=== PATIENT | female | born 1940 | race Asian ===

== ENCOUNTER → 2016-07-05 | Outpatient (CLI) | payer BC ==
[~2016-07-05] MED LIST: MULT-506 PO; PANT40TA PO
== END | disposition home or self-care (01) ==
LOC: C.PAPS 10:36
PROVIDERS: ATTEND Obstetrics & Gynecology
DX: Z12.4 Encounter for screening for malignant neoplasm of cervix (principal)

== ENCOUNTER → 2016-08-21 | Outpatient (CLI) | payer BC ==
[2016-08-21 16:58] LABS: BASO % 1.1 %; BASO ABS # 0.06 K/uL (0-0.2); COMPLETE YES; EOS % 0.8 %; HEMATOCRIT 39.7 % (37-47); IG% 0.2 %; LYMPH % 45.4 %; LYMPH ABS # 2.42 K/uL (1.2-3.4); MEAN CELL VOLUME 93.2 fL (80-100); MEAN CORPUSCULAR HEMOGLOBIN 31.7 pg (25-34); MEAN PLATELET VOLUME 11.5 fL (7.4-10.4); MONO % 6.9 %; NEUT % 45.6 %; PLATELET COUNT 227 K/uL (130-400); RED BLOOD COUNT 4.26 M/uL (4.2-5.4); WHITE BLOOD COUNT 5.33 K/uL (4.8-10.8)
[2016-08-21 17:09] LABS: BLOOD UREA NITROGEN 23 mg/dl (7-18); CALCIUM 9.2 mg/dl (8.5-10.1); CARBON DIOXIDE 29 mmol/L (21-32); CHLORIDE 102 mmol/L (98-107); CREATININE 0.71 mg/dl (0.60-1.20); GLUCOSE 81 mg/dl (70-99); POTASSIUM 3.7 mmol/L (3.5-5.1); SODIUM 139 mmol/L (136-145)
[2016-08-21 17:20] LABS: THYROID STIMULATING HORMONE 0.752 uIu/ml (0.300-4.500)
== END | disposition home or self-care (01) ==
LOC: C.LABBC 13:22
PROVIDERS: ATTEND Internal Medicine Geriatric Medicine
DX: L65.9 Nonscarring hair loss, unspecified (principal); M81.0 Age-related osteoporosis without current pathological fracture; E55.9 Vitamin D deficiency, unspecified

== ENCOUNTER → 2016-11-02 | Outpatient (CLI) | payer BC | END | disposition home or self-care (01) | LOC: C.MAMM 10:11 | PROVIDERS: ATTEND Internal Medicine | DX: M81.0 Age-related osteoporosis without current pathological fracture (principal) ==

== ENCOUNTER → 2017-02-23 | Outpatient (CLI) | payer BC ==
[2017-02-23 16:58] LABS: BLOOD UREA NITROGEN 20 mg/dl (7-18); CREATININE 0.72 mg/dl (0.60-1.20)
== END | disposition home or self-care (01) ==
LOC: C.LABBC 14:12
PROVIDERS: ATTEND Podiatrist Foot & Ankle Surgery
DX: G57.61 Lesion of plantar nerve, right lower limb (principal)

== ENCOUNTER → 2017-02-26 | Outpatient (CLI) | payer BC ==
--- NOTE | 2017-02-26 15:50 | MAMMOGRAPHY REPORT ---
BILATERAL DIGITAL SCREENING MAMMOGRAM WITH CAD: 02/26/2017 CLINICAL HISTORY: Routine screening. Patient has no complaints. TECHNIQUE: Bilateral CC and MLO views were obtained. Current study was also evaluated with a Compute r Aided Detection (CAD) system. COMPARISON: Comparison is made to exams dated: 02/21/2016 mammogram, 02/18/2015 mammogram, 02/17/2014 m ammogram, 01/17/2013 mammogram, 12/28/2010 mammogram, and 04/12/2010 stereotactic biopsy - [facility]. BREAST COMPOSITION: The tissue of both breasts is heterogeneously dense, which may obscure small mas ses. FINDINGS: There is a stable kymberly-shaped metallic biopsy marker in the central right breast. A few carine ign coarse calcifications bilaterally and stable grouping of punctate microcalcifications in the late ral left breast. Mild vascular calcification in both breasts. No new suspicious mass, architectural distortion or cluster of microcalcifications is seen. IMPRESSION: ACR BI-RADS CATEGORY 1: NEGATIVE There is no mammographic evidence of malignancy. A 1 year screening mammogram is recommended. The pa tient will receive written notification of the results. Approximately 10% of breast cancers are not detected with mammography. A negative mammographic report should not delay biopsy if a clinically suggestive mass is present. Marilee Shea M.D. ay/:02/26/2017 15:12:40 Stave Bolt Equalizer: Vidhi QUISPE(R)(M), [facility] letter sent: Normal 1/2 BI-RADS Code: ACR BI-RADS Category 1: Negative
== END | disposition home or self-care (01) ==
LOC: C.MAMM 13:13
PROVIDERS: ATTEND Obstetrics & Gynecology
DX: Z12.31 Encounter for screening mammogram for malignant neoplasm of breast (principal)

== ENCOUNTER → 2017-02-28 | Outpatient (CLI) | payer BC ==
[~2017-02-28] MED LIST changes: +GADAVIST IV PRN
--- NOTE | 2017-02-28 11:26 | DIAGNOSTIC IMAGING REPORT ---
RIGHT FOREFOOT MRI WITH AND WITHOUT INTRAVENOUS CONTRAST HISTORY: Right forefoot pain. 4th toe abnormality. LESION TECHNIQUE: Multiplanar multisequence MRI of the right forefoot was performed both before and after the intravenous administration of contrast. COMPARISON STUDY: None. FINDINGS: No fracture or dislocation within the forefoot. Mild osteoarthritis at the first MTP joint with mild subchondral edema likely due to the degenerative change at the head of the first metatarsal. There is a mild hallux valgus deformity. Bony bunion. No enhancing soft tissue masses identified within the forefoot. No fluid collections. The flexor and extensor tendons appear to be intact. There is mild motion artifact. No abnormal enhancement. IMPRESSION: 1. No masses within the right forefoot. 2. Mild degenerative changes at the first MTP joint. 3. Bony bunion. Electronically signed by: Arvin Silvestre M.D. 02/28/2017 11:25 AM Dictated Date/Time: 02/28/2017 11:17 AM
== END | disposition home or self-care (01) ==
LOC: C.MRI 09:21
PROVIDERS: ATTEND Podiatrist Foot & Ankle Surgery
DX: G57.61 Lesion of plantar nerve, right lower limb (principal); M21.611 Bunion of right foot

== ENCOUNTER → 2017-05-18 | Outpatient (CLI) | payer BC ==
[~2017-05-18] MED LIST changes: -GADAVIST IV PRN
[2017-05-18 13:37] LABS: THYROID STIMULATING HORMONE 0.962 uIu/ml (0.300-4.500)
[2017-05-18 13:50] LABS: LYME DISEASE AB IGG NEG (NEG); LYME DISEASE AB IGM NEG (NEG)
== END | disposition home or self-care (01) ==
LOC: C.LABBC 09:55
PROVIDERS: ATTEND Internal Medicine
DX: E55.9 Vitamin D deficiency, unspecified (principal)

== ENCOUNTER → 2017-06-07 | Outpatient (CLI) | payer BC ==
--- NOTE | 2017-06-07 14:20 | DIAGNOSTIC IMAGING REPORT ---
LEFT KNEE 2 VIEWS CLINICAL HISTORY: Chronic left knee pain FINDINGS: AP and lateral views of the left knee are obtained. No prior studies are available for comparison at the time of dictation. The skeletal structures are osteopenic. No fracture is seen. There is mild tricompartmental degenerative joint space narrowing, greatest at the patellofemoral articulation. There are small patellar enthesophytes as well as degenerative beaking of the tibial spine. A calcified fabella is incidentally noted. There is no significant joint effusion. The overlying soft tissues are within normal limits. IMPRESSION: Osteopenia and mild arthritic change as above. No acute bony abnormality is seen in the left knee. Electronically signed by: Bautista Fulton M.D. 06/07/2017 2:19 PM Dictated Date/Time: 06/07/2017 2:18 PM
--- NOTE | 2017-06-07 14:20 | DIAGNOSTIC IMAGING REPORT ---
R KNEE 1 OR 2 VIEWS ROUTINE HISTORY: 76 years-old Female M54.5 Chronic low back painM25.50 Arthralgia of multiple sitesR7 chronic right knee pain COMPARISON: Left knee radiographs of same day TECHNIQUE: 2 views of the right knee FINDINGS: Mild tricompartment osteoarthritis with mildly demineralized appearance of the bones. Small joint effusion without acute fracture or dislocation. No intra-articular loose body. IMPRESSION: 1. Small joint effusion without acute fracture or dislocation. 2. Mild tricompartmental osteoarthritis. The above report was generated using voice recognition software. It may contain grammatical, syntax or spelling errors. Electronically signed by: Titi Patino M.D. 06/07/2017 2:19 PM Dictated Date/Time: 06/07/2017 2:18 PM
[2017-06-07 17:54] LABS: TRANSFERRIN 271 mg/dl (200-360)
[2017-06-12 04:40] LABS: ANA SCREEN TC 249X POSITIVE (NEGATIVE); ANTI-SS-A <1.0 NEG AI (<1.0 NEG); ANTI-SS-B <1.0 NEG AI (<1.0 NEG); COMPLEMENT C4** TC 44982E 29 MG/DL (16-47)
--- NOTE | 2017-06-12 09:57 | CODING QUERY MEDICAL NECESSITY ---
CQSUPPORTING DIAGNOSIS NEEDED A supporting diagnosis is required for the test/procedure performed on this patient in order for us to be reimbursed by the patient's insurance. Please provide a supporting diagnosis for the following test/procedure listed below next to the test name along with your signature. *If there is no additional diagnosis for this patient that would support the following test/procedure please document that below next to the test/procedure. Test(s)/Procedure(s) that require a supporting diagnosis: DOS 06/07/17 HISTOLOGY TESTING Provider Signature: Date: Thank you Darcie Ortiz [employer] Information Management Once completed, please kindly fax back to [phone] For questions please call [phone]
== END | disposition home or self-care (01) ==
LOC: C.RAD1850 13:55
PROVIDERS: ATTEND Internal Medicine Rheumatology
DX: M25.50 Pain in unspecified joint (principal); M54.5 Low back pain; R76.8 Other specified abnormal immunological findings in serum; M85.88 Other specified disorders of bone density and structure, other site; M25.461 Effusion, right knee; M46.90 Unspecified inflammatory spondylopathy, site unspecified

== ENCOUNTER → 2017-06-12 | Outpatient (CLI) | payer BC ==
--- NOTE | 2017-06-12 13:40 | DIAGNOSTIC IMAGING REPORT ---
BONE SCAN WHOLE BODY HISTORY: Pain. Arthritis. M54.5 Chronic low back painM25.50 Arthralgia of multiple sitesR7 RADIOTRACER: 26.3 mCi Tc-99m MDP STUDY/IMAGES: Planar anterior and posterior whole body imaging was performed 3 hours following the intravenous administration of radiotracer. COMPARISON: 11/06/2006 FINDINGS: Bilateral renal activity is present. Minimal scattered degenerative activity of the shoulders hips as well as knees. No significant abnormal activity characteristics of the spine. Sacroiliac joints show normal activity characteristics. No abnormal soft tissue activity characteristics. IMPRESSION: Minimal degenerative activity in the shoulders hips and knees. Otherwise negative bone scan. The foci of degenerative activity of the spine and ribs in the prior study are not easily appreciated on the current exam. The above report was generated using voice recognition software. It may contain grammatical, syntax or spelling errors. Electronically signed by: Rl Curry M.D. 06/12/2017 1:38 PM Dictated Date/Time: 06/12/2017 1:36 PM
== END | disposition home or self-care (01) ==
LOC: C.NUCL 09:31
PROVIDERS: ATTEND Internal Medicine Rheumatology
DX: M25.50 Pain in unspecified joint (principal); M54.5 Low back pain; R76.8 Other specified abnormal immunological findings in serum

== ENCOUNTER → 2017-08-24 | Outpatient (CLI) | payer BC | END | disposition home or self-care (01) | LOC: C.RDSM 16:34 | PROVIDERS: ATTEND Physical Medicine & Rehabilitation Sports Medicine | DX: M79.671 Pain in right foot (principal); M79.672 Pain in left foot ==

== ENCOUNTER 2024-11-27 11:24 | Inpatient (IN) ==
[2024-11-27] MEDS: SODIUM CHLORIDE 0.9% 1,000 ML IV SCH ×3 (11:46→19:43)
--- NOTE | 2024-11-27 11:49 | Emergency Department Note ---
Impression & Plan Babesiosis, Sepsis, Acute hyponatremia, Acute hypotension ED Provider Note NAME: ALEX VALLE AGE: 83 SEX: F : 1940 ARRIVES VIA: Walk-In INFORMANT: Patient ED PROVIDER(S): Kenneth Byrd DO CHIEF COMPLAINT: Weakness HPI: Patient is an 83-year-old female with a past medical history of a T11 compression fracture, glaucoma, TMJ, leukopenia, IBS who presents to the ER for weakness. Per the daughter she fell 3 weeks ago and had a back fracture. She had a brace. She started with fevers yesterday. She has been unable to really get out of bed. Fevers have been as high as 104. She denies all complaints including cough, congestion, and runny nose. No headache or change in vision. No chest pain or shortness of breath. No belly pain. No nausea, vomiting, or diarrhea. No dysuria, urgency, or frequency. She was to persistent unchanged back pain. ADDITIONAL HISTORY OBTAINED: Per HPI Chronic Medical/Social Conditions Affecting Care: Per HPI PAST MEDICAL HISTORY:See Below PAST SURGICAL HISTORY:See Below FAMILY HISTORY:See Below SOCIAL HISTORY:See Below HOME MEDICATIONS:See Below ALLERGIES:See Below VITALS:See Below PHYSICAL EXAMINATION: GENERAL: Sitting up in bed, alert, well appearing, well nourished, no distress, non-toxic EYE EXAM: normal conjunctiva. PERRL and EOM's grossly intact. OROPHARYNX: Dry mucous membranes NECK: supple, no nuchal rigidity, no adenopathy, non-tender LUNGS: Clear to auscultation. Normal chest wall mechanics HEART: no murmurs, S1 normal and S2 normal ABDOMEN: abdomen soft, non-tender, normo-active bowel sounds, no masses, no rebound or guarding. BACK: Back is symmetrical on inspection and there is no deformity, no midline tenderness, no CVA tenderness. UPPER EXTREMITIES: upper extremities are grossly normal. LOWER EXTREMITIES: No pitting edema. NEURO EXAM: Normal sensorium, cranial nerves II-XII grossly intact, normal speech, no gross weakness of arms, no gross weakness of legs. MEDICAL DECISION MAKING: Patient is an 83-year-old female who presents to the ER for a leukopenia of 4.3. No significant anemia. Thrombocytopenia at 46. Hyponatremia at 128. Bilirubin slightly elevated 2.3. LFTs were unremarkable. Troponin negative. Pro-Samson elevated at 3.6. UA was clean. Babesiosis smear was positive. Patient was given initially IV Zosyn and then IV azithromycin. Patient was given 2 L of IV fluids. Systolic pressures improved from the 70s up to low 100s. She was updated bedside. Discussed case with the hospitalist for further evaluation management treatment. Consults/Care Managements Discussions: Per [facility] Triage Nursing notes reviewed. Limited review of prior medical records performed Vital Signs: reviewed and remarkable for hypotension Differential diagnosis: Differential diagnosis includes etiologies such as sepsis, UTI, pneumonia, metabolic, electrolyte abnormalities, cardiac sources, intracerebral event, toxicologic, neurological, as well as others were entertained. ER treatment provided: See below Diagnostics interpreted by me include EKG and cardiac monitoring as listed below: -Cardiac Monitoring: An order was placed for continuous cardiac monitoring. The monitor shows a rate of 80 with sinus rhythm. -ECG: Sinus rhythm rate of 76 Normal axis No PVCs QTc 402 -Laboratory studies:Interpreted by me as stated above in MDM and shown below. Imaging studies: Xrays: As interpreted by me: Portable AP upright 1 view of the chest shows no focal infiltrate CTs show: CT abdomen pelvis showed no acute pathology Procedures:none Critical Care: I have personally spent 35 minutes of critical care time in the direct management of this patient. This includes bedside care, interpretation of diagnostic studies, and testing, discussion with consultants, patient, and family members, and other required patient management activities. This 35 minutes is in excess of all separately billable procedures. Past Med/Surg History Problem List (Updated 11/27/24 @ 16:49 by Kenneth Byrd DO) Acute hypotension (Acute) Acute hyponatremia (Acute) Sepsis (Acute) Babesiosis (Acute) Transaminitis Hyponatremia Hypotension Babesiosis Low back pain Compression fracture of T11 vertebra Glaucoma (Chronic) Vulvar irritation PMB (postmenopausal bleeding) Skin lesion TMJ arthritis Chronic myofascial pain TMJ (temporomandibular joint syndrome) LPRD (laryngopharyngeal reflux disease) Nasopharyngitis acute Chronic sore throat Dysphagia Cerebral meningioma Ophthalmic migraine Arthritis, multiple joint involvement Fecal incontinence Endometrial polyp Pulmonary nodule, left (Chronic) Bilateral ankle pain (Chronic) Bilateral foot pain (Chronic) Vitamin D deficiency (Acute) Spondyloarthropathy (Acute) Postmenopausal atrophic vaginitis (Acute) Positive ADRIANE (antinuclear antibody) (Acute) Leukopenia (Acute) Irritable bowel syndrome (Acute) Hallux valgus (acquired), left foot (Acute) Chronic GERD (Acute) Radial scar of breast Gross hematuria Osteopenia after menopause (Chronic) Hyperlipidemia (Chronic) Diet controlled Hypermobile Corrie-Danlos syndrome (Chronic) Pt has no recollection of Corrie-Danlos syndrome Just hypermobility syndrome - no recent issues - just extra flexible Per PCP note 12/16/20= "Hypermobility arthralgia- doing better- exercise discussed." Had stress ECHO 2012 with no significant structural heart issues noted Arthritis of knee (Chronic) Medical History Arthritis GERD (gastroesophageal reflux disease) Surgical History H/O wrist surgery H/O colonoscopy History of cataract surgery Hx of left breast biopsy History of bilateral tubal ligation History of open reduction and internal fixation (ORIF) procedure History of cholecystectomy History of appendectomy History of tooth extraction Family History Mother Diabetes Hypertension Sister Diabetes Thyroid cancer Lung cancer Coronary heart disease Brother Hypertension Cancer of kidney Father Myocardial infarction Unknown Atherosclerosis Denies family history of Ovarian cancer Prostate cancer Breast cancer Colorectal cancer Stroke Social History Smoking Status: Never smoker Second Hand Exposure: No; Do You Dip or Chew Tobacco: No; Hx Alcohol Use: Yes Alcohol type: wine Alcohol Intake Frequency: Monthly or Less Hx Substance Use: No Preferred Language: Monegasque Communication Ability: Effective Visual Impairment: Limited Hearing Ability: Normal Rn Rehabilitation Required: No Beliefs That Will Affect Care: None marital status: / Current Living Situation: Alone current occupational status: retired How many Children do You have: 2 Feels Safe at Home: Yes Childhood Exposure to Second-Hand Smoke: No caffeine: Yes (drinks coffee and soda ) Dental Care, Regularly: Yes Physical Activity Frequency: Daily Seatbelt Use: always Sunscreen Use: No Assistive Devices: Glasses Allergies Allergies Allergy/AdvReac Type Severity Reaction Status Date / Time No Known Allergies Allergy Unknown Verified 11/27/24 14:38 Home Meds Home Medications Medication Instructions Recorded Confirmed cholecalciferol (vitamin D3) 50 50 mcg PO DAILY 07/19/23 11/27/24 mcg (2,000 unit) capsule multivitamin 1 tab PO DAILY 07/19/23 11/27/24 multivitamin with minerals 1 tab PO DAILY 01/01/24 11/27/24 (Hair,Skin and Nails tablet) latanoprost 0.005 % eye drops 1 drp ophthalmic (eye) HS 06/13/24 11/27/24 timolol 0.5 % eye drops 1 drp ophthalmic (eye) QAM 06/13/24 11/27/24 acetaminophen 500 mg tablet 500 mg PO Q6H PRN Pain 11/27/24 11/27/24 estradiol 0.01% (0.1 mg/gram) 0.5 g vaginal HS PRN dryness 11/27/24 11/27/24 vaginal cream pantoprazole 20 mg tablet,delayed 20 mg PO QAM 11/27/24 11/27/24 release Results & Data (ED) Vital Signs Vital Signs - 24 hr 11/27/24 11:27 11/27/24 11:33 11/27/24 11:45 Temperature 36.8 C Temperature Source Oral Pulse Rate 87 74 76 Pulse Rate [Apical] Pulse Rhythm Regular Pulse Strength Normal Respiratory Rate 16 16 Respiratory Effort / Characteristics Non-Labored Spontaneous Respiratory Depth Normal Respiratory Pattern Regular Blood Pressure 73/44 L Blood Pressure [Left Arm] Blood Pressure Mean 53 Blood Pressure Mean [Left Arm] Blood Pressure Position Sitting Pulse Oximetry 97 99 Oxygen Delivery Method Room Air Room Air Sepsis Recent Fever Within 48 Hours Yes Sepsis New/Unexplained Change in Mental Status No Sepsis Action Taken by Nursing No Action Required 11/27/24 14:22 11/27/24 15:39 Temperature Temperature Source Pulse Rate 62 Pulse Rate [Apical] 61 Pulse Rhythm Pulse Strength Respiratory Rate 18 Respiratory Effort / Characteristics Respiratory Depth Respiratory Pattern Blood Pressure Blood Pressure [Left Arm] 99/64 L Blood Pressure Mean Blood Pressure Mean [Left Arm] 75 Blood Pressure Position Pulse Oximetry 95 Oxygen Delivery Method Room Air Sepsis Recent Fever Within 48 Hours Sepsis New/Unexplained Change in Mental Status Sepsis Action Taken by Nursing Laboratory Data 11/27/24 11:40 11/27/24 11:40 Lab Results 11/27/24 11/27/24 11/27/24 Range/Units 11:40 11:48 14:09 WBC 4.38 L (4.8-10.8) K/ul RBC 4.01 L (4.20-5.40) M/uL Hgb 12.3 (12.0-16.0) g/dl Hct 35.5 L (37.0-47.0) % MCV 88.5 (80.0-100.0) fL MCH 30.7 (25.0-34.0) pg MCHC 34.6 (32.0-36.0) g/dL RDW Std Deviation 42.5 (36.4-46.3) fL RDW Coeff of Lydia 13.2 (11.5-14.5) % Plt Count 46 L (130-400) K/uL MPV 12.6 H (9.4-12.4) fL Immature Gran % (Auto) 0.5 % Neut % (Auto) 59.1 % Lymph % (Auto) 21.5 % [place] % (Auto) 18.7 % Eos % (Auto) 0.0 % Baso % (Auto) 0.2 % Neut # (Auto) 2.59 (1.40-6.50) K/uL Lymph # (Auto) 0.94 L (1.20-3.40) K/uL [place] # (Auto) 0.82 H (0.11-0.59) K/uL Eos # (Auto) 0.00 (0.00-0.50) K/uL Baso # (Auto) 0.01 (0.00-0.20) K/uL Immature Gran # (Auto) 0.02 (0.01-0.20) K/uL Peripher Smr Path Cons PT 11.6 (9.0-12.0) Seconds INR 1.1 (0.9-1.1) Sodium 129 L (136-145) mmol/L Potassium 3.9 (3.5-5.1) mmol/L Chloride 97 L (98-107) mmol/L Carbon Dioxide 25 (21-32) mmol/L Anion Gap 7 (3-11) BUN 24 H (6-23) mg/dl Creatinine 0.77 (0.6-1.2) mg/dl Est Cr Clr Drug Dosing 48.6 ml/min eGFR 76.97 BUN/Creatinine Ratio 31.2 H (10-20) Glucose 130 H (70-99(Fasting)) mg/dl Lactate 1.6 (0.4-2.0) mmol/L Calcium 8.7 (8.6-10.3) mg/dl Magnesium 2.1 (1.7-2.4) mg/dl Total Bilirubin 2.3 H (0.2-1.0) mg/dl Direct Bilirubin 0.6 H (0-0.2) mg/dl AST 78 H (13-39) U/L ALT 48 (7-52) U/L Alkaline Phosphatase 157 H (34-104) U/L Troponin I High Sens 8.0 (0-14) pg/ml Total Protein 7.1 (6.0-8.3) gm/dl Albumin 3.3 L (3.4-5.0) gm/dl Procalcitonin 3.65 H (0-0.5) ng/ml Urine Color Yellow Urine Appearance Clear (Clear) Urine pH 6.0 (4.5-7.5) Ur Specific [place] 1.028 (1.000-1.030) Urine Protein Negative (Negative) Urine Glucose (UA) Negative (Negative) Urine Ketones Negative (Negative) Urine Blood Negative (Negative) Urine Nitrite Negative (Negative) Urine Bilirubin Negative (Negative) Urine Urobilinogen Negative (Negative) Ur Leukocyte Esterase Negative (Negative) Urine Comment Acetaminophen (10-30) ug/ml Anaplasma Smear See Comment Babesia Smear See Comment A Lyme Disease Screen Negative (Negative) Blood Parasites ID Present 11/27/24 Range/Units 15:25 WBC (4.8-10.8) K/ul RBC (4.20-5.40) M/uL Hgb (12.0-16.0) g/dl Hct (37.0-47.0) % MCV (80.0-100.0) fL MCH (25.0-34.0) pg MCHC (32.0-36.0) g/dL RDW Std Deviation (36.4-46.3) fL RDW Coeff of Lydia (11.5-14.5) % Plt Count (130-400) K/uL MPV (9.4-12.4) fL Immature Gran % (Auto) % Neut % (Auto) % Lymph % (Auto) % [place] % (Auto) % Eos % (Auto) % Baso % (Auto) % Neut # (Auto) (1.40-6.50) K/uL Lymph # (Auto) (1.20-3.40) K/uL [place] # (Auto) (0.11-0.59) K/uL Eos # (Auto) (0.00-0.50) K/uL Baso # (Auto) (0.00-0.20) K/uL Immature Gran # (Auto) (0.01-0.20) K/uL Peripher Smr Path Cons PT (9.0-12.0) Seconds INR (0.9-1.1) Sodium (136-145) mmol/L Potassium (3.5-5.1) mmol/L Chloride (98-107) mmol/L Carbon Dioxide (21-32) mmol/L Anion Gap (3-11) BUN (6-23) mg/dl Creatinine (0.6-1.2) mg/dl Est Cr Clr Drug Dosing ml/min eGFR BUN/Creatinine Ratio (10-20) Glucose (70-99(Fasting)) mg/dl Lactate (0.4-2.0) mmol/L Calcium (8.6-10.3) mg/dl Magnesium (1.7-2.4) mg/dl Total Bilirubin (0.2-1.0) mg/dl Direct Bilirubin (0-0.2) mg/dl AST (13-39) U/L ALT (7-52) U/L Alkaline Phosphatase (34-104) U/L Troponin I High Sens (0-14) pg/ml Total Protein (6.0-8.3) gm/dl Albumin (3.4-5.0) gm/dl Procalcitonin (0-0.5) ng/ml Urine Color Urine Appearance (Clear) Urine pH (4.5-7.5) Ur Specific [place] (1.000-1.030) Urine Protein (Negative) Urine Glucose (UA) (Negative) Urine Ketones (Negative) Urine Blood (Negative) Urine Nitrite (Negative) Urine Bilirubin (Negative) Urine Urobilinogen (Negative) Ur Leukocyte Esterase (Negative) Urine Comment Acetaminophen 13 (10-30) ug/ml Anaplasma Smear Babesia Smear Lyme Disease Screen (Negative) Blood Parasites ID Administered Medications Discontinued Medications Atovaquone (Atovaquone 750 Mg/5 Ml Udc) 750 mg PO 1511 STA Stop: 11/27/24 15:12 Last Admin: 11/27/24 15:34 Dose: 750 mg Documented By: JANUARY Sodium Chloride (Nss) 1,000 mls @ 999 mls/hr IV .Q1H1M NAVIN Stop: 11/27/24 13:45 Last Infusion: 11/27/24 13:59 Dose: Infused Documented By: Admin: 11/27/24 12:32 Dose: 999 mls/hr Documented By: Infusion: 11/27/24 12:32 Dose: Infused Documented By: Admin: 11/27/24 11:46 Dose: 999 mls/hr Documented By: JANUARY Piperacillin Sod/Tazobactam Sod (Zosyn) 4.5 gm in 100 mls @ 200 mls/hr IV NOW ONE; Protocol Stop: 11/27/24 12:08 Last Infusion: 11/27/24 13:58 Dose: Infused Documented By: Admin: 11/27/24 12:31 Dose: 200 mls/hr Documented By: JANUARY Azithromycin (Zithromax) 500 mg in 255 mls @ 127.5 mls/hr IV NOW ONE Stop: 11/27/24 15:39 Last Admin: 11/27/24 14:19 Dose: 127.5 mls/hr Documented By: MAURICE Sodium Chloride (Nss) 1,000 mls @ 999 mls/hr IV .Q1H1M NAVIN Stop: 11/27/24 16:00 Last Admin: 11/27/24 15:35 Dose: 999 mls/hr Documented By: JANUARY Ioversol (Optiray 320 100ml) 93 ml IV ONCE ONE Stop: 11/27/24 13:05 Last Admin: 11/27/24 13:05 Dose: 93 ml Documented By: BEVERLY Imaging Data Radiologist's Impression: Chest X-Ray 11/27/24 11:33 XR chest 1V portable CLINICAL HISTORY: Sepsis COMPARISON STUDY: 11/05/2024 FINDINGS: Stable mild cardiomegaly without pulmonary vascular congestion. No effusion, consolidation, or pneumothorax. IMPRESSION: No acute findings. ACT 112: Negative or not required by law. Electronically signed by: Westley Buckner M.D. 11/27/2024 12:09 PM Abdomen/Pelvis CT 11/27/24 11:[address] WITH IV CONTRAST CT DOSE: 797.14 mGy.cm HISTORY: abd pain sepsis TECHNIQUE: Multiaxial CT images of the abdomen and pelvis were performed following the IV administration of 90 cc of Optiray, A dose lowering technique was utilized adhering to the principles of ALARA. COMPARISON STUDY: 03/25/2021 FINDINGS: ABDOMEN: Gallbladder is surgically absent, stable. There are a few stable small liver cysts. Stable calcification inferiorly at the liver. There is interval increased size of the spleen measuring upper limits of normal at 12 cm. Pancreas and adrenal glands are unremarkable. Kidneys show no hydronephrosis or calculi. There are atherosclerotic calcifications. No abdominal aortic aneurysm. Pelvis: There is a possible 12 mm endometrial polyp or mass at the uterus. No adnexal mass seen. Urinary bladder is nondistended. No bowel inflammation or obstruction seen. No free fluid, free air, or abscess. Osseous structures: There is a moderate vertebral body compression fracture at T11 and a mild vertebral body compression fracture at L2, interval. There is a stable mild vertebral body compression abnormality at L3. IMPRESSION: 1. Interval vertebral body compression fractures at T11 and L2. 2. Possible small endometrial polyp/mass. 3. Interval increased size of the spleen, now upper limits of normal. 4. No other acute findings seen. ACT 112: Negative or not required by law. The above report was generated using voice recognition software. It may contain grammatical, syntax or spelling errors. Electronically signed by: Westley Buckner M.D. 11/27/2024 1:18 PM Discharge Plan Visit Data Chief Complaint: Referred by Doctor Stated Complaint: INFECTION/SEPSIS, DOC REF ED Provider: Kenneth Byrd Discharge Problem: Babesiosis, Sepsis, Acute hyponatremia, Acute hypotension Condition: Fair Forms Stand Alone Forms: My [employer] Prescriptions Prescriptions: No Action Hair,Skin and Nails Tablet 1 tab PO DAILY multivitamin Tablet 1 tab PO DAILY cholecalciferol (vitamin D3) 50 mcg (2,000 unit) capsule 50 mcg PO DAILY timolol 0.5 % drops 1 drp ophthalmic (eye) QAM latanoprost 0.005 % drops 1 drp ophthalmic (eye) HS acetaminophen [Tylenol Ex Str Rapid Release] 500 mg Tablet 500 mg PO Q6H PRN (Reason: Pain) pantoprazole 20 mg tablet,delayed release (DR/EC) 20 mg PO QAM Rx Instructions: TAKE 1 TABLET BY MOUTH DAILY estradiol 0.01 % (0.1 mg/gram) cream 0.5 g vaginal HS PRN (Reason: dryness) Rx Instructions: use externally nightly for 3 months Referrals Referrals: Saadia Pereira DO [Primary Care Provider] - Discharge Problem: Sepsis Qualifiers: Sepsis type: sepsis due to unspecified organism Sepsis acute organ dysfunction status: unspecified Qualified Code(s): A41.9 - Sepsis, unspecified organism
--- NOTE | 2024-11-27 12:10 | XRay Report ---
XR chest 1V portable CLINICAL HISTORY: Sepsis COMPARISON STUDY: 11/05/2024 FINDINGS: Stable mild cardiomegaly without pulmonary vascular congestion. No effusion, consolidation, or pneumothorax. IMPRESSION: No acute findings. ACT 112: Negative or not required by law. Electronically signed by: Westley Buckner M.D. 11/27/2024 12:09 PM
[2024-11-27] MEDS: PIPERACILLIN/TAZOBACTAM 4.5 GM/100 ML BAG IV ONE (12:31)
[2024-11-27 12:33] LABS: Alanine Aminotransferase 48.0 U/L (7-52); Alkaline Phosphatase 157.0 U/L (34-104); Anion Gap 7.0 (3-11); Bilirubin,Total 2.3 mg/dl (0.2-1.0); Blood Urea Nitrogen 24.0 mg/dl (6-23); Calcium 8.7 mg/dl (8.6-10.3); Carbon Dioxide 25.0 mmol/L (21-32); Chloride 97.0 mmol/L (98-107); Creatinine Clr Calc Pharmacy 48.6 ml/min; Glucose 130.0 mg/dl (70-99(Fasting)); Magnesium 2.1 mg/dl (1.7-2.4); Potassium 3.9 mmol/L (3.5-5.1); Sodium 129.0 mmol/L (136-145); Total Protein 7.1 gm/dl (6.0-8.3)
[2024-11-27 12:38] LABS: Procalcitonin 3.65 ng/ml (0-0.5)
[2024-11-27 12:41] LABS: INR 1.1 (0.9-1.1); Prothrombin Time 11.6 Seconds (9.0-12.0)
[2024-11-27 12:50] LABS: Hematocrit (blood only) 35.5 % (37.0-47.0); Hemoglobin 12.3 g/dl (12.0-16.0); Mean Corpuscular Hemoglobin 30.7 pg (25.0-34.0); Mean Corpuscular Volume 88.5 fL (80.0-100.0); Platelet Count 46 K/uL (130-400); RDW Standard Deviation 42.5 fL (36.4-46.3); Red Blood Count 4.01 M/uL (4.20-5.40); White Blood Count 4.38 K/ul (4.8-10.8)
[2024-11-27 13:04] LABS: Lyme Screen Rflx Confirmation Negative (Negative)
[2024-11-27] MEDS: OPTIRAY 320 100ml IV ONE (13:05)
--- NOTE | 2024-11-27 13:20 | CT Scan Report ---
ABDOMEN AND PELVIS CT WITH IV CONTRAST CT DOSE: 797.14 mGy.cm HISTORY: abd pain sepsis TECHNIQUE: Multiaxial CT images of the abdomen and pelvis were performed following the IV administrat ion of 90 cc of Optiray, A dose lowering technique was utilized adhering to the principles of ALARA. COMPARISON STUDY: 03/25/2021 FINDINGS: ABDOMEN: Gallbladder is surgically absent, stable. There are a few stable small liver cysts. Stable c alcification inferiorly at the liver. There is interval increased size of the spleen measuring upper limits of normal at 12 cm. Pancreas and adrenal glands are unremarkable. Kidneys show no hydronephros is or calculi. There are atherosclerotic calcifications. No abdominal aortic aneurysm. Pelvis: There is a possible 12 mm endometrial polyp or mass at the uterus. No adnexal mass seen. Urin perico bladder is nondistended. No bowel inflammation or obstruction seen. No free fluid, free air, or a bscess. Osseous structures: There is a moderate vertebral body compression fracture at T11 and a mild vertebr al body compression fracture at L2, interval. There is a stable mild vertebral body compression abnor mality at L3. IMPRESSION: 1. Interval vertebral body compression fractures at T11 and L2. 2. Possible small endometrial polyp/mass. 3. Interval increased size of the spleen, now upper limits of normal. 4. No other acute findings seen. ACT 112: Negative or not required by law. The above report was generated using voice recognition software. It may contain grammatical, syntax o r spelling errors. Electronically signed by: Westley Buckner M.D. 11/27/2024 1:18 PM
[2024-11-27 13:31] LABS: Immature Granulocytes # (auto) 0.02 K/uL (0.01-0.20); Immature Granulocytes % (auto) 0.5 %
[2024-11-27] MEDS: AZITHROMYCIN 500 MG/255 ML BAG IV ONE (14:19)
[2024-11-27 14:31] LABS: Appearance Urine Clear (Clear); Glucose Urine UA Negative (Negative)
--- NOTE | 2024-11-27 15:22 | History & Physical Report ---
Date of Service November 27, 2024 Assessment & Plan (1) Babesiosis: (2) Hypotension: (3) Hyponatremia: (4) Transaminitis: (5) Compression fracture of T11 vertebra: Plan Patient is an 83-year-old female with past medical history of GERD, she is otherwise healthy and walks 10,000 steps per day. Patient presented after referral by PCP for fevers, chills, body aches, dark urine since Sunday. 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 Patient also noted that she slipped and fell onto her back approximately 3 weeks ago and was found to have a T11 and L2 compression fracture which she has been following with orthospine for. #babesiosis - With transaminitis, splenomegaly (Noted on APCT), leukopenia, thrombocytopenia, fevers, body/joint aches, chills. Pro-Samson 3.65, lactate negative. patient denies any recent tick bites, did have one several years ago. Empirically given Zosyn 4.5G IV in ED given clinically appeared septic; discontinue Continue treatment with azithromycin (500 Mg IV day 1, followed by 250 Mg daily) and atovaquone 750 mg PO q12h - recommend treatment for 7 to 10 days - follow blood cultures Pain control with oxycodone 2.5 Mg/5 Mg p.o. as needed; avoid Tylenol with transaminitis and NSAIDs with thrombocytopenia Dehydrated with recent poor p.o. intake/fatigue - 2L NSS bolus followed by NSS at 80 mL/hour x 1L, promote oral hydration trend CBC and CMP PT/OT ordered - will send anaplasmosis PCR, recommended repeat lyme screen in 2-4 weeks; defer ppx doxycycline at this time #Hypotension - suspect 2/2 hypovolemia with poor p.o. intake. Patient stated baseline is typically 110/70. As low as 73/44 in ED, improved to 99/64 at time of admission after 1L NSS bolus. Additional 1L NSS bolus ordered Followed by NSS at 80 mL/hour x 1L Promote oral hydration #Hyponatremia - NA 129, BUN 24, BUN/CR ratio 31.2. Suspect 2/2 hypovolemic hyponatremia with dehydration. Other electrolytes stable. renal function stable. IV fluids as above Trending BMP If fails to improve with IV fluids consider additional testing including serum osmolality, urine osmolality, urine sodium #Transaminitis T. bili 2.3, direct bili 0.6, AST 78, alk phos 157 on admission. 2/2 babesiosis versus recent Tylenol use. asymptomatic. Tylenol level ordered Avoid further Tylenol Trend CMP #Fall/T11 compression fracture/L2 compression fracture - S/p mechanical fall approximately 3 weeks ago, unrelated to above. Patient already following with orthospine. Was treating with Tylenol scheduled, avoid at this time given transaminitis Continue back brace PT/OT as above Continue to follow with orthospine in outpatient setting #Endometrial polyp/mass noted on AP CT Follow-up with outpatient HOME ADVISOR #GERD continue PPI VTE ppx: SCDs, avoid chemical PPx with thrombocytopenia, encourage ambulation as tolerated Dispo: med/telemetry possible dc home 11/28 if BP improves Admission and Anticipated Discharge Date Admission Date: 11/27/24 History of Present Illness Chief Complaint: fevers, referral by pcp Primary Care Provider: Saadia Pereira DO Patient is an 83-year-old female with past medical history of GERD, she is otherwise healthy and walks 10,000 steps per day. Patient presented after referral by PCP for fevers, chills, body aches, dark urine since Sunday. 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 Patient also noted that she slipped and fell onto her back approximately 3 weeks ago and was found to have a T11 and L2 compression fracture which she has been following with orthospine for. Patient seen with daughter at bedside. Patient stated on Sunday she began with chills. On Sunday she felt pretty well and went on a walk into see Dr. John for her spine. Sunday she then began to develop significant fatigue and laid in bed for most of the day. Her daughter noticed a fever on Sunday and took her temperature which was 104 F, which resolved with cold compress and Tylenol. Patient also noted she has had dark yellow/orangecolored urine for the past 2 to 3 days as well as muscle aches. Patient stated she typically has episodes where she gasps for air when she is sick, which she did the first few days however now resolved, denies any shortness of breath, chest pain, acid reflux. She has not been able to eat or drink much for the past few days due to feeling sick. She typically has constipation at baseline however stated her stool is softer. She endorses nausea but no vomiting. She is feeling fatigued and with significant joint pain at bedside. She stated she was bit by a tick many years ago and was prescribed an antibiotic by urgent care, asymptomatic since. She denies any recent tick bites, no pets in her home; however she does live in the [place] and walks outside daily. She denies any recent travel outside of the country. Patient also noted she slipped and fell while walking approximately 3 weeks ago landing on her buttocks. She had outpatient imaging which revealed possible compression fracture of her spine, she saw orthospine who stated it was unclear as to whether this was acute or chronic. She is treating this with Tylenol and a back brace. She has been taking Tylenol scheduled every 8 hours for the past few weeks and intermittent Advil as needed. Patient denies any significant nicotine or alcohol use. She did take her home medications this morning. She has a living will stating DNR/DNI status which she would like to maintain. Allergies Allergy/AdvReac Type Severity Reaction Status Date / Time No Known Allergies Allergy Unknown Verified 11/27/24 14:38 Home Medications Medication Instructions Recorded Confirmed Type cholecalciferol (vitamin D3) 50 50 mcg PO DAILY 07/19/23 11/27/24 History mcg (2,000 unit) capsule multivitamin 1 tab PO DAILY 07/19/23 11/27/24 History multivitamin with minerals 1 tab PO DAILY 01/01/24 11/27/24 History (Hair,Skin and Nails tablet) latanoprost 0.005 % eye drops 1 drp ophthalmic (eye) HS 06/13/24 11/27/24 History timolol 0.5 % eye drops 1 drp ophthalmic (eye) QAM 06/13/24 11/27/24 History acetaminophen 500 mg tablet 500 mg PO Q6H PRN Pain 11/27/24 11/27/24 History estradiol 0.01% (0.1 mg/gram) 0.5 g vaginal HS PRN dryness 11/27/24 11/27/24 History vaginal cream pantoprazole 20 mg tablet,delayed 20 mg PO QAM 11/27/24 11/27/24 History release Past Med/Surg History Problem List (Updated 11/27/24 @ 16:49 by Kenneth Byrd DO) Acute hypotension (Acute) Acute hyponatremia (Acute) Sepsis (Acute) Babesiosis (Acute) Transaminitis Hyponatremia Hypotension Babesiosis Low back pain Compression fracture of T11 vertebra Glaucoma (Chronic) Vulvar irritation PMB (postmenopausal bleeding) Skin lesion TMJ arthritis Chronic myofascial pain TMJ (temporomandibular joint syndrome) LPRD (laryngopharyngeal reflux disease) Nasopharyngitis acute Chronic sore throat Dysphagia Cerebral meningioma Ophthalmic migraine Arthritis, multiple joint involvement Fecal incontinence Endometrial polyp Pulmonary nodule, left (Chronic) Bilateral ankle pain (Chronic) Bilateral foot pain (Chronic) Vitamin D deficiency (Acute) Spondyloarthropathy (Acute) Postmenopausal atrophic vaginitis (Acute) Positive ADRIANE (antinuclear antibody) (Acute) Leukopenia (Acute) Irritable bowel syndrome (Acute) Hallux valgus (acquired), left foot (Acute) Chronic GERD (Acute) Radial scar of breast Gross hematuria Osteopenia after menopause (Chronic) Hyperlipidemia (Chronic) Diet controlled Hypermobile Corrie-Danlos syndrome (Chronic) Pt has no recollection of Corrie-Danlos syndrome Just hypermobility syndrome - no recent issues - just extra flexible Per PCP note 12/16/20= "Hypermobility arthralgia- doing better- exercise discussed." Had stress ECHO 2012 with no significant structural heart issues noted Arthritis of knee (Chronic) Medical History Arthritis GERD (gastroesophageal reflux disease) Surgical History H/O wrist surgery H/O colonoscopy History of cataract surgery Hx of left breast biopsy History of bilateral tubal ligation History of open reduction and internal fixation (ORIF) procedure History of cholecystectomy History of appendectomy History of tooth extraction Family History Mother Diabetes Hypertension Sister Diabetes Thyroid cancer Lung cancer Coronary heart disease Brother Hypertension Cancer of kidney Father Myocardial infarction Unknown Atherosclerosis Denies family history of Ovarian cancer Prostate cancer Breast cancer Colorectal cancer Stroke Social History Smoking Status: Never smoker Second Hand Exposure: No; Do You Dip or Chew Tobacco: No; Hx Alcohol Use: No Hx Substance Use: No Preferred Language: [place] Communication Ability: Effective Visual Impairment: Limited Hearing Ability: Normal Fisheries Technician Required: No Beliefs That Will Affect Care: None marital status: / Current Living Situation: Alone current occupational status: retired How many Children do You have: 2 Other Information That Helps Us Care for You: No Feels Safe at Home: Yes Safety Concerns: Feels Safe At This Time Childhood Exposure to Second-Hand Smoke: No caffeine: Yes (drinks coffee and soda ) Dental Care, Regularly: Yes Physical Activity Frequency: Daily Seatbelt Use: always Sunscreen Use: No Assistive Devices: Glasses Review of Systems Review of Systems: See HPI Physical Exam Physical Exam: The patient is awake, alert and oriented 3, well developed and well nourished, normocephalic and atraumatic, in no acute distress. Non-toxic appearing. HEENT- EOMI, mucous membranes dry. Hearing grossly intact. Heart-normal S1 and S2. No murmurs, rubs or gallops. Lungs-clear bilaterally, no respiratory distress, no accessory muscle use. Abdomen-normal bowel sounds and soft. No ascites noted. Non-tender. Extremities- no clubbing, cyanosis, or edema. Rheumatologic-normal range of motion. Psychiatric-normal affect. Results & Data Results & Data Vital Signs (Past 12 Hours) Vital Signs Temp Pulse Pulse Resp BP BP Pulse Ox 11/27/24 14:22 61 18 99/64 L 95 11/27/24 11:45 76 11/27/24 11:33 74 16 99 11/27/24 11:27 36.8 C 87 16 73/44 L 97 O2 Del Method 11/27/24 14:22 Room Air 11/27/24 11:45 11/27/24 11:33 Room Air 11/27/24 11:27 Room Air Laboratory Results reviewed CBC, CMP, PT/INR, lactate, troponin, procalcitonin, UA, tick smear, peripheral smear Diagnostic Findings reviewed CXR and AP CT Medications Administered ED1L NSS bolus, Zosyn 4.5 g IV, azithromycin 500 Mg IV Code Status & VTE Plan Code Status DNR/DNI VTE Prophylaxis Plan VTE Prophylaxis will be ordered: Yes Supervising Physician Co-Signing Physician Notes I personally saw and examined the patient. I independently reviewed the labs, EKG, imaging, problem list, medication list, past medical history and family history. I verified all white points and agree with Marielena Torres PA-C with the following exceptions and/or additions: 83 year old female presents to the ER with generalized muscles aches, chills and weakness. No focal infective symptoms. O/E HS RRR, no murmurs, Chest CTAB, Abdo SNT, no areas of cellulitis A/P Babesiosis - noted on smear, parasite percentage pending, azithromycin + atovaquone, consult ID for ongoing advice PG Care Time/CCT Total # of Minutes Spent Total Time Spent with Patient: Total time spent is greater than 50% in coordination of care (as documented) at patient's floor/unit and/or counseling patient: Coding Level of Care Code 81818 INT INP/OBS CARE 3MIN Diagnoses Babesiosis B60.00 Hypotension I95.9 Hyponatremia E87.1 Transaminitis R74.01 Compression fracture of T11 vertebra S22.080A
[2024-11-27] MEDS: ATOVAQUONE 750 MG/5 ML UDC PO STA (15:34)
[2024-11-27] MEDS ORDERED: MELATONIN 3 MG TAB PO PRN (18:31)
[2024-11-27] MEDS: ATOVAQUONE 750 MG/5 ML UDC PO SCH (20:19)
[2024-11-27] MEDS: LATANOPROST 0.005% OP SOLN 2.5 ML BTL OP SCH (20:20)
[2024-11-27] MEDS: ACETAMINOPHEN 500 MG TAB PO PRN (20:21)
[2024-11-27] MEDS: SODIUM CHLORIDE 0.9% 1,000 ML IV ONE (23:40)
[2024-11-28] MEDS: ACETAMINOPHEN 500 MG TAB PO STA ×2 (00:03→20:00)
[2024-11-28] MEDS: ONDANSETRON INJ 2 MG/ML 2 ML VIAL IV PRN (05:03)
[2024-11-28] MEDS: METOPROLOL TARTRATE 1 MG/ML VIAL IV STA ×3 (05:33→06:11)
[2024-11-28 07:44] LABS: Hematocrit (blood only) 30.7 % (37.0-47.0); Hemoglobin 10.5 g/dl (12.0-16.0); Mean Corpuscular Hemoglobin 30.3 pg (25.0-34.0); Mean Corpuscular Volume 88.7 fL (80.0-100.0); Platelet Count 56 K/uL (130-400); RDW Standard Deviation 43.6 fL (36.4-46.3); Red Blood Count 3.46 M/uL (4.20-5.40); White Blood Count 4.77 K/ul (4.8-10.8)
[2024-11-28 08:02] LABS: Alanine Aminotransferase 36.0 U/L (7-52); Albumin Globulin Ratio 1.0 (0.9-2); Alkaline Phosphatase 123.0 U/L (34-104); Anion Gap 6.0 (3-11); Bilirubin,Total 1.6 mg/dl (0.2-1.0); Blood Urea Nitrogen 15.0 mg/dl (6-23); Calcium 7.8 mg/dl (8.6-10.3); Carbon Dioxide 23.0 mmol/L (21-32); Chloride 105.0 mmol/L (98-107); Creatinine Clr Calc Pharmacy 60.9 ml/min; Globulin 3.0 gm/dl (2.5-4.0); Glucose 98.0 mg/dl (70-99(Fasting)); Magnesium 1.9 mg/dl (1.7-2.4); Potassium 3.8 mmol/L (3.5-5.1); Sodium 134.0 mmol/L (136-145); Total Protein 6.0 gm/dl (6.0-8.3)
[2024-11-28] MEDS: TIMOLOL MALEATE 0.5% OP SOLN 5 ML BTL OP SCH (08:05)
[2024-11-28] MEDS ORDERED: AMIODARONE IV BOLUS & DRIP IV STA ×2 (08:10→08:48)
[2024-11-28] MEDS ORDERED: 0.2 MICRON FILTER SET 1 EACH IV STA ×2 (08:10→08:48)
[2024-11-28] MEDS ORDERED: STAT IV Infusion **Titration per Protocol STA ×3 (08:10→15:43)
[2024-11-28] MEDS ORDERED: AMIODARONE / D5W 150 MG/100 ML BAG IV STA (08:48)
[2024-11-28] MEDS ORDERED: AMIODARONE / D5W 360 MG/200 ML BAG IV ONE (08:48)
[2024-11-28] MEDS: AMIODARONE / D5W 150 MG/100 ML BAG IV STA (08:54)
[2024-11-28] MEDS: AMIODARONE / D5W 360 MG/200 ML BAG IV ONE (09:23)
[2024-11-28 10:00] LABS: Immature Granulocytes # (auto) 0.02 K/uL (0.01-0.20); Immature Granulocytes % (auto) 0.4 %
[2024-11-28] MEDS: SODIUM CHLORIDE 0.9% 1,000 ML IV SCH ×2 (10:15→15:09)
--- NOTE | 2024-11-28 12:01 | Electrocardiogram Report ---
Test Reason : Blood Pressure : */* mmHG Vent. Rate : 76 BPM Atrial Rate : 76 BPM P-R Int : 136 ms QRS Dur : 84 ms QT Int : 358 ms P-R-T Axes : 31 68 65 degrees QTcB Int : 402 ms Normal sinus rhythm Low voltage QRS Possible Lateral infarct , age undetermined Abnormal ECG When compared with ECG of 11-Aug-2021 12:23, Vent. rate has increased by 25 bpm Borderline criteria for Lateral infarct are now Present T wave amplitude has decreased in Lateral leads Confirmed by Efren Novak ([id number]) on 11/28/2024 12:00:35 PM Referred By: REFERRED SELF Confirmed By: Efren Novak
[2024-11-28] MEDS ORDERED: AMIODARONE / D5W 360 MG/200 ML BAG IV SCH (13:15)
[2024-11-28] MEDS: AZITHROMYCIN 250 MG in DEXTROSE 5% 250 ML IV SCH (13:34)
[2024-11-28] MEDS: AMIODARONE / D5W 360 MG/200 ML BAG IV SCH (14:25)
--- NOTE | 2024-11-28 15:48 | Critical Care Consultation ---
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 She has thrombocytopenia and anemia. Recommendations: 1. Neurologic: Patient is neurologically intact. No acute issues. Continue to follow clinically. She has received oxycodone for pain due to her vertebral fractures. 2. Cardiovascular: Hypotension: Bedside echo performed. Squeeze appears normal although windows were not great. IVC appears adequately dilated without s ignificant respiratory variation suggesting adequate intravascular pressure. Unclear etiology for her atrial fibrillation. Currently in sinus and rate controlled. No indication for anticoagulation currently but if recurrent events become problematic, may need to consider risk-benefit of heparin infusion. Formal echocardiogram will be obtained. Will use phenylephrine as needed to maintain systolic pressure above 90. Check lactate. 3. Pulmonary: No current issues. Continue to follow clinically. 4. GI: Splenomegaly with mild transaminitis. Continue to trend. 5. ID: Babesiosis. ID consultation pending. On atovaquone and azithromycin. Continue for now. 6. Heme-onc: Risk for hemolytic anemia. Check haptoglobin and LDH. Will to continue to trend numbers. 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 Will use SCDs for prophylaxis at this point in time. 7. Renal: At risk for renal insufficiency due to hemolysis. ICU electrolyte replacement protocol. Nash catheter in place. Replace calcium. 8. Endocrine: Check random cortisol. Glycemic control per protocol. Will continue observe in the ICU pending improvement in clinical status. The patient is critically ill with significant possibility of clinical decline. Total of 45 minutes in critical care time exclusive of procedures was spent in evaluation management stabilization of this patient. History of Present Illness Attending Physician: Nidhi Marcus DO History of Present Illness Asked by hospitalist to assist in evaluation management of this patient with hypotension and babesiosis. History is obtained from discussion with the patient as well as review the electronic medical record. The patient is an 83-year-old female without significant past medical history who presented to the emergency room yesterday. She was seen by her primary care provider earlier in the day with complaints of fevers chills aches and dark urine. Peripheral smear had parasitic inclusions in the red cells. In the emergency room she was studied with a CT of the abdomen and pelvis. Splenomegaly was noted. She was mildly leukopenic and thrombocytopenic with an elevated bilirubin. She received Zosyn and azithromycin as well as 2 L of fluids as her presentation blood pressure was 70s. She was admitted to the hospitalist. An infectious disease consult was obtained but is not yet been completed. She was initiated on atovaquone and 8 IV azithromycin. She had low blood pressures throughout the day and the hospitalist were concerned about decompensation show was transferred to the ICU. I assessed the patient immediately on arrival to the ICU. She has a systolic blood pressure about 85 with a heart rate of 67. Of note she was in atrial fibrillation yesterday and placed on amiodarone. Amiodarone has been discontinued. No echocardiogram was obtained. The patient is currently awake alert and conversant. She is without systemic complaints and denies any chest pain or palpitations. No nausea or vomiting. She does not have much of an appetite. She has not noted any skin rashes. No neurological findings. Allergies Allergy/AdvReac Type Severity Reaction Status Date / Time No Known Allergies Allergy Unknown Verified 11/27/24 14:38 Home Medications Medication Instructions Recorded Confirmed Type cholecalciferol (vitamin D3) 50 50 mcg PO DAILY 07/19/23 11/27/24 History mcg (2,000 unit) capsule multivitamin 1 tab PO DAILY 07/19/23 11/27/24 History multivitamin with minerals 1 tab PO DAILY 01/01/24 11/27/24 History (Hair,Skin and Nails tablet) latanoprost 0.005 % eye drops 1 drp ophthalmic (eye) HS 06/13/24 11/27/24 History timolol 0.5 % eye drops 1 drp ophthalmic (eye) QAM 06/13/24 11/27/24 History acetaminophen 500 mg tablet 500 mg PO Q6H PRN Pain 11/27/24 11/27/24 History estradiol 0.01% (0.1 mg/gram) 0.5 g vaginal HS PRN dryness 11/27/24 11/27/24 History vaginal cream pantoprazole 20 mg tablet,delayed 20 mg PO QAM 11/27/24 11/27/24 History release Patient History Medical History Arthritis GERD (gastroesophageal reflux disease) Surgical History H/O wrist surgery H/O colonoscopy History of cataract surgery Hx of left breast biopsy History of bilateral tubal ligation History of open reduction and internal fixation (ORIF) procedure History of cholecystectomy History of appendectomy History of tooth extraction Family History Mother Diabetes Hypertension Sister Diabetes Thyroid cancer Lung cancer Coronary heart disease Brother Hypertension Cancer of kidney Father Myocardial infarction Unknown Atherosclerosis Denies family history of Ovarian cancer Prostate cancer Breast cancer Colorectal cancer Stroke Social History Smoking Status: Never smoker Second Hand Exposure: No; Do You Dip or Chew Tobacco: No; Hx Alcohol Use: No Hx Substance Use: No Preferred Language: Nigerien Communication Ability: Effective Visual Impairment: Limited Hearing Ability: Normal Vending Manager Required: No Beliefs That Will Affect Care: None marital status: / Current Living Situation: Alone current occupational status: retired How many Children do You have: 2 Feels Safe at Home: Yes Childhood Exposure to Second-Hand Smoke: No caffeine: Yes (drinks coffee and soda ) Dental Care, Regularly: Yes Physical Activity Frequency: Daily Seatbelt Use: always Sunscreen Use: No Assistive Devices: Glasses Review of Systems Review of Systems: Please refer to hospitalist notes. No additions or deletions Physical Exam Constitutional: WD/WN, vitals as above Neck: trachea midline, no thyromegaly Respiratory: normal respiratory effort, lungs clear to auscultation Cardiovascular: RRR, no murmur, no edema Gastrointestinal (Abdomen): normal bowel sounds, soft, nontender, no hepatosplenomegaly Musculoskeletal: Extremities: extremities normal to inspection Skin: no rashes, warm and dry Neurologic: Nonfocal exam Lymphatic: no cervical lymphadenopathy Results & Data Results & Data Vital Signs (Past 12 Hours) Vital Signs Temp Pulse Pulse Resp BP BP BP 11/28/24 15:37 37.0 C 11/28/24 15:30 84/53 L 11/28/24 15:27 66 19 11/28/24 15:22 87/49 L 11/28/24 14:59 37.1 C 71 20 85/51 L 11/28/24 14:52 38.7 C H 74 18 68/37 L 71/39 L 11/28/24 14:29 68 11/28/24 14:24 37.9 C H 11/28/24 13:50 37.7 C H 11/28/24 13:22 90/55 L 11/28/24 10:36 36.9 C 92 H 18 90/57 L 11/28/24 10:12 82/52 L 11/28/24 09:16 90/54 L 11/28/24 09:08 82/49 L 11/28/24 08:48 37.7 C H 101 H 16 94/59 L 11/28/24 08:45 96 H 11/28/24 08:45 11/28/24 07:12 113 H 11/28/24 06:35 39.3 C H 104 H 20 90/57 L 11/28/24 06:26 96 H 93/58 L 11/28/24 06:12 102 H 93/61 L 11/28/24 06:11 103 H 95/60 L 11/28/24 06:08 108 H 95/60 L 11/28/24 05:44 103 H 91/63 L 11/28/24 05:33 128 H 91/61 L 11/28/24 05:18 36.7 C 75 18 94/65 L Pulse Ox O2 Del Method O2 Flow Rate 11/28/24 15:37 11/28/24 15:30 11/28/24 15:27 93 Nasal Cannula 4 11/28/24 15:22 11/28/24 14:59 94 Nasal Cannula 11/28/24 14:52 93 Nasal Cannula 2 11/28/24 14:29 11/28/24 14:24 11/28/24 13:50 11/28/24 13:22 11/28/24 10:36 95 Nasal Cannula 2 11/28/24 10:12 11/28/24 09:16 11/28/24 09:08 11/28/24 08:48 93 Nasal Cannula 2 11/28/24 08:45 11/28/24 08:45 Nasal Cannula 2 11/28/24 07:12 11/28/24 06:35 93 Nasal Cannula 2 11/28/24 06:26 11/28/24 06:12 11/28/24 06:11 11/28/24 06:08 11/28/24 05:44 11/28/24 05:33 11/28/24 05:18 97 Room Air Critical Care Results & Data Vital Signs (Past 12 Hours) Vital Signs Temp Pulse Pulse Resp BP BP BP 11/28/24 15:37 37.0 C 11/28/24 15:30 84/53 L 11/28/24 15:27 66 19 11/28/24 15:22 87/49 L 11/28/24 14:59 37.1 C 71 20 85/51 L 11/28/24 14:52 38.7 C H 74 18 68/37 L 71/39 L 11/28/24 14:29 68 11/28/24 14:24 37.9 C H 11/28/24 13:50 37.7 C H 11/28/24 13:22 90/55 L 11/28/24 10:36 36.9 C 92 H 18 90/57 L 11/28/24 10:12 82/52 L 11/28/24 09:16 90/54 L 11/28/24 09:08 82/49 L 11/28/24 08:48 37.7 C H 101 H 16 94/59 L 11/28/24 08:45 96 H 11/28/24 08:45 11/28/24 07:12 113 H 11/28/24 06:35 39.3 C H 104 H 20 90/57 L 11/28/24 06:26 96 H 93/58 L 11/28/24 06:12 102 H 93/61 L 11/28/24 06:11 103 H 95/60 L 11/28/24 06:08 108 H 95/60 L 11/28/24 05:44 103 H 91/63 L 11/28/24 05:33 128 H 91/61 L 11/28/24 05:18 36.7 C 75 18 94/65 L Pulse Ox O2 Del Method O2 Flow Rate 11/28/24 15:37 11/28/24 15:30 11/28/24 15:27 93 Nasal Cannula 4 11/28/24 15:22 11/28/24 14:59 94 Nasal Cannula 11/28/24 14:52 93 Nasal Cannula 2 11/28/24 14:29 11/28/24 14:24 11/28/24 13:50 11/28/24 13:22 11/28/24 10:36 95 Nasal Cannula 2 11/28/24 10:12 11/28/24 09:16 11/28/24 09:08 11/28/24 08:48 93 Nasal Cannula 2 11/28/24 08:45 11/28/24 08:45 Nasal Cannula 2 11/28/24 07:12 11/28/24 06:35 93 Nasal Cannula 2 11/28/24 06:26 11/28/24 06:12 11/28/24 06:11 11/28/24 06:08 11/28/24 05:44 11/28/24 05:33 11/28/24 05:18 97 Room Air Lab & Micro Results (Past 24 Hours) RBC 3.46 M/uL (4.20-5.40) L 11/28/24 WBC 4.77 K/ul (4.8-10.8) L 11/28/24 Hgb 10.5 g/dl (12.0-16.0) L 11/28/24 Hct 30.7 % (37.0-47.0) L 11/28/24 MCV 88.7 fL (80.0-100.0) 11/28/24 MCH 30.3 pg (25.0-34.0) 11/28/24 MCHC 34.2 g/dL (32.0-36.0) 11/28/24 RDW Standard Deviation 43.6 fL (36.4-46.3) 11/28/24 RDW Coefficient of Variation 13.4 % (11.5-14.5) 11/28/24 Plt Count 56 K/uL (130-400) L 11/28/24 MPV 12.8 fL (9.4-12.4) H 11/28/24 Neutrophils (%) (Auto) 55.6 % 11/28/24 Lymphocytes (%) (Auto) 27.9 % 11/28/24 Monocytes # (Auto) 0.76 K/uL (0.11-0.59) H 11/28/24 Eosinophils # (Auto) 0.00 K/uL (0.00-0.50) 11/28/24 Immature Granulocyte % (Auto) 0.4 % 11/28/24 Neutrophils # (Auto) 2.65 K/uL (1.40-6.50) 11/28/24 Lymphocytes # (Auto) 1.33 K/uL (1.20-3.40) 11/28/24 Monocytes # (Auto) 0.76 K/uL (0.11-0.59) H 11/28/24 Eosinophils # (Auto) 0.00 K/uL (0.00-0.50) 11/28/24 Basophils # (Auto) 0.01 K/uL (0.00-0.20) 11/28/24 Immature Granulocyte # (Auto) 0.02 K/uL (0.01-0.20) 5 Na 134 mmol/L (136-145) L 11/28/24 K 3.8 mmol/L (3.5-5.1) 11/28/24 Cl 105 mmol/L (98-107) 11/28/24 CO2 23 mmol/L (21-32) 11/28/24 Anion Gap 6 (3-11) 11/28/24 BUN 15 mg/dl (6-23) 11/28/24 Creatinine 0.64 mg/dl (0.6-1.2) 11/28/24 BUN/Creatinine Ratio 23.4 (10-20) H 11/28/24 Glu 98 mg/dl (70-99(Fasting)) 11/28/24 Ca 7.8 mg/dl (8.6-10.3) L 11/28/24 Total Bilirubin 1.6 mg/dl (0.2-1.0) H 11/28/24 AST 63 U/L (13-39) H 11/28/24 ALT 36 U/L (7-52) 11/28/24 Alkaline Phosphatase 123 U/L (34-104) H 11/28/24 TP 6.0 gm/dl (6.0-8.3) 11/28/24 Albumin 3.0 gm/dl (3.4-5.0) L 11/28/24 Globulin 3.0 gm/dl (2.5-4.0) 11/28/24 Albumin/Globulin Ratio 1.0 (0.9-2) 06/27/25 Mg 1.9 mg/dl (1.7-2.4) 11/28/24 05:48 Calcium Level 7.8 mg/dl (8.6-10.3) L 11/28/24 05:48 Microbiology 11/27/24 12:03 Aerobic Blood Culture - Preliminary Blood No growth in Aerobic bottle after 24 hours. Anaerobic Blood Culture - Preliminary No growth in Anaerobic bottle after 24 hours. 11/27/24 11:48 Aerobic Blood Culture - Preliminary Blood No growth in Aerobic bottle after 24 hours. Anaerobic Blood Culture - Preliminary No growth in Anaerobic bottle after 24 hours. I & O Totals 24 Hours 11/27/24 11/28/24 11/29/24 06:59 06:59 06:59 Intake Total 4438.233 / 4438.233 2223.092 / 2223.092 Balance 4438.233 / 4438.233 2223.092 / 2223.092 Cumulative 11/27/24 11:24 thru 11/28/24 15:37 Intake Total 6661.325 Balance 6661.325 RT Ventilator Mngmt (Last Documented) Ventilator Ordered Settings Respiratory Rate 19 11/28/24 15:27 Ventilator - PT Measurements Respiratory Rate 19 Coding Level of Care Code 37414 CRITICAL CARE 1ST 30-74M Diagnoses Babesiosis B60.00 Hyponatremia E87.1 Hypotension I95.9 Compression fracture of T11 vertebra S22.080A Anemia D64.9 Thrombocytopenia D69.6
--- NOTE | 2024-11-28 15:59 | Infectious Disease Consult ---
Date of Consultation November 28, 2024 Assessment & Plan (1) Thrombocytopenia: (2) Babesiosis: (3) Sepsis: (4) Compression fracture of T11 vertebra: Plan ID Problem List: # Babesiosis # Fevers # Thrombocytopenia # Recent fall 3 weeks prior, T11/L2 compression fractures Impression: Tere Lutz is an 83-year-old woman with history of T11 and L2 compression fracture, glaucoma, TMJ, IBS, who presents to [facility] ED on 11/27/24 for weakness and fevers up to 104F, found to have a positive Babesia smear. ID is consulted for babesiosis. The patient slipped and fell on her back 3 weeks ago, resulting in T11 and L2 compression fractures and she has been wearing a brace. Prior her fall, she has been healthy, independent in ADLs, and walks 10k steps a day. She has been feeling unwell since 11/23, and experiencing dark urine, chills, and generalized body aches. Starting on Sunday 11/26, her daughter measured her temperature and noted that she was having high fevers up to 104F, that would then mayito by the evening. She has continued to have fevers and chills since that time, as well as weakness making it hard for her to get out of bed. She denied cough/congestion/rhinorrhea, headaches, vision changes, chest pain, shortness of breath, n/v/d, dysuria. In the ED, Tmax on 11/27 of 39C, hypotensive with SBPs to 70s that improved with IV fluids, WBC 4.3 Hgb plt 46 AST 78 ALT 48 tbili 2.3 procal 3.6. UA neg for LE/nitrites (no microscopy done). 11/27 CXR without acute findings. 11/27 CT A/P showing T11 and L2 compression fractures, increased spleen size, small endometrial polyp/mass, no other acute findings. 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 She was given pip-tazo in the ED which was discontinued. She was then treated with azithromycin and atovaquone. On 11/28, Tmax 37.9, WBC 4.77 plt 56, AST 63 ALT 36 alk phos 123 tbili 1.6 LDH 443. At the time of evaluation, her daughter is at bedside. She is still ex periencing intermittent fevers and chills in cycles. She has generalized weakness and body aches, with pain especially in her thighs and hip muscles. She does not recall any tick bites, but [place] and frequently walks outdoors and does gardening/yardwork. She notes there are often deer in her yard. Discussion The patient presents with high fevers and chills, found to have thrombocytopenia, elevated transaminases, CT A/P with increased spleen, and found to have a positive blood smear for Babesia. Lyme screen negative. Blood smear without e/o Anaplasma but Anaplasma PCR pending. I discussed with Dr. Kincaid of the primary team on 11/28 the lab is not able to discern parasitemia % from 11/27 (yesterdays) smear given that it has to be done within 1h of the blood draw. She is due for repeat smear today and tomorrow (and subsequently if needed) with parasitemia % requested. She is not known to be immunocompromised but given her older age she is at higher risk for severe disease. Based on % parasitemia and clinical symptoms, can risk-stratify to mild-moderate vs. severe disease, which has different treatment dosing and monitoring parameters, as per below; severe disease also has a much higher risk of relapse. Reassuringly, she has mildly elevated LFTs which are already starting to downtrend, normal renal function, and normal mental status. She is starting to have worsening hypoxemia (2L increased to 4L on 11/28) and would monitor closely given possible progression to ARDS. Can continue azithromycin and atovaquone, with the azithromycin currently dosed for mild-moderate disease.. QTc 431 on 11/28. If % parasitemia and clinical improvement are consistent with mild-moderate disease, then anticipate completing a 10-day course of treatment. If % parasitemia >=4% or clinical worsening, would increase azithromycin to 500 mg IV daily and low threshold to add doxycycline while awaiting Anaplasma PCR, and will need more intensive monitoring of blood smears. Recommendations: - Continue treatment with azithromycin (500 mg on day 1, followed by 250 mg PO daily) and atovaquone 750 mg PO q12h. - If % parasitemia and clinical improvement are consistent with mild-moderate disease, then anticipate changing azithromycin to PO and completing a 10-day course of treatment - If clinical worsening or lack of clinical improvement, low threshold to add PO doxycycline in case of concurrent anaplasmosis - Obtain blood smear for % parasitemia on 11/28 and 11/29 * If % parasitemia <4%, then anticipate trending daily blood smears and % parasitemia until the patient has full improvement in clinical symptoms * If % parasitemia >=4%, clinical worsening, or e/o end-organ damage, would increase azithromycin to 500 mg IV daily, then anticipate trending daily blood smears and % parasitemia until % falls <4% and full improvement in clinical symptoms, followed by blood smears and % parasitemia every 2-3 days until undetectable. - Continue to trend CBC w/ diff and CMP - F/u 11/27 Babesia PCR, Anaplasma DNA PCR - F/u 11/27 BCx until finalized to ensure remains negative - Per primary team, can repeat Lyme screen in 2-4 weeks - Ensure close follow-up with PCP ID will continue to follow. Please contact us with any questions. Over the weekend, the on-call ID provider can be reached at [phone] for urgent/time-sensitive questions. Dr. Luly Mahmood will resume care of the ID service on Sunday. Priya Lincoln MD, MHS Infectious Diseases [facility] ID Connect direct line: [phone] Consultation Information Consultation was provided via telemedicine using two-way real-time interactive telecommunication between the patient and the telemedicine provider. For the duration of the visit, the provider was performing the assessment from a different facility than the patient. This includesuse of bluetooth stethoscope forauscultationperformed by the telepresenter that the telemedicine provider can hear if described in the physical exam. Mouthpiece Maker contact information: Please call [facility] Connect Call Center [phone]. (Phone Number For Physician Use Only) After establishing a telemedicine visit, patient was: Patient was verified with two unique identifiers, Patient/authorized rep acknowledged consent and understanding and Gave permission to continue telehealth session Time Spent with Patient: Initial => 75 min History of Present Illness Reason for Consultation: Babesiosis Attending Physician: Nidhi Marcus, DO History of Present Illness Tere Lutz is an 83-year-old woman with history of T11 and L2 compression fracture, glaucoma, TMJ, IBS, who presents to [facility] ED on 11/27/24 for weakness and fevers up to 104F, found to have a positive Babesia smear. ID is consulted for babesiosis. The patient slipped and fell on her back 3 weeks ago, resulting in T11 and L2 compression fractures and she has been wearing a brace. Prior her fall, she has been healthy, independent in ADLs, and walks 10k steps a day. She has been feeling unwell since 11/23, and experiencing dark urine, chills, and generalized body aches. Starting on Sunday 11/26, her daughter measured her temperature and noted that she was having high fevers up to 104F, that would then mayito by the evening. She has continued to have fevers and chills since that time, as well as weakness making it hard for her to get out of bed. She denied cough/congestion/rhinorrhea, headaches, vision changes, chest pain, shortness of breath, n/v/d, dysuria. In the ED, Tmax on 11/27 of 39C, hypotensive with SBPs to 70s that improved with IV fluids, WBC 4.3 Hgb plt 46 AST 78 ALT 48 tbili 2.3 procal 3.6. UA neg for LE/nitrites (no microscopy done). 11/27 CXR without acute findings. 11/27 CT A/P showing T11 and L2 compression fractures, increased spleen size, small endometrial polyp/mass, no other acute findings. 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 She was given pip-tazo in the ED which was discontinued. She was then treated with azithromycin and atovaquone. On 11/28, Tmax 37.9, WBC 4.77 plt 56, AST 63 ALT 36 alk phos 123 tbili 1.6 LDH 443. At the time of evaluation, her daughter is at bedside. She is still experiencing intermittent fevers and chills in cycles. She has generalized we akness and body aches, with pain especially in her thighs and hip muscles. She does not recall any tick bites, but [place] area and frequently walks outdoors and does gardening/yardwork. She notes there are often deer in her yard. Allergies Allergy/AdvReac Type Severity Reaction Status Date / Time No Known Allergies Allergy Unknown Verified 11/27/24 14:38 Home Medications Medication Instructions Recorded Confirmed Type cholecalciferol (vitamin D3) 50 50 mcg PO DAILY 07/19/23 11/27/24 History mcg (2,000 unit) capsule multivitamin 1 tab PO DAILY 07/19/23 11/27/24 History multivitamin with minerals 1 tab PO DAILY 01/01/24 11/27/24 History (Hair,Skin and Nails tablet) latanoprost 0.005 % eye drops 1 drp ophthalmic (eye) HS 06/13/24 11/27/24 History timolol 0.5 % eye drops 1 drp ophthalmic (eye) QAM 06/13/24 11/27/24 History acetaminophen 500 mg tablet 500 mg PO Q6H PRN Pain 11/27/24 11/27/24 History estradiol 0.01% (0.1 mg/gram) 0.5 g vaginal HS PRN dryness 11/27/24 11/27/24 History vaginal cream pantoprazole 20 mg tablet,delayed 20 mg PO QAM 11/27/24 11/27/24 History release Patient History Medical History Arthritis GERD (gastroesophageal reflux disease) Surgical History H/O wrist surgery H/O colonoscopy History of cataract surgery Hx of left breast biopsy History of bilateral tubal ligation History of open reduction and internal fixation (ORIF) procedure History of cholecystectomy History of appendectomy History of tooth extraction Family History Mother Diabetes Hypertension Sister Diabetes Thyroid cancer Lung cancer Coronary heart disease Brother Hypertension Cancer of kidney Father Myocardial infarction Unknown Atherosclerosis Denies family history of Ovarian cancer Prostate cancer Breast cancer Colorectal cancer Stroke Social History Smoking Status: Never smoker Second Hand Exposure: No; Do You Dip or Chew Tobacco: No; Hx Alcohol Use: No Hx Substance Use: No Preferred Language: Trinidadian Communication Ability: Effective Visual Impairment: Limited Hearing Ability: Normal Winch Truck Operator Required: No Beliefs That Will Affect Care: None marital status: / Current Living Situation: Alone current occupational status: retired How many Children do You have: 2 Feels Safe at Home: Yes Childhood Exposure to Second-Hand Smoke: No caffeine: Yes (drinks coffee and soda ) Dental Care, Regularly: Yes Physical Activity Frequency: Daily Seatbelt Use: always Sunscreen Use: No Assistive Devices: None Physical Exam Physical Exam: Exam obtained with assistance of an in-person telepresenter General: Uncomfortable-appearing, wrapped in a blanket, no acute distress HEENT: Conjunctivae non-injected, sclerae anicteric, MMM, OP clear. Resp: Respirations nonlabored. Abd: Soft, nontender, nondistended. Ext: No joint warmth or effusions noted. Skin: No rashes or lesions. Neuro: Alert & interactive. Grossly non-focal. Psych: Pleasant, appropriate. Results & Data Vital Signs (Past 12 Hours) Vital Signs Temp Pulse Pulse Resp BP BP BP 11/28/24 15:37 37.0 C 11/28/24 15:30 84/53 L 11/28/24 15:27 66 19 11/28/24 15:22 87/49 L 11/28/24 14:59 37.1 C 71 20 85/51 L 11/28/24 14:52 38.7 C H 74 18 68/37 L 71/39 L 11/28/24 14:29 68 11/28/24 14:24 37.9 C H 11/28/24 13:50 37.7 C H 11/28/24 13:22 90/55 L 11/28/24 10:36 36.9 C 92 H 18 90/57 L 11/28/24 10:12 82/52 L 11/28/24 09:16 90/54 L 11/28/24 09:08 82/49 L 11/28/24 08:48 37.7 C H 101 H 16 94/59 L 11/28/24 08:45 96 H 11/28/24 08:45 11/28/24 07:12 113 H 11/28/24 06:35 39.3 C H 104 H 20 90/57 L 11/28/24 06:26 96 H 93/58 L 11/28/24 06:12 102 H 93/61 L 11/28/24 06:11 103 H 95/60 L 11/28/24 06:08 108 H 95/60 L 11/28/24 05:44 103 H 91/63 L 11/28/24 05:33 128 H 91/61 L 11/28/24 05:18 36.7 C 75 18 94/65 L Pulse Ox O2 Del Method O2 Flow Rate 11/28/24 15:37 11/28/24 15:30 11/28/24 15:27 93 Nasal Cannula 4 11/28/24 15:22 11/28/24 14:59 94 Nasal Cannula 11/28/24 14:52 93 Nasal Cannula 2 11/28/24 14:29 11/28/24 14:24 11/28/24 13:50 11/28/24 13:22 11/28/24 10:36 95 Nasal Cannula 2 11/28/24 10:12 11/28/24 09:16 11/28/24 09:08 11/28/24 08:48 93 Nasal Cannula 2 11/28/24 08:45 11/28/24 08:45 Nasal Cannula 2 11/28/24 07:12 11/28/24 06:35 93 Nasal Cannula 2 11/28/24 06:26 11/28/24 06:12 11/28/24 06:11 11/28/24 06:08 11/28/24 05:44 11/28/24 05:33 11/28/24 05:18 97 Room Air Diagnostic Findings Micro Data: 11/27 BCx x2: PEND 11/27 Anaplasma DNA: PEND 11/27 Lyme screen: neg; IgG neg and IgM neg 11/27 Babesia PCR: PEND 11/27 Babesia smear: positive for inclusions (negative for intracytoplasmic neutrophilic inclusions to suggest Anaplasmosis) Antibiotic Summary: azithromycin (11/27 present) atovaquone (11/27 present) prior pip-tazo (11/27) (3) Sepsis Sepsis acute organ dysfunction status: unspecified Sepsis type: sepsis due to unspecified organism Qualified Code(s): A41.9 - Sepsis, unspecified organism
[2024-11-28] MEDS: PHENYLEPHRINE/NSS 25 MG/250 ML BAG IV SCH (16:04)
[2024-11-28] MEDS: CALCIUM GLUCONATE 1,000 MG/60 ML BAG IV SCH (16:16)
[2024-11-28] MEDS: ALBUMIN 25% 25 GM/100 ML VIAL IV ONE (16:16)
[2024-11-28 16:23] LABS: Base Excess VBG -3.8 mEq/L; HCO3 VBG 21 mmol/L; Oxygen Saturation VBG 62.6 %; PCO2 VBG 35 mmHg (38-50); PO2 VBG 34 mmHg; pH VBG 7.38 (7.36-7.41)
[2024-11-28] MEDS: ICU ELECTROLYTE REPLACEMENT PROTOCOL SCH (17:29)
--- NOTE | 2024-11-28 17:38 | Hospitalist Progress Note ---
Date of Service November 28, 2024 Assessment & Plan (1) Thrombocytopenia: (2) Acute hypotension: (3) Acute hyponatremia: (4) Babesiosis: (5) Transaminitis: (6) Hyponatremia: (7) Hypotension: Plan Patient is an 83-year-old female with past medical history of GERD, she is otherwise healthy and walks 10,000 steps per day. Patient presented after referral by PCP for fevers, chills, body aches, dark urine since Sunday. 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 Patient also noted that she slipped and fell onto her back approximately 3 weeks ago and was found to have a T11 and L2 compression fracture which she has been following with orthospine for. #Atrial Fibrillation -Went to Afib at 5 AM. - Coverted back to NSR S/P metroprolol and Amiodarone -Ordered TTE #Babesiosis #Tick borne illness -Test positive for Babesia - On Atovaquone and Azithromycin -Anaplasma and Lyme negative. However it doesnot rule out the presence of disease -ID on board. -Parasitemia percent: 2-4.9% -Will monitor parasite percent daily #Hypotension -BP drop to 78/50 - Transferred to ICU. -BP improved to 123/71 S/P Phenylephrine #Hyponatremia -Sodium: 129>134 -Monitor BMP #Transaminitis -Likely 2/2 to Babesiosis -liver enzymes improving -Monitor CMP daily #Fall/T11 compression fracture/L2 compression fracture - - S/p mechanical fall approximately 3 weeks ago, unrelated to above -Patient already following with orthospine. Was treating with Tylenol scheduled, tylenol maximum dose per day-2000mg Continue back brace PT/OT evaluation Continue to follow with orthospine in outpatient setting #Endometrial polyp/mass noted on AP CT Follow-up with outpatient [employer] #GERD continue PPI VTE ppx: SCDs, avoid chemical PPx with thrombocytopenia, encourage ambulation as tolerated Dispo: ICU Admission and Anticipated Discharge Date Admission Date: November 27, 2024 Supervising Physician Co-Signing Physician Notes I personally examined the patient and verified white points of history and exam, discussed case, and agree with decision making and plan documented by Dr. Kincaid. Patient with hypotension in setting of babesiosis and transferred to critical care. Patient converted back to NSR. Vasopressor required for short time. ID consulted. On azithromycin and atovaquone. Labs significant for leukopenia, anemia, thrombocytopenia, hyponatremia, and transaminitis. Subjective Went to Afib at 5 AM this morning. Converted back to sinus rhythm at 1 PM s/p Metoprolol and Amiodarone. BP down to 78/50. Not resolved with fluids. Transferred to ICU for pressors. Patient feeling weak, has chills . No N/V, abdominal pain Review of Systems Review of Systems: As per HPI Physical Exam Physical Exam: Constitutional: Well appearing, No acute distress, PILCCOD: Negative HEENT: Atraumatic, Normocephalic, No conjunctival injection CVS: S1 S2 no murmur, Regular Rhythm, no LE edema Respiratory: BL equal air entry with NVBS. No rhonchi, wheezes, or crackles. No increased work of breathing GI: Soft, Nondistended, Nontender, Normal Bowel sounds + MSK: No gross deformities noted Skin: Warm, Dry, No rashes Neuro: Alert, Oriented to TPP, No Focal deficit Psych: Mood and Affect congruent, Cooperative on exam Results & Data Results & Data Vital Signs (Past 12 Hours) Vital Signs Temp Pulse Pulse Resp BP BP Pulse Ox 11/28/24 07:12 113 H 11/28/24 06:35 39.3 C H 104 H 20 90/57 L 93 11/28/24 06:26 96 H 93/58 L 11/28/24 06:12 102 H 93/61 L 11/28/24 06:11 103 H 95/60 L 11/28/24 06:08 108 H 95/60 L 11/28/24 05:44 103 H 91/63 L 11/28/24 05:33 128 H 91/61 L 11/28/24 05:18 36.7 C 75 18 94/65 L 97 11/27/24 23:43 39 C H 84 14 94/63 L 91 11/27/24 21:45 94 H 11/27/24 21:06 11/27/24 20:00 37.8 C H 89 14 97/68 L 91 O2 Del Method O2 Flow Rate 11/28/24 07:12 11/28/24 06:35 Nasal Cannula 2 11/28/24 06:26 11/28/24 06:12 11/28/24 06:11 11/28/24 06:08 11/28/24 05:44 11/28/24 05:33 11/28/24 05:18 Room Air 11/27/24 23:43 Room Air 11/27/24 21:45 11/27/24 21:06 Room Air 11/27/24 20:00 Room Air
--- NOTE | 2024-11-28 19:55 | Communication Note ---
Date of Service: November 28, 2024 Patient seen on evening rounds. Events of today noted. Not currently requiring vasopressors. Fever is up to 40.3C. She is tachypneic and uncomfortable, comp laining of severe chills and leg cramping. 1g APAP now and increase dose to 4g QD allowance Add Flexeril for leg cramps x1 dose and assess response Continue supportive care as ordered Coding Level of Care Code None
[2024-11-28] MEDS: CYCLOBENZAPRINE HCL 5 MG TAB PO STA (20:05)
[2024-11-28] MEDS: ALBUTEROL 0.083% NEBU SOLN 3 ML VIAL NEB PRN (23:29)
[2024-11-29] MEDS ORDERED: ACETAMINOPHEN 325 MG TAB PO PRN (02:00)
[2024-11-29] MEDS: ACETAMINOPHEN 500 MG TAB PO PRN (02:08)
[2024-11-29 05:02] LABS: Hematocrit (blood only) 27.5 % (37.0-47.0); Hemoglobin 9.3 g/dl (12.0-16.0); Mean Corpuscular Hemoglobin 30.2 pg (25.0-34.0); Mean Corpuscular Volume 89.3 fL (80.0-100.0); Platelet Count 57 K/uL (130-400); RDW Standard Deviation 45.4 fL (36.4-46.3); Red Blood Count 3.08 M/uL (4.20-5.40); White Blood Count 5.62 K/ul (4.8-10.8)
[2024-11-29 05:17] LABS: Alanine Aminotransferase 39.0 U/L (7-52); Albumin Globulin Ratio 1.0 (0.9-2); Alkaline Phosphatase 106.0 U/L (34-104); Anion Gap 5.0 (3-11); Bilirubin,Total 1.8 mg/dl (0.2-1.0); Blood Urea Nitrogen 13.0 mg/dl (6-23); Calcium 8.1 mg/dl (8.6-10.3); Carbon Dioxide 24.0 mmol/L (21-32); Chloride 105.0 mmol/L (98-107); Creatinine Clr Calc Pharmacy 48.1 ml/min; Globulin 3.0 gm/dl (2.5-4.0); Glucose 106.0 mg/dl (70-99(Fasting)); Magnesium 2.0 mg/dl (1.7-2.4); Potassium 3.8 mmol/L (3.5-5.1); Sodium 134.0 mmol/L (136-145); Total Protein 5.9 gm/dl (6.0-8.3)
[2024-11-29] MEDS: POTASSIUM CHLORIDE CRTAB 20 MEQ TABCR PO SCH (06:15)
[2024-11-29] MEDS: MAGNESIUM OXIDE 400 MG TAB PO SCH (06:16)
--- NOTE | 2024-11-29 07:00 | Electrocardiogram Report ---
Test Reason : Blood Pressure : */* mmHG Vent. Rate : 104 BPM Atrial Rate : 96 BPM P-R Int : * ms QRS Dur : 84 ms QT Int : 328 ms P-R-T Axes : * 39 17 degrees QTcB Int : 431 ms Atrial fibrillation with rapid ventricular response with premature ventricular or aberrantly conducte d complexes Low voltage QRS Nonspecific ST abnormality Abnormal ECG When compared with ECG of 28-Nov-2024 05:25, (unconfirmed) No significant change was found Confirmed by Frederick Holloway ([id number]) on 11/29/2024 7:00:07 AM Referred By: REFERRED SELF Confirmed By: Frederick Holloway
--- NOTE | 2024-11-29 07:01 | Electrocardiogram Report ---
Test Reason : Blood Pressure : */* mmHG Vent. Rate : 113 BPM Atrial Rate : 208 BPM P-R Int : * ms QRS Dur : 82 ms QT Int : 308 ms P-R-T Axes : * 38 -7 degrees QTcB Int : 422 ms Atrial fibrillation with rapid ventricular response with premature ventricular or aberrantly conducte d complexes Low voltage QRS Nonspecific ST and T wave abnormality Abnormal ECG When compared with ECG of 27-Nov-2024 11:34, Atrial fibrillation has replaced Sinus rhythm Vent. rate has increased by 37 bpm Borderline criteria for Lateral infarct are no longer Present Nonspecific T wave abnormality now evident in Inferior leads Confirmed by Frederick Holloway ([id number]) on 11/29/2024 7:00:48 AM Referred By: REFERRED SELF Confirmed By: Frederick Holloway
[2024-11-29 07:17] LABS: Immature Granulocytes # (auto) 0.03 K/uL (0.01-0.20); Immature Granulocytes % (auto) 0.5 %; Polychromasia 1+
--- NOTE | 2024-11-29 09:23 | Critical Care Progress Note ---
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 She has thrombocytopenia and anemia. Recommendations: 1. Neurologic: Patient is neurologically intact. No acute issues. Continue to follow clinically. She has received oxycodone for pain due to her vertebral fractures. 2. Cardiovascular: Hypotension: Appears resolved. Lactate was normal. Will try and maintain systolic blood pressure of 90 or greater. Patient has no evidence of endorgan underperfusion. Will place on a trial of midodrine to augment systolic pressure but hopefully can maintain off of vasopressor agents. Appears adequately volume resuscitated currently. 3. Pulmonary: No current issues. Continue to follow clinically. 4. GI: Transaminitis improving. Total bili continues to slightly increase, not surprising, likely secondary to some degree of hemolysis 5. ID: Babesiosis. ID consultation pending. On atovaquone and azithromycin. Continue for now. 6. Heme-onc: Risk for hemolytic anemia. Haptoglobin pending but LDH elevated and likely some degree of hemolysis. Will use SCDs for prophylaxis at this point in time. 7. Renal: At risk for renal insufficiency due to hemolysis. ICU electrolyte replacement protocol. Nash catheter in place. Replace calcium. 8. Endocrine: Random cortisol 16 but without need for vasopressors would not place on steroids for relative adrenal insufficiency. Patient appears to be responding appropriately. She again is demonstrating adequate perfusion. Anticipate she can likely transfer back out of the ICU later today if hemodynamic stability is maintained. Critical care services will sign off when she leaves the ICU. Admission and Anticipated Discharge Date Admission Date: November 27, 2024 Subjective Patient seen and examined. EMR reviewed. Discussed with bedside critical care nurse and overnight critical care VICTORINA. The patient reports that she is feeling better this morning. Pressors have been off since early this morning. She denies any chest pain or palpitations. No nausea or vomiting. She is not experiencing any dizziness or lightheadedness. She does not have much of an appetite. No other complaints this morning Review of Systems Review of Systems: All systems reviewed & are unremarkable except as noted in Subjective Physical Exam Constitutional: WD/WN, vitals as above Neck: trachea midline, no thyromegaly Respiratory: normal respiratory effort, lungs clear to auscultation Cardiovascular: RRR, no murmur, no edema Gastrointestinal (Abdomen): normal bowel sounds, soft, nontender, no hepatosplenomegaly Musculoskeletal: Extremities: extremities normal to inspection Skin: no rashes, warm and dry Lymphatic: no cervical lymphadenopathy Results & Data Results & Data Vital Signs (Past 12 Hours) Vital Signs Temp Pulse Pulse Resp BP Pulse Ox O2 Del Method 11/29/24 08:55 37.7 C H 11/29/24 08:30 39.4 C H 79 32 H 99/78 L 86 L 11/29/24 08:12 39.1 C H 63 26 H 103/73 95 11/29/24 07:30 38.6 C H 67 26 H 105/65 94 11/29/24 07:00 38.5 C H 74 33 H 111/69 84 L 11/29/24 06:03 36.5 C 60 22 95 11/29/24 06:00 137/69 11/29/24 05:30 59 L 20 120/76 96 11/29/24 05:03 59 L 21 95 11/29/24 05:00 115/72 11/29/24 04:33 37.8 C H 58 L 20 95 11/29/24 04:30 121/75 11/29/24 04:27 37.8 C H 59 L 20 95 11/29/24 04:00 58 L 19 95 11/29/24 04:00 115/67 11/29/24 03:33 38.1 C H 60 20 95 11/29/24 03:30 114/66 11/29/24 03:24 38.1 C H 62 20 94 11/29/24 03:00 38.2 C H 62 19 94 11/29/24 03:00 97/60 L 11/29/24 02:30 103/63 11/29/24 02:30 38.2 C H 59 L 22 86 L 11/29/24 02:06 38.0 C H 56 L 19 95 11/29/24 02:00 130/79 11/29/24 01:39 37.8 C H 56 L 19 95 11/29/24 01:30 112/72 11/29/24 01:06 37.6 C H 60 19 94 11/29/24 00:30 106/65 11/29/24 00:30 106/65 11/29/24 00:30 37.5 C 60 18 95 11/29/24 00:03 37.7 C H 62 18 96 11/29/24 00:00 104/67 11/28/24 23:59 63 11/28/24 23:54 37.7 C H 61 18 95 11/28/24 23:30 123/72 11/28/24 23:30 59 L 19 98 Nasal Cannula 11/28/24 23:27 37.8 C H 62 20 96 11/28/24 23:00 133/75 11/28/24 22:36 38 C H 59 L 18 96 11/28/24 22:30 124/72 11/28/24 22:27 38 C H 59 L 19 97 11/28/24 22:00 122/74 11/28/24 22:00 62 21 96 11/28/24 21:45 112/74 11/28/24 21:45 63 20 95 11/28/24 21:42 38.2 C H 65 18 95 11/28/24 21:30 107/71 O2 Flow Rate 11/29/24 08:55 11/29/24 08:30 11/29/24 08:12 11/29/24 07:30 11/29/24 07:00 11/29/24 06:03 11/29/24 06:00 11/29/24 05:30 3 11/29/24 05:03 3 11/29/24 05:00 3 11/29/24 04:33 11/29/24 04:30 11/29/24 04:27 11/29/24 04:00 11/29/24 04:00 11/29/24 03:33 11/29/24 03:30 11/29/24 03:24 11/29/24 03:00 11/29/24 03:00 11/29/24 02:30 11/29/24 02:30 11/29/24 02:06 11/29/24 02:00 11/29/24 01:39 11/29/24 01:30 11/29/24 01:06 11/29/24 00:30 11/29/24 00:30 11/29/24 00:30 11/29/24 00:03 11/29/24 00:00 11/28/24 23:59 11/28/24 23:54 11/28/24 23:30 11/28/24 23:30 2 11/28/24 23:27 11/28/24 23:00 11/28/24 22:36 11/28/24 22:30 11/28/24 22:27 11/28/24 22:00 11/28/24 22:00 11/28/24 21:45 11/28/24 21:45 11/28/24 21:42 11/28/24 21:30 Laboratory Results LDH 443 Random cortisol 18 Haptoglobin pending Lactate normal at 1.1 Critical Care Results & Data Vital Signs (Past 12 Hours) Vital Signs Temp Pulse Pulse Resp BP Pulse Ox O2 Del Method 11/29/24 08:55 37.7 C H 11/29/24 08:30 39.4 C H 79 32 H 99/78 L 86 L 11/29/24 08:12 39.1 C H 63 26 H 103/73 95 11/29/24 07:30 38.6 C H 67 26 H 105/65 94 11/29/24 07:00 38.5 C H 74 33 H 111/69 84 L 11/29/24 06:03 36.5 C 60 22 95 11/29/24 06:00 137/69 11/29/24 05:30 59 L 20 120/76 96 11/29/24 05:03 59 L 21 95 11/29/24 05:00 115/72 11/29/24 04:33 37.8 C H 58 L 20 95 11/29/24 04:30 121/75 11/29/24 04:27 37.8 C H 59 L 20 95 11/29/24 04:00 58 L 19 95 11/29/24 04:00 115/67 11/29/24 03:33 38.1 C H 60 20 95 11/29/24 03:30 114/66 11/29/24 03:24 38.1 C H 62 20 94 11/29/24 03:00 38.2 C H 62 19 94 11/29/24 03:00 97/60 L 11/29/24 02:30 103/63 11/29/24 02:30 38.2 C H 59 L 22 86 L 11/29/24 02:06 38.0 C H 56 L 19 95 11/29/24 02:00 130/79 11/29/24 01:39 37.8 C H 56 L 19 95 11/29/24 01:30 112/72 11/29/24 01:06 37.6 C H 60 19 94 11/29/24 00:30 106/65 11/29/24 00:30 106/65 11/29/24 00:30 37.5 C 60 18 95 11/29/24 00:03 37.7 C H 62 18 96 11/29/24 00:00 104/67 11/28/24 23:59 63 11/28/24 23:54 37.7 C H 61 18 95 11/28/24 23:30 123/72 11/28/24 23:30 59 L 19 98 Nasal Cannula 11/28/24 23:27 37.8 C H 62 20 96 11/28/24 23:00 133/75 11/28/24 22:36 38 C H 59 L 18 96 11/28/24 22:30 124/72 11/28/24 22:27 38 C H 59 L 19 97 11/28/24 22:00 122/74 11/28/24 22:00 62 21 96 11/28/24 21:45 112/74 11/28/24 21:45 63 20 95 11/28/24 21:42 38.2 C H 65 18 95 11/28/24 21:30 107/71 O2 Flow Rate 11/29/24 08:55 11/29/24 08:30 11/29/24 08:12 11/29/24 07:30 11/29/24 07:00 11/29/24 06:03 11/29/24 06:00 11/29/24 05:30 3 11/29/24 05:03 3 11/29/24 05:00 3 11/29/24 04:33 11/29/24 04:30 11/29/24 04:27 11/29/24 04:00 11/29/24 04:00 11/29/24 03:33 11/29/24 03:30 11/29/24 03:24 11/29/24 03:00 11/29/24 03:00 11/29/24 02:30 11/29/24 02:30 11/29/24 02:06 11/29/24 02:00 11/29/24 01:39 11/29/24 01:30 11/29/24 01:06 11/29/24 00:30 11/29/24 00:30 11/29/24 00:30 11/29/24 00:03 11/29/24 00:00 11/28/24 23:59 11/28/24 23:54 11/28/24 23:30 11/28/24 23:30 2 11/28/24 23:27 11/28/24 23:00 11/28/24 22:36 11/28/24 22:30 11/28/24 22:27 11/28/24 22:00 11/28/24 22:00 11/28/24 21:45 11/28/24 21:45 11/28/24 21:42 11/28/24 21:30 Lab & Micro Results (Past 24 Hours) RBC 3.08 M/uL (4.20-5.40) L 11/29/24 WBC 5.62 K/ul (4.8-10.8) 11/29/24 Hgb 9.3 g/dl (12.0-16.0) L 11/29/24 Hct 27.5 % (37.0-47.0) L 11/29/24 MCV 89.3 fL (80.0-100.0) 11/29/24 MCH 30.2 pg (25.0-34.0) 11/29/24 MCHC 33.8 g/dL (32.0-36.0) 11/29/24 RDW Standard Deviation 45.4 fL (36.4-46.3) 11/29/24 RDW Coefficient of Variation 13.9 % (11.5-14.5) 11/29/24 Plt Count 57 K/uL (130-400) L 11/29/24 MPV 12.3 fL (9.4-12.4) 11/29/24 Neutrophils (%) (Auto) 57.8 % 11/29/24 Lymphocytes (%) (Auto) 26.2 % 11/29/24 Monocytes # (Auto) 0.86 K/uL (0.11-0.59) H 11/29/24 Eosinophils # (Auto) 0.00 K/uL (0.00-0.50) 11/29/24 Immature Granulocyte % (Auto) 0.5 % 11/29/24 Neutrophils # (Auto) 3.25 K/uL (1.40-6.50) 11/29/24 Lymphocytes # (Auto) 1.47 K/uL (1.20-3.40) 11/29/24 Monocytes # (Auto) 0.86 K/uL (0.11-0.59) H 11/29/24 Eosinophils # (Auto) 0.00 K/uL (0.00-0.50) 11/29/24 Basophils # (Auto) 0.01 K/uL (0.00-0.20) 11/29/24 Immature Granulocyte # (Auto) 0.03 K/uL (0.01-0.20) 5 Polychromasia 1+ 11/29/24 Na 134 mmol/L (136-145) L 11/29/24 K 3.8 mmol/L (3.5-5.1) 11/29/24 Cl 105 mmol/L (98-107) 11/29/24 CO2 24 mmol/L (21-32) 11/29/24 Anion Gap 5 (3-11) 11/29/24 BUN 13 mg/dl (6-23) 11/29/24 Creatinine 0.81 mg/dl (0.6-1.2) 11/29/24 BUN/Creatinine Ratio 16.0 (10-20) 11/29/24 Glu 106 mg/dl (70-99(Fasting)) H 11/29/24 Ca 8.1 mg/dl (8.6-10.3) L 11/29/24 Phosphorus Level 2.9 mg/dl (2.5-4.9) 11/29/24 Total Bilirubin 1.8 mg/dl (0.2-1.0) H 11/29/24 AST 72 U/L (13-39) H 11/29/24 ALT 39 U/L (7-52) 11/29/24 Alkaline Phosphatase 106 U/L (34-104) H 11/29/24 TP 5.9 gm/dl (6.0-8.3) L 11/29/24 Albumin 2.9 gm/dl (3.4-5.0) L 11/29/24 Globulin 3.0 gm/dl (2.5-4.0) 11/29/24 Albumin/Globulin Ratio 1.0 (0.9-2) 11/29/24 Lactate Dehydrogenase 443 U/L (86-244) H 11/28/24 Mg 2.0 mg/dl (1.7-2.4) 11/29/24 04:37 Calcium Level 8.1 mg/dl (8.6-10.3) L 11/29/24 04:37 Venous Blood pH 7.38 (7.36-7.41) 11/28/24 16:04 Venous Blood Partial Pressure CO2 35 mmHg (38-50) L 11/28/24 16 :04 Venous Blood Partial Pressure O2 34 mmHg 11/28/24 16:04 Venous Blood HCO3 21 mmol/L 11/28/24 16:04 Venous Blood Base Excess -3.8 mEq/L 11/28/24 16:04 Venous Blood Oxygen Saturation 62.6 % 11/28/24 16:04 Microbiology 11/29/24 07:11 Blood Parasites Smear - Preliminary Blood 11/28/24 15:59 Blood Parasites Smear - Preliminary Blood 11/27/24 12:03 Aerobic Blood Culture - Preliminary Blood No growth in Aerobic bottle after 24 hours. Anaerobic Blood Culture - Preliminary No growth in Anaerobic bottle after 24 hours. 11/27/24 11:48 Aerobic Blood Culture - Preliminary Blood No growth in Aerobic bottle after 24 hours. Anaerobic Blood Culture - Preliminary No growth in Anaerobic bottle after 24 hours. I & O Totals 24 Hours 11/28/24 11/29/24 11/30/24 06:59 06:59 06:59 Intake Total 4438.233 / 4438.233 3863.652 / 3863.652 Output Total 1040 / 1040 Balance 4438.233 / 4438.233 2823.652 / 2823.652 Cumulative 11/27/24 11:24 thru 11/29/24 06:20 Intake Total 8301.885 Output Total 1040 Balance 7261.885 RT Ventilator Mngmt (Last Documented) Ventilator Ordered Settings Respiratory Rate 32 11/29/24 08:30 Ventilator - PT Measurements Respiratory Rate 32 Coding Level of Care Code 39434 SUB INP/OBS CARE MIN Diagnoses Babesiosis B60.00 Hyponatremia E87.1 Hypotension I95.9 Compression fracture of T11 vertebra S22.080A Anemia D64.9 Thrombocytopenia D69.6
[2024-11-29] MEDS ORDERED: CALCIUM GLUCONATE 1,000 MG/60 ML BAG IV SCH (10:00)
[2024-11-29] MEDS: MIDODRINE HCL 2.5 MG TAB PO SCH (10:06)
[2024-11-29] MEDS: CALCIUM GLUCONATE 1,000 MG/60 ML BAG IV SCH (10:07)
--- NOTE | 2024-11-29 10:35 | Hospitalist Progress Note ---
Date of Service November 29, 2024 Assessment & Plan (1) Thrombocytopenia: (2) Acute hypotension: (3) Acute hyponatremia: (4) Babesiosis: (5) Transaminitis: (6) Hyponatremia: (7) Hypotension: Plan Patient is an 83-year-old female with past medical history of GERD, she is otherwise healthy and walks 10,000 steps per day. Patient presented after referral by PCP for fevers, chills, body aches, dark urine since Sunday. 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 Patient also noted that she slipped and fell onto her back approximately 3 weeks ago and was found to have a T11 and L2 compression fracture which she has been following with orthospine for. 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 However it doesnot rule out the presence of disease. PCR for Lyme and Anaplasma is pending -ID on board. -Patient still febrile with MRT 39.5 with chills and rigors. Will Start Doxycycline 100md BID -Parasitemia percent(11/29): 2-4.9% which is similar to 11/28. Will increase dose of Azithromycin to 500mg Iv daily -Will monitor parasite percent tomorrow #Hypotension -BP still delicate in the range of 90/60 -Continue Midodrine and Phenylephrine #Hyponatremia -Sodium: 129>134 -Monitor BMP #Transaminitis -Likely 2/2 to Babesiosis -liver enzymes improving -Monitor CMP daily #Fall/T11 compression fracture/L2 compression fracture - - S/p mechanical fall approximately 3 weeks ago, unrelated to above -Patient already following with orthospine. Was treating with Tylenol scheduled, tylenol maximum dose per day-2000mg Continue back brace PT/OT evaluation Continue to follow with orthospine in outpatient setting #Endometrial polyp/mass noted on AP CT Follow-up with outpatient [employer] #GERD continue PPI VTE ppx: SCDs, avoid chemical PPx with thrombocytopenia, encourage ambulation as tolerated Dispo: ICU Admission and Anticipated Discharge Date Admission Date: November 27, 2024 Supervising Physician Co-Signing Physician Notes I personally examined the patient and verified white points of history and exam, discussed case, and agree with decision making and plan documented by Dr. Kincaid. Patient with sepsis due to babesiosis. Increased azithromycin and added doxycycline per ID rec. Currently in critical care. Subjective Patient reports she is feeling about the same. She is febrile with maximum recorded temperature 39.5. She reported her appetite is decreased otherwise denies nausea/vomiting, abdominal pain. Had saturation drop with Oxygen requirement. Currently on 3L of oxygen. She reports chills with rigor. Review of Systems Review of Systems: As per HPI Physical Exam Physical Exam: Constitutional: Well appearing, No acute distress, PILCCOD: Negative HEENT: Atraumatic, Normocephalic, No conjunctival injection CVS: S1 S2 no murmur, Regular Rhythm, no LE edema Respiratory: BL equal air entry with NVBS. No rhonchi, wheezes, or crackles. No increased work of breathing GI: Soft, Nondistended, Nontender, Normal Bowel sounds + MSK: No gross deformities noted Skin: Warm, Dry, No rashes Neuro: Alert, Oriented to TPP, No Focal deficit Psych: Mood and Affect congruent, Cooperative on exam Results & Data Results & Data Vital Signs (Past 12 Hours) Vital Signs Temp Pulse Pulse Resp BP Pulse Ox O2 Del Method 11/29/24 09:48 Nasal Cannula 11/29/24 08:55 37.7 C H 11/29/24 08:30 39.4 C H 79 32 H 99/78 L 86 L 11/29/24 08:12 39.1 C H 63 26 H 103/73 95 11/29/24 07:30 38.6 C H 67 26 H 105/65 94 11/29/24 07:00 38.5 C H 74 33 H 111/69 84 L 11/29/24 06:03 36.5 C 60 22 95 11/29/24 06:00 137/69 11/29/24 05:30 59 L 20 120/76 96 11/29/24 05:03 59 L 21 95 11/29/24 05:00 115/72 11/29/24 04:33 37.8 C H 58 L 20 95 11/29/24 04:30 121/75 11/29/24 04:27 37.8 C H 59 L 20 95 11/29/24 04:00 58 L 19 95 11/29/24 04:00 115/67 11/29/24 03:33 38.1 C H 60 20 95 11/29/24 03:30 114/66 11/29/24 03:24 38.1 C H 62 20 94 11/29/24 03:00 38.2 C H 62 19 94 11/29/24 03:00 97/60 L 11/29/24 02:30 103/63 11/29/24 02:30 38.2 C H 59 L 22 86 L 11/29/24 02:06 38.0 C H 56 L 19 95 11/29/24 02:00 130/79 11/29/24 01:39 37.8 C H 56 L 19 95 11/29/24 01:30 112/72 11/29/24 01:06 37.6 C H 60 19 94 11/29/24 00:30 106/65 11/29/24 00:30 106/65 11/29/24 00:30 37.5 C 60 18 95 11/29/24 00:03 37.7 C H 62 18 96 11/29/24 00:00 104/67 11/28/24 23:59 63 11/28/24 23:54 37.7 C H 61 18 95 11/28/24 23:30 123/72 11/28/24 23:30 59 L 19 98 Nasal Cannula 11/28/24 23:27 37.8 C H 62 20 96 11/28/24 23:00 133/75 11/28/24 22:36 38 C H 59 L 18 96 O2 Flow Rate 11/29/24 09:48 3 11/29/24 08:55 11/29/24 08:30 11/29/24 08:12 11/29/24 07:30 11/29/24 07:00 11/29/24 06:03 11/29/24 06:00 11/29/24 05:30 3 11/29/24 05:03 3 11/29/24 05:00 3 11/29/24 04:33 11/29/24 04:30 11/29/24 04:27 11/29/24 04:00 11/29/24 04:00 11/29/24 03:33 11/29/24 03:30 11/29/24 03:24 11/29/24 03:00 11/29/24 03:00 11/29/24 02:30 11/29/24 02:30 11/29/24 02:06 11/29/24 02:00 11/29/24 01:39 11/29/24 01:30 11/29/24 01:06 11/29/24 00:30 11/29/24 00:30 11/29/24 00:30 11/29/24 00:03 11/29/24 00:00 11/28/24 23:59 11/28/24 23:54 11/28/24 23:30 11/28/24 23:30 2 11/28/24 23:27 11/28/24 23:00 11/28/24 22:36
--- NOTE | 2024-11-29 10:48 | XCELERA ---
[id number] [id number]
[2024-11-29] MEDS: PLASMA-LYTE A 1,000 ML IV SCH (13:11)
[2024-11-29] MEDS: DOCUSATE SODIUM 100 MG CAP PO PRN (13:11)
[2024-11-29] MEDS: AZITHROMYCIN 500 MG in DEXTROSE 5% 250 ML IV SCH (17:10)
[2024-11-29] MEDS: DOXYCYCLINE HYCLATE 100 MG CAP PO SCH (21:25)
[2024-11-29] MEDS ORDERED: AMIODARONE IV BOLUS & DRIP IV STA (21:34)
[2024-11-29] MEDS ORDERED: STAT IV Infusion **Titration per Protocol STA (21:34)
[2024-11-29] MEDS ORDERED: 0.2 MICRON FILTER SET 1 EACH IV STA (21:34)
[2024-11-29] MEDS: AMIODARONE / D5W 150 MG/100 ML BAG IV STA ×2 (21:45→22:39)
[2024-11-29] MEDS: AMIODARONE / D5W 360 MG/200 ML BAG IV ONE (21:55)
[2024-11-29] MEDS: MAGNESIUM SULFATE / D5W 1 GM/100 ML BAG IV ONE (21:58)
[2024-11-29] MEDS ORDERED: 0.2 MICRON FILTER SET 1 EACH IV ONE (22:12)
[2024-11-30] MEDS: AMIODARONE / D5W 360 MG/200 ML BAG IV SCH (04:04)
[2024-11-30 04:59] LABS: Hematocrit (blood only) 29.0 % (37.0-47.0); Hemoglobin 9.8 g/dl (12.0-16.0); Mean Corpuscular Hemoglobin 29.9 pg (25.0-34.0); Mean Corpuscular Volume 88.4 fL (80.0-100.0); Platelet Count 74 K/uL (130-400); RDW Standard Deviation 44.6 fL (36.4-46.3); Red Blood Count 3.28 M/uL (4.20-5.40); White Blood Count 6.03 K/ul (4.8-10.8)
[2024-11-30 05:19] LABS: Anion Gap 4.0 (3-11); Blood Urea Nitrogen 10.0 mg/dl (6-23); Calcium 7.6 mg/dl (8.6-10.3); Carbon Dioxide 26.0 mmol/L (21-32); Chloride 98.0 mmol/L (98-107); Creatinine Clr Calc Pharmacy 61.3 ml/min; Glucose 119.0 mg/dl (70-99(Fasting)); Magnesium 2.1 mg/dl (1.7-2.4); Potassium 4.0 mmol/L (3.5-5.1); Sodium 128.0 mmol/L (136-145)
[2024-11-30] MEDS ORDERED: SODIUM PHOSPHATE 3 MMOL/1 ML INFUSION IV STA (05:47)
[2024-11-30 06:09] LABS: Immature Granulocytes # (auto) 0.03 K/uL (0.01-0.20); Immature Granulocytes % (auto) 0.5 %
[2024-11-30] MEDS: SODIUM PHOSPHATE 21 MMOL in SODIUM CHLORIDE 0.9% 500 ML IV ONE (06:15)
--- NOTE | 2024-11-30 06:50 | Hospitalist Progress Note ---
Date of Service November 30, 2024 Assessment & Plan (1) Thrombocytopenia: (2) Acute hypotension: (3) Acute hyponatremia: (4) Babesiosis: (5) Transaminitis: (6) Hyponatremia: (7) Hypotension: Plan Patient is an 83-year-old female with past medical history of GERD, she is otherwise healthy and walks 10,000 steps per day. Patient presented after referral by PCP for fevers, chills, body aches, dark urine since Sunday. 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 Patient also noted that she slipped and fell onto her back approximately 3 weeks ago and was found to have a T11 and L2 compression fracture which she has been following with orthospine for. #Atrial Fibrillation - Went to [facility] at 22:00 on 11/29. Started Amiodarone - TTE reveals EF 55-80%; Mild to Moderate MR, Mild to Moderate TR, RVSP elevated at 40-50mm Hg and mildly dilated IV - Cardiology Consultation - Started on Heparin drip. Anticoagulation initially on hold due to low platelets. Platelet count seems to be improving #Increased O2 requirement -O2 requirement increased to 5l/min -Chest Xray with increased pulmonary markings in both lungs, and bilateral lower zone haziness suggesting edema -Lasix 10mg IV daily - #Babesiosis #Tick borne illness -Test positive for Babesia - On Atovaquone and Azithromycin -Tylenol 1000mg QID scheduled -Anaplasma and Lyme negative. However it does not rule out the presence of disease. PCR for Lyme and Anaplasma is pending -ID on board. Talked with ID on phone 11/29. Recommended Doxycycline. -H-[id number]-c-u-[id number]-d- -J-b-[id number]-u-u-c-l-i-n-e- -Parasitemia percent(11/30): 2-4.9% which is similar to 11/28. Remain on increased dose of Azithromycin to 500mg Iv daily -Will monitor parasite percent daily as per ID #Hypotension -BP still delicate in the range of 100/70 -Continue Midodrine and Phenylephrine #Hyponatremia -Sodium: 134>128 -Monitor BMP #Transaminitis -Likely 2/2 to Babesiosis -liver enzymes improving -Monitor CMP daily #Fall/T11 compression fracture/L2 compression fracture - - S/p mechanical fall approximately 3 weeks ago, unrelated to above -Patient already following with orthospine. Continue back brace PT/OT evaluation Continue to follow with orthospine in outpatient setting #Endometrial polyp/mass noted on AP CT Follow-up with outpatient [employer] #GERD continue PPI VTE ppx: Heparin Dispo: ICU Admission and Anticipated Discharge Date Admission Date: November 27, 2024 Supervising Physician Co-Signing Physician Notes I personally examined the patient and verified white points of history and exam, discussed case, and agree with decision making and plan documented by Dr. Kincaid. 83 y/o female with past medical history of lumbar compression fracture on admission for babesiosis. In ICU on pressors. Back on amiodarone due to return of atrial fibrillation, remains on heparin. Cardiology on board. Currently on 5L supplemental O2. Improved urine output with furosemide. Anaplasmosis PCR pending, doxycycline added per ID recommendations. Patient remains on azithromycin and atovaquone. [id number] on Bcx. No BM for 3 days, limited PO intake, gentle colonic stimulation, consider suppository tomorrow. Monitor closely. Subjective Patient appears to be in worse condition compared to yesterday. Went to [facility] yesterday at 22:00 and received Amiodarone. Sinus rhythm currently. Couldnot sleep well overnight. Oxygen requirement increased to 5 l/min. Patient appears tachypneic. Still Febrile with maximum recorded temperature 38.1 Review of Systems Review of Systems: As per HPI Physical Exam Physical Exam: Constitutional: Well appearing, No acute distress, PILCCOD: Negative HEENT: Atraumatic, Normocephalic, No conjunctival injection CVS: S1 S2 no murmur, Regular Rhythm, no LE edema Respiratory: BL equal air entry with NVBS. No rhonchi, wheezes, or crackles. No increased work of breathing GI: Soft, Nondistended, Nontender, Normal Bowel sounds + MSK: No gross deformities noted Skin: Warm, Dry, No rashes Neuro: Alert, Oriented to TPP, No Focal deficit Psych: Mood and Affect congruent, Cooperative on exam Results & Data Results & Data Vital Signs (Past 12 Hours) Vital Signs Temp Pulse Pulse Resp BP BP Pulse Ox 11/30/24 06:09 88 19 95 11/30/24 06:06 112/68 11/30/24 05:57 93 H 26 H 96 11/30/24 05:33 99 H 27 H 96 11/30/24 05:31 86/53 L 11/30/24 05:31 86/53 L 11/30/24 05:24 86/52 L 11/30/24 05:23 90/54 L 11/30/24 05:22 81/53 L 11/30/24 05:18 69 26 H 96 11/30/24 04:51 72 24 95 11/30/24 04:42 70 26 H 96 11/30/24 04:33 68 29 H 96 11/30/24 04:30 96/58 L 11/30/24 04:24 73 27 H 97 11/30/24 04:12 71 31 H 97 11/30/24 03:30 67 28 H 97 11/30/24 03:30 95/60 L 11/30/24 03:00 66 29 H 97 11/30/24 02:45 90/60 L 11/30/24 02:39 66 25 H 97 11/30/24 02:32 94/60 L 11/30/24 02:32 94/60 L 11/30/24 02:27 64 27 H 96 11/30/24 02:00 66 28 H 93 11/30/24 02:00 97/65 L 11/30/24 01:45 94/63 L 11/30/24 01:42 66 24 93 11/30/24 01:30 93/64 L 11/30/24 01:30 67 24 93 11/30/24 01:15 96/60 L 11/30/24 01:12 68 26 H 93 11/30/24 01:00 68 28 H 93 11/30/24 01:00 93/61 L 11/30/24 00:45 101/59 L 11/30/24 00:45 76 17 94 11/30/24 00:36 73 31 H 93 11/30/24 00:15 76 40 H 92 11/30/24 00:15 94/64 L 11/30/24 00:00 38 C H 76 25 H 90/58 L 96 11/29/24 23:48 73 26 H 95 11/29/24 23:33 76 28 H 95 11/29/24 23:30 77 11/29/24 23:30 94/54 L 06/28/25 23:21 113 H 35 H 94 11/29/24 23:15 100/60 11/29/24 23:09 85 34 H 90 11/29/24 23:00 123 H 11/29/24 23:00 38.1 C H 119 H 28 H 90 11/29/24 23:00 98/62 L 11/29/24 22:51 37.9 C H 11/29/24 22:45 93/65 L 11/29/24 22:27 127 H 33 H 94 11/29/24 22:14 39.1 C H 11/29/24 22:10 109/83 11/29/24 22:06 136 H 26 H 93 11/29/24 21:50 115/83 11/29/24 21:24 120 H 43 H 95 11/29/24 21:21 157/96 H 11/29/24 21:12 79 24 96 11/29/24 21:10 130/94 11/29/24 21:06 74 35 H 98 11/29/24 21:00 71 37 H 95 11/29/24 21:00 142/91 H 11/29/24 20:42 72 29 H 11/29/24 20:40 121/63 11/29/24 20:24 68 39 H 93 11/29/24 20:20 38 C H 126/81 11/29/24 20:18 68 31 H 94 11/29/24 20:10 36.5 C 120/70 11/29/24 19:50 121/76 11/29/24 19:48 73 16 92 11/29/24 19:40 11/29/24 19:40 115/72 11/29/24 19:31 123/73 11/29/24 19:22 129/78 11/29/24 19:06 71 28 H 94 O2 Del Method O2 Flow Rate 11/30/24 06:09 11/30/24 06:06 11/30/24 05:57 11/30/24 05:33 11/30/24 05:31 11/30/24 05:31 11/30/24 05:24 11/30/24 05:23 11/30/24 05:22 11/30/24 05:18 11/30/24 04:51 11/30/24 04:42 11/30/24 04:33 11/30/24 04:30 11/30/24 04:24 11/30/24 04:12 11/30/24 03:30 11/30/24 03:30 11/30/24 03:00 11/30/24 02:45 11/30/24 02:39 11/30/24 02:32 11/30/24 02:32 11/30/24 02:27 11/30/24 02:00 11/30/24 02:00 11/30/24 01:45 11/30/24 01:42 11/30/24 01:30 11/30/24 01:30 11/30/24 01:15 11/30/24 01:12 11/30/24 01:00 11/30/24 01:00 11/30/24 00:45 11/30/24 00:45 11/30/24 00:36 11/30/24 00:15 11/30/24 00:15 11/30/24 00:00 Nasal Cannula 5 11/29/24 23:48 11/29/24 23:33 11/29/24 23:30 11/29/24 23:30 11/29/24 23:21 11/29/24 23:15 11/29/24 23:09 11/29/24 23:00 11/29/24 23:00 11/29/24 23:00 11/29/24 22:51 11/29/24 22:45 11/29/24 22:27 11/29/24 22:14 11/29/24 22:10 11/29/24 22:06 11/29/24 21:50 11/29/24 21:24 11/29/24 21:21 11/29/24 21:12 11/29/24 21:10 11/29/24 21:06 11/29/24 21:00 11/29/24 21:00 11/29/24 20:42 11/29/24 20:40 11/29/24 20:24 11/29/24 20:20 11/29/24 20:18 11/29/24 20:10 11/29/24 19:50 11/29/24 19:48 11/29/24 19:40 Nasal Cannula 4 11/29/24 19:40 11/29/24 19:31 11/29/24 19:22 11/29/24 19:06
--- NOTE | 2024-11-30 07:18 | Critical Care Progress Note ---
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 She has thrombocytopenia and anemia. 24-hour events: Patient had return of paroxysmal A-fib. She was placed back on amiodarone. She appears better rate controlled today. She is having some pauses on telemetry. Anticoagulation was initially held due to low platelets however they appear to be recovering today. Recommendations: 1. Neurologic: Patient is neurologically intact. No acute issues. Continue to follow clinically. She has received oxycodone for pain due to her vertebral fractures. 2. Cardiovascular: A-fib with hypotension. Echocardiogram showed normal LV systolic function with moderate MR and moderate TR with an elevated right ventricular systolic pressure in the 40-50 range with mild dilatation of the inferior vena cava. Continue amiodarone for now. Would consider beta-manny once the patient's blood pressure allows. Will obtain formal cardiology consultation. Start anticoagulation with heparin given recovery of platelets. 3. Pulmonary: No current issues. Continue to follow clinically. 4. GI: Transaminitis improving. Total bili continues to slightly increase, not surprising, likely secondary to some degree of hemolysis 5. ID: Babesiosis. ID consultation pending. On atovaquone and azithromycin. Suspect she will continue to have some degree of cyclical fevers. Discontinue doxycycline at this point in time pending ID consultation. 6. Heme-onc: Risk for hemolytic anemia. Haptoglobin pending but LDH elevated and likely some degree of hemolysis. Will use SCDs for prophylaxis at this point in time. 7. Renal: At risk for renal insufficiency due to hemolysis. Mild hyponatremia today. Will see how she responds to Lasix. Electrolyte replacement protocol in place. 8. Endocrine: Random cortisol 16. Utility of steroids with 3% of parasitemia is unclear so we will hold off for now. Patient appears to be responding appropriately. She again is demonstrating adequate perfusion. Keep in the ICU while on vasopressor agents Admission and Anticipated Discharge Date Admission Date: November 27, 2024 Subjective Patient seen and examined. EMR reviewed. Discussed with overnight critical care VICTORINA and with bedside nurse in a multidisciplinary rounds. Patient reports that she is feeling about the same as yesterday. She did go back into A-fib last night and was poorly tolerant of this from a hemodynamic standpoint. This required reinitiation of amiodarone as well as phenylephrine. She is not complaining of any chest pain or palpitations today. She states her appetite is improving somewhat. Her fever curve continues to improve. Review of Systems Review of Systems: All systems reviewed & are unremarkable except as noted in Subjective Physical Exam Constitutional: WD/WN, vitals as above Neck: trachea midline, no thyromegaly Respiratory: normal respiratory effort, lungs clear to auscultation Cardiovascular: RRR, no murmur, no edema Gastrointestinal (Abdomen): normal bowel sounds, soft, nontender, no hepatos plenomegaly Musculoskeletal: Extremities: extremities normal to inspection Skin: no rashes, warm and dry Lymphatic: no cervical lymphadenopathy Results & Data Results & Data Vital Signs (Past 12 Hours) Vital Signs Temp Pulse Pulse Resp BP BP Pulse Ox 11/30/24 07:00 104/71 11/30/24 06:39 89 21 96 11/30/24 06:30 91 H 22 97 11/30/24 06:30 116/79 11/30/24 06:09 88 19 95 11/30/24 06:06 112/68 11/30/24 05:57 93 H 26 H 96 11/30/24 05:33 99 H 27 H 96 11/30/24 05:31 86/53 L 11/30/24 05:31 86/53 L 11/30/24 05:24 86/52 L 11/30/24 05:23 90/54 L 11/30/24 05:22 81/53 L 11/30/24 05:18 69 26 H 96 11/30/24 04:51 72 24 95 11/30/24 04:42 70 26 H 96 11/30/24 04:33 68 29 H 96 11/30/24 04:30 96/58 L 11/30/24 04:24 73 27 H 97 11/30/24 04:12 71 31 H 97 11/30/24 03:30 67 28 H 97 11/30/24 03:30 95/60 L 11/30/24 03:00 66 29 H 97 11/30/24 02:45 90/60 L 11/30/24 02:39 66 25 H 97 11/30/24 02:32 94/60 L 11/30/24 02:32 94/60 L 11/30/24 02:27 64 27 H 96 11/30/24 02:00 66 28 H 93 11/30/24 02:00 97/65 L 11/30/24 01:45 94/63 L 11/30/24 01:42 66 24 93 11/30/24 01:30 93/64 L 11/30/24 01:30 67 24 93 11/30/24 01:15 96/60 L 11/30/24 01:12 68 26 H 93 11/30/24 01:00 68 28 H 93 11/30/24 01:00 93/61 L 11/30/24 00:45 101/59 L 11/30/24 00:45 76 17 94 11/30/24 00:36 73 31 H 93 11/30/24 00:15 76 40 H 92 11/30/24 00:15 94/64 L 11/30/24 00:00 38 C H 76 25 H 90/58 L 96 11/29/24 23:48 73 26 H 95 11/29/24 23:33 76 28 H 95 11/29/24 23:30 77 11/29/24 23:30 94/54 L 11/29/24 23:21 113 H 35 H 94 11/29/24 23:15 100/60 11/29/24 23:09 85 34 H 90 11/29/24 23:00 123 H 11/29/24 23:00 38.1 C H 119 H 28 H 90 11/29/24 23:00 98/62 L 11/29/24 22:51 37.9 C H 11/29/24 22:45 93/65 L 11/29/24 22:27 127 H 33 H 94 11/29/24 22:14 39.1 C H 11/29/24 22:10 109/83 11/29/24 22:06 136 H 26 H 93 11/29/24 21:50 115/83 11/29/24 21:24 120 H 43 H 95 11/29/24 21:21 157/96 H 11/29/24 21:12 79 24 96 11/29/24 21:10 130/94 11/29/24 21:06 74 35 H 98 11/29/24 21:00 71 37 H 95 11/29/24 21:00 142/91 H 11/29/24 20:42 72 29 H 11/29/24 20:40 121/63 11/29/24 20:24 68 39 H 93 11/29/24 20:20 38 C H 126/81 11/29/24 20:18 68 31 H 94 11/29/24 20:10 36.5 C 120/70 11/29/24 19:50 121/76 11/29/24 19:48 73 16 92 11/29/24 19:40 11/29/24 19:40 115/72 11/29/24 19:31 123/73 11/29/24 19:22 129/78 O2 Del Method O2 Flow Rate 11/30/24 07:00 11/30/24 06:39 11/30/24 06:30 11/30/24 06:30 11/30/24 06:09 11/30/24 06:06 11/30/24 05:57 11/30/24 05:33 11/30/24 05:31 11/30/24 05:31 11/30/24 05:24 11/30/24 05:23 11/30/24 05:22 11/30/24 05:18 11/30/24 04:51 11/30/24 04:42 11/30/24 04:33 11/30/24 04:30 11/30/24 04:24 11/30/24 04:12 11/30/24 03:30 11/30/24 03:30 11/30/24 03:00 11/30/24 02:45 11/30/24 02:39 11/30/24 02:32 11/30/24 02:32 11/30/24 02:27 11/30/24 02:00 11/30/24 02:00 11/30/24 01:45 11/30/24 01:42 11/30/24 01:30 11/30/24 01:30 11/30/24 01:15 11/30/24 01:12 11/30/24 01:00 11/30/24 01:00 11/30/24 00:45 11/30/24 00:45 11/30/24 00:36 11/30/24 00:15 11/30/24 00:15 11/30/24 00:00 Nasal Cannula 5 11/29/24 23:48 11/29/24 23:33 11/29/24 23:30 11/29/24 23:30 11/29/24 23:21 11/29/24 23:15 11/29/24 23:09 11/29/24 23:00 11/29/24 23:00 11/29/24 23:00 11/29/24 22:51 11/29/24 22:45 11/29/24 22:27 11/29/24 22:14 11/29/24 22:10 11/29/24 22:06 11/29/24 21:50 11/29/24 21:24 11/29/24 21:21 11/29/24 21:12 11/29/24 21:10 11/29/24 21:06 11/29/24 21:00 11/29/24 21:00 11/29/24 20:42 11/29/24 20:40 11/29/24 20:24 11/29/24 20:20 11/29/24 20:18 11/29/24 20:10 11/29/24 19:50 11/29/24 19:48 11/29/24 19:40 Nasal Cannula 4 11/29/24 19:40 11/29/24 19:31 11/29/24 19:22 Critical Care Results & Data Vital Signs (Past 12 Hours) Vital Signs Temp Pulse Pulse Resp BP BP Pulse Ox 11/30/24 07:00 104/71 11/30/24 06:39 89 21 96 11/30/24 06:30 91 H 22 97 11/30/24 06:30 116/79 11/30/24 06:09 88 19 95 11/30/24 06:06 112/68 11/30/24 05:57 93 H 26 H 96 11/30/24 05:33 99 H 27 H 96 11/30/24 05:31 86/53 L 11/30/24 05:31 86/53 L 11/30/24 05:24 86/52 L 11/30/24 05:23 90/54 L 11/30/24 05:22 81/53 L 11/30/24 05:18 69 26 H 96 11/30/24 04:51 72 24 95 11/30/24 04:42 70 26 H 96 11/30/24 04:33 68 29 H 96 11/30/24 04:30 96/58 L 11/30/24 04:24 73 27 H 97 11/30/24 04:12 71 31 H 97 11/30/24 03:30 67 28 H 97 11/30/24 03:30 95/60 L 11/30/24 03:00 66 29 H 97 11/30/24 02:45 90/60 L 11/30/24 02:39 66 25 H 97 11/30/24 02:32 94/60 L 11/30/24 02:32 94/60 L 11/30/24 02:27 64 27 H 96 11/30/24 02:00 66 28 H 93 11/30/24 02:00 97/65 L 11/30/24 01:45 94/63 L 11/30/24 01:42 66 24 93 11/30/24 01:30 93/64 L 11/30/24 01:30 67 24 93 11/30/24 01:15 96/60 L 11/30/24 01:12 68 26 H 93 11/30/24 01:00 68 28 H 93 11/30/24 01:00 93/61 L 11/30/24 00:45 101/59 L 11/30/24 00:45 76 17 94 11/30/24 00:36 73 31 H 93 11/30/24 00:15 76 40 H 92 11/30/24 00:15 94/64 L 11/30/24 00:00 38 C H 76 25 H 90/58 L 96 11/29/24 23:48 73 26 H 95 11/29/24 23:33 76 28 H 95 11/29/24 23:30 77 11/29/24 23:30 94/54 L 11/29/24 23:21 113 H 35 H 94 11/29/24 23:15 100/60 11/29/24 23:09 85 34 H 90 11/29/24 23:00 123 H 11/29/24 23:00 38.1 C H 119 H 28 H 90 11/29/24 23:00 98/62 L 11/29/24 22:51 37.9 C H 11/29/24 22:45 93/65 L 11/29/24 22:27 127 H 33 H 94 11/29/24 22:14 39.1 C H 11/29/24 22:10 109/83 11/29/24 22:06 136 H 26 H 93 11/29/24 21:50 115/83 11/29/24 21:24 120 H 43 H 95 11/29/24 21:21 157/96 H 11/29/24 21:12 79 24 96 11/29/24 21:10 130/94 11/29/24 21:06 74 35 H 98 11/29/24 21:00 71 37 H 95 11/29/24 21:00 142/91 H 11/29/24 20:42 72 29 H 11/29/24 20:40 121/63 11/29/24 20:24 68 39 H 93 11/29/24 20:20 38 C H 126/81 11/29/24 20:18 68 31 H 94 11/29/24 20:10 36.5 C 120/70 11/29/24 19:50 121/76 11/29/24 19:48 73 16 92 11/29/24 19:40 11/29/24 19:40 115/72 11/29/24 19:31 123/73 11/29/24 19:22 129/78 O2 Del Method O2 Flow Rate 11/30/24 07:00 11/30/24 06:39 11/30/24 06:30 11/30/24 06:30 11/30/24 06:09 11/30/24 06:06 11/30/24 05:57 11/30/24 05:33 11/30/24 05:31 11/30/24 05:31 11/30/24 05:24 11/30/24 05:23 11/30/24 05:22 11/30/24 05:18 11/30/24 04:51 11/30/24 04:42 11/30/24 04:33 11/30/24 04:30 11/30/24 04:24 11/30/24 04:12 11/30/24 03:30 11/30/24 03:30 11/30/24 03:00 11/30/24 02:45 11/30/24 02:39 11/30/24 02:32 11/30/24 02:32 11/30/24 02:27 11/30/24 02:00 11/30/24 02:00 11/30/24 01:45 11/30/24 01:42 11/30/24 01:30 11/30/24 01:30 11/30/24 01:15 11/30/24 01:12 11/30/24 01:00 11/30/24 01:00 11/30/24 00:45 11/30/24 00:45 11/30/24 00:36 11/30/24 00:15 11/30/24 00:15 11/30/24 00:00 Nasal Cannula 5 11/29/24 23:48 11/29/24 23:33 11/29/24 23:30 11/29/24 23:30 11/29/24 23:21 11/29/24 23:15 11/29/24 23:09 11/29/24 23:00 11/29/24 23:00 11/29/24 23:00 11/29/24 22:51 11/29/24 22:45 11/29/24 22:27 11/29/24 22:14 11/29/24 22:10 11/29/24 22:06 11/29/24 21:50 11/29/24 21:24 11/29/24 21:21 11/29/24 21:12 11/29/24 21:10 11/29/24 21:06 11/29/24 21:00 11/29/24 21:00 11/29/24 20:42 11/29/24 20:40 11/29/24 20:24 11/29/24 20:20 11/29/24 20:18 11/29/24 20:10 11/29/24 19:50 11/29/24 19:48 11/29/24 19:40 Nasal Cannula 4 11/29/24 19:40 11/29/24 19:31 11/29/24 19:22 Lab & Micro Results (Past 24 Hours) RBC 3.28 M/uL (4.20-5.40) L 11/30/24 WBC 6.03 K/ul (4.8-10.8) 11/30/24 Hgb 9.8 g/dl (12.0-16.0) L 11/30/24 Hct 29.0 % (37.0-47.0) L 11/30/24 MCV 88.4 fL (80.0-100.0) 11/30/24 MCH 29.9 pg (25.0-34.0) 11/30/24 MCHC 33.8 g/dL (32.0-36.0) 11/30/24 RDW Standard Deviation 44.6 fL (36.4-46.3) 11/30/24 RDW Coefficient of Variation 13.8 % (11.5-14.5) 11/30/24 Plt Count 74 K/uL (130-400) L 11/30/24 MPV 12.7 fL (9.4-12.4) H 11/30/24 Neutrophils (%) (Auto) 56.9 % 11/30/24 Lymphocytes (%) (Auto) 26.4 % 11/30/24 Monocytes # (Auto) 0.95 K/uL (0.11-0.59) H 11/30/24 Eosinophils # (Auto) 0.01 K/uL (0.00-0.50) 11/30/24 Immature Granulocyte % (Auto) 0.5 % 11/30/24 Neutrophils # (Auto) 3.44 K/uL (1.40-6.50) 11/30/24 Lymphocytes # (Auto) 1.59 K/uL (1.20-3.40) 11/30/24 Monocytes # (Auto) 0.95 K/uL (0.11-0.59) H 11/30/24 Eosinophils # (Auto) 0.01 K/uL (0.00-0.50) 11/30/24 Basophils # (Auto) 0.01 K/uL (0.00-0.20) 11/30/24 Immature Granulocyte # (Auto) 0.03 K/uL (0.01-0.20) 5 Na 128 mmol/L (136-145) L 11/30/24 K 4.0 mmol/L (3.5-5.1) 11/30/24 Cl 98 mmol/L (98-107) 11/30/24 CO2 26 mmol/L (21-32) 11/30/24 Anion Gap 4 (3-11) 11/30/24 BUN 10 mg/dl (6-23) 11/30/24 Creatinine 0.66 mg/dl (0.6-1.2) 11/30/24 BUN/Creatinine Ratio 15.2 (10-20) 11/30/24 Glu 119 mg/dl (70-99(Fasting)) H 11/30/24 Ca 7.6 mg/dl (8.6-10.3) L 11/30/24 Phosphorus Level 1.6 mg/dl (2.5-4.9) L 11/30/24 Mg 2.1 mg/dl (1.7-2.4) 11/30/24 04:25 Calcium Level 7.6 mg/dl (8.6-10.3) L 11/30/24 04:25 Microbiology 11/27/24 12:03 Aerobic Blood Culture - Preliminary Blood No growth in Aerobic bottle after 48 hours. Anaerobic Blood Culture - Preliminary No growth in Anaerobic bottle after 48 hours. 11/27/24 11:48 Aerobic Blood Culture - Preliminary Blood No growth in Aerobic bottle after 48 hours. Anaerobic Blood Culture - Preliminary No growth in Anaerobic bottle after 48 hours. 11/28/24 15:59 Blood Parasites Smear - Final Blood 11/29/24 07:11 Blood Parasites Smear - Preliminary Blood I & O Totals 24 Hours 11/29/24 11/30/24 12/01/24 06:59 06:59 06:59 Intake Total 3863.652 / 3863.652 2494.090 / 2494.090 19.358 / 19.358 Output Total 1040 / 1040 1560 / 1560 Balance 2823.652 / 2823.652 934.090 / 934.090 19.358 / 19.358 Cumulative 11/27/24 11:24 thru 11/30/24 07:06 Intake Total 34429.333 Output Total 2600 Balance 8215.333 RT Ventilator Mngmt (Last Documented) Ventilator Ordered Settings Respiratory Rate 21 11/30/24 06:39 Ventilator - PT Measurements Respiratory Rate 21 Coding Level of Care Code 51712 SUB INP/OBS CARE 3/50MIN Diagnoses Babesiosis B60.00 Hyponatremia E87.1 Hypotension I95.9 Compression fracture of T11 vertebra S22.080A Anemia D64.9 Thrombocytopenia D69.6
--- NOTE | 2024-11-30 08:27 | XRay Report ---
EXAM: XR chest 1V portable CLINICAL HISTORY: Increase O2 requirement. TECHNIQUE: An X-ray image of the chest is obtained in AP projection. COMPARISON: 11/27/2024. FINDINGS: Pulmonary Parenchyma: Diffuse increased pulmonary marking in both lungs, and bilateral lower zones haziness, suggesting edema. No evidence of pleural effusion or pleural thickening. Heart and Mediastinum: Heart size and shape are normal. No mediastinal widening or masses. No hilar or mediastinal lymphadenopathy. Bony Thorax: Bony thorax appears intact without fractures or deformities. Soft Tissues: Soft tissues overlying the chest wall are unremarkable. IMPRESSION: Diffuse increased pulmonary marking in both lungs, and bilateral lower zones haziness, suggesting edema. Unchanged. Electronically signed by Deshawn Sands 11-30-2024 08:26 AM
[2024-11-30] MEDS: FUROSEMIDE INJ 20 MG/2 ML VIAL IV SCH (08:43)
[2024-11-30] MEDS: MIDODRINE HCL 2.5 MG TAB PO SCH (08:44)
[2024-11-30 09:08] LABS: INR 1.1 (0.9-1.1); Partial Thromboplastin Time 44 Seconds (21-31); Prothrombin Time 11.6 Seconds (9.0-12.0)
[2024-11-30] MEDS: HEPARIN SOD (PORCINE) 1000 UNIT/ML IV ONE (10:14)
[2024-11-30] MEDS: HEPARIN 25000 UNIT/500 ML D5W 25,000 UNITS/500 ML BAG IV SCH (10:14)
[2024-11-30] MEDS: ACETAMINOPHEN 500 MG TAB PO SCH (10:37)
--- NOTE | 2024-11-30 11:37 | Cardiology Consultation ---
Date of Consultation November 30, 2024 Assessment & Plan (1) Atrial fibrillation: (2) Mitral regurgitation: Plan 1. Atrial fibrillation: No known history of atrial fibrillation. Likely related to her advanced age, mitral regurgitation and acute illness. 5-hour episode without symptoms. Patient has been hypotensive since admission and he had recurrent hypotension. Now in sinus rhythm with a requirement for phenylephrine. Unclear relationship between atrial fibrillation and or hemodynamic compromise. In order to produce the best hemodynamic results continuing her amiodarone would seem reasonable at this point in time. After 24 hours we could consider change to an oral regimen. With respect to anticoagulation, guidelines would suggest the benefit in the setting of recurrent and prolonged episodes of atrial fibrillation. Unclear benefit in the acute term given the short episode she experienced. I think be reasonable to continue for another 24 hours to see if she is going to have more frequent and sustained episodes of atrial fibrillation. Otherwise, I have a low threshold for discontinuing heparin especially in the setting of her acute illness and thrombocytopenia. 2. Right regurgitation: Mild to moderate in echocardiogram. Not contributing to any clinical problems at this time. This can be monitored as an outpatient. History of Present Illness Reason for Consultation: Atrial fibrillation Requesting Physician: Hortencia Attending Physician: Nidhi Marcus DO History of Present Illness The patient is an 83-year-old woman without a known history of cardiac disease who presented to the hospital with constitutional symptoms and fevers. She was discovered to have hypotension and eventually diagnosed with baby emesis. She had been treated for that infection with antibiotics and antiparasitic agents. Also noted to be persistently hypotensive requiring pressure support on occasion. Yesterday evening she did develop atrial fibrillation. Overall heart rates were in the normal range. Patient was not aware of any palpitations. There may have been some worsening of her hypotension around that time. Amiodarone infusion and heparin were initiated. She resolved her atrial fibrillation 5 hours after it started. This morning the patient reports feeling "worse". She states that she feels worse today than she has during the rest of her hospitalization so far. Primarily seems to involve fatigue and tiredness. She does not report overt dyspnea. No pain with the exception of a headache. She was not aware of any palpitations last evening. Prior to her hospitalization she reports being quite active without cardiovascular symptoms. No history of atrial fibrillation. Allergies Allergy/AdvReac Type Severity Reaction Status Date / Time No Known Allergies Allergy Unknown Verified 11/27/24 14:38 Home Medications Medication Instructions Recorded Confirmed Type cholecalciferol (vitamin D3) 50 50 mcg PO DAILY 07/19/23 11/27/24 History mcg (2,000 unit) capsule multivitamin 1 tab PO DAILY 07/19/23 11/27/24 History multivitamin with minerals 1 tab PO DAILY 01/01/24 11/27/24 History (Hair,Skin and Nails tablet) latanoprost 0.005 % eye drops 1 drp ophthalmic (eye) HS 06/13/24 11/27/24 History timolol 0.5 % eye drops 1 drp ophthalmic (eye) QAM 06/13/24 11/27/24 History acetaminophen 500 mg tablet 500 mg PO Q6H PRN Pain 11/27/24 11/27/24 History estradiol 0.01% (0.1 mg/gram) 0.5 g vaginal HS PRN dryness 11/27/24 11/27/24 History vaginal cream pantoprazole 20 mg tablet,delayed 20 mg PO QAM 11/27/24 11/27/24 History release Patient History Medical History Arthritis GERD (gastroesophageal reflux disease) Surgical History H/O wrist surgery H/O colonoscopy History of cataract surgery Hx of left breast biopsy History of bilateral tubal ligation History of open reduction and internal fixation (ORIF) procedure History of cholecystectomy History of appendectomy History of tooth extraction Family History Mother Diabetes Hypertension Sister Diabetes Thyroid cancer Lung cancer Coronary heart disease Brother Hypertension Cancer of kidney Father Myocardial infarction Unknown Atherosclerosis Denies family history of Ovarian cancer Prostate cancer Breast cancer Colorectal cancer Stroke Social History Smoking Status: Never smoker Second Hand Exposure: No; Do You Dip or Chew Tobacco: No; Hx Alcohol Use: No Hx Substance Use: No Preferred Language: Georgian Communication Ability: Effective Visual Impairment: Limited Hearing Ability: Normal Medical Coding Manager Required: No Beliefs That Will Affect Care: None marital status: / Current Living Situation: Alone current occupational status: retired How many Children do You have: 2 Feels Safe at Home: Yes Childhood Exposure to Second-Hand Smoke: No caffeine: Yes (drinks coffee and soda ) Dental Care, Regularly: Yes Physical Activity Frequency: Daily Seatbelt Use: always Sunscreen Use: No Assistive Devices: None Review of Systems Review of Systems: Per HPI. Some abdominal fullness Physical Exam Physical Exam: She is alert and oriented x3. Mood affect appear normal. She answered all questions appropriately. HEENT: Sclerae are anicteric. Pupils are equal and reactive to light and accommodation. Extraocular movements were intact. Neuro: Cranial nerves intact Lungs: Lungs are clear to auscultation bilaterally. There are no rales wheezes or rhonchi. She has normal respiratory effort without use of accessory muscles. There is normal pulmonary excursion. Cardiac: The rhythm was regular. S1 and S2 were normal. There are no murmurs on examination. The PMI was not markedly displaced on palpation. Extremities: Patient has bilateral radial pulses that are equal in intensity. There is no evidence cyanosis or clubbing. There was no evidence of significant peripheral edema bilaterally. Skin: There are no rashes noted on examination today. Results & Data Vital Signs (Past 12 Hours) Vital Signs Temp Pulse Pulse Resp BP BP Pulse Ox 11/30/24 07:00 104/71 11/30/24 06:39 89 21 96 11/30/24 06:30 91 H 22 97 11/30/24 06:30 116/79 11/30/24 06:09 88 19 95 11/30/24 06:06 112/68 11/30/24 05:57 93 H 26 H 96 11/30/24 05:33 99 H 27 H 96 11/30/24 05:31 86/53 L 11/30/24 05:31 86/53 L 11/30/24 05:24 86/52 L 11/30/24 05:23 90/54 L 11/30/24 05:22 81/53 L 11/30/24 05:18 69 26 H 96 11/30/24 04:51 72 24 95 11/30/24 04:42 70 26 H 96 11/30/24 04:33 68 29 H 96 11/30/24 04:30 96/58 L 11/30/24 04:24 73 27 H 97 11/30/24 04:12 71 31 H 97 11/30/24 03:30 67 28 H 97 11/30/24 03:30 95/60 L 11/30/24 03:00 66 29 H 97 11/30/24 02:45 90/60 L 11/30/24 02:39 66 25 H 97 11/30/24 02:32 94/60 L 11/30/24 02:32 94/60 L 11/30/24 02:27 64 27 H 96 11/30/24 02:00 66 28 H 93 11/30/24 02:00 97/65 L 11/30/24 01:45 94/63 L 11/30/24 01:42 66 24 93 11/30/24 01:30 93/64 L 11/30/24 01:30 67 24 93 11/30/24 01:15 96/60 L 11/30/24 01:12 68 26 H 93 11/30/24 01:00 68 28 H 93 11/30/24 01:00 93/61 L 11/30/24 00:45 101/59 L 11/30/24 00:45 76 17 94 11/30/24 00:36 73 31 H 93 11/30/24 00:15 76 40 H 92 11/30/24 00:15 94/64 L 11/30/24 00:00 38 C H 76 25 H 90/58 L 96 11/29/24 23:48 73 26 H 95 11/29/24 23:33 76 28 H 95 O2 Del Method O2 Flow Rate 11/30/24 07:00 11/30/24 06:39 11/30/24 06:30 11/30/24 06:30 11/30/24 06:09 11/30/24 06:06 11/30/24 05:57 11/30/24 05:33 11/30/24 05:31 11/30/24 05:31 11/30/24 05:24 11/30/24 05:23 11/30/24 05:22 11/30/24 05:18 11/30/24 04:51 11/30/24 04:42 11/30/24 04:33 11/30/24 04:30 11/30/24 04:24 11/30/24 04:12 11/30/24 03:30 11/30/24 03:30 11/30/24 03:00 11/30/24 02:45 11/30/24 02:39 11/30/24 02:32 11/30/24 02:32 11/30/24 02:27 11/30/24 02:00 11/30/24 02:00 11/30/24 01:45 11/30/24 01:42 11/30/24 01:30 11/30/24 01:30 11/30/24 01:15 11/30/24 01:12 11/30/24 01:00 11/30/24 01:00 11/30/24 00:45 11/30/24 00:45 11/30/24 00:36 11/30/24 00:15 11/30/24 00:15 11/30/24 00:00 Nasal Cannula 5 11/29/24 23:48 11/29/24 23:33 Laboratory Results Abnormal Lab Results 11/30/24 11/30/24 04:25 08:11 WBC 6.03 RBC 3.28 L Hgb 9.8 L Hct 29.0 L MCV 88.4 MCH 29.9 MCHC 33.8 RDW Std Deviation 44.6 RDW Coeff of Lydia 13.8 Plt Count 74 L MPV 12.7 H Immature Gran % (Auto) 0.5 Neut % (Auto) 56.9 Lymph % (Auto) 26.4 [place] % (Auto) 15.8 Eos % (Auto) 0.2 Baso % (Auto) 0.2 Neut # (Auto) 3.44 Lymph # (Auto) 1.59 [place] # (Auto) 0.95 H Eos # (Auto) 0.01 Baso # (Auto) 0.01 Immature Gran # (Auto) 0.03 PT 11.6 INR 1.1 APTT 44 H PTT Ratio 1.6 Sodium 128 L Potassium 4.0 Chloride 98 Carbon Dioxide 26 Anion Gap 4 BUN 10 Creatinine 0.66 Est Cr Clr Drug Dosing 61.3 eGFR 87.53 BUN/Creatinine Ratio 15.2 Glucose 119 H Calcium 7.6 L Phosphorus 1.6 L D Magnesium 2.1 Blood Parasites ID Present Diagnostic Findings Echocardiogram 11/21/2024: Normal LV systolic function ejection fraction 55 to 60%. Mild to moderate mitral regurgitation. Mild to moderate tricuspid regurgitation. Mildly elevated RV systolic pressure at 40 to 50 mmHg. Mild dilation of the inferior vena cava. PG Care Time/CCT Total # of Minutes Spent Total Time Spent with Patient: Total time spent is greater than 50% in coordination of care (as documented) at patient's floor/unit and/or counseling patient: Coding Level of Care Code 15572 INT INP/OBS CARE 3/75MIN Diagnoses Atrial fibrillation I48.91 Mitral regurgitation I34.0
[2024-11-30] MEDS: Heparin IV Adult Wt-Based Standard w/ INITIAL Bolus Protocol IV STA (13:07)
[2024-11-30] MEDS ORDERED: Nursing to Pharmacy Communication SCH (13:15)
[2024-11-30] MEDS: DOXYCYCLINE HYCLATE 100 MG in DEXTROSE 5% MINI-B 100 ML IV SCH (14:03)
[2024-11-30 16:39] LABS: ANTI-Xa, UFH(UnfractionatedHep 0.46 IU/ml (0.3-0.7)
[2024-12-01 05:25] LABS: Hematocrit (blood only) 27.0 % (37.0-47.0); Hemoglobin 9.7 g/dl (12.0-16.0); Mean Corpuscular Hemoglobin 30.2 pg (25.0-34.0); Mean Corpuscular Volume 84.1 fL (80.0-100.0); Platelet Count 103 K/uL (130-400); RDW Standard Deviation 41.3 fL (36.4-46.3); Red Blood Count 3.21 M/uL (4.20-5.40); White Blood Count 6.01 K/ul (4.8-10.8)
[2024-12-01 05:50] LABS: ANTI-Xa, UFH(UnfractionatedHep 0.38 IU/ml (0.3-0.7)
[2024-12-01 06:20] LABS: Alanine Aminotransferase 35.0 U/L (7-52); Albumin Globulin Ratio 0.7 (0.9-2); Alkaline Phosphatase 113.0 U/L (34-104); Anion Gap 4.0 (3-11); Bilirubin,Total 2.0 mg/dl (0.2-1.0); Blood Urea Nitrogen 8.0 mg/dl (6-23); Calcium 7.7 mg/dl (8.6-10.3); Carbon Dioxide 27.0 mmol/L (21-32); Chloride 100.0 mmol/L (98-107); Creatinine Clr Calc Pharmacy 76.7 ml/min; Globulin 3.4 gm/dl (2.5-4.0); Glucose 121.0 mg/dl (70-99(Fasting)); Magnesium 2.1 mg/dl (1.7-2.4); Potassium 3.4 mmol/L (3.5-5.1); Sodium 131.0 mmol/L (136-145); Total Protein 5.8 gm/dl (6.0-8.3)
[2024-12-01 06:36] LABS: Immature Granulocytes # (auto) 0.03 K/uL (0.01-0.20); Immature Granulocytes % (auto) 0.5 %; Polychromasia 1+
--- NOTE | 2024-12-01 08:02 | Critical Care Progress Note ---
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 She has thrombocytopenia and anemia. 24-hour events: Off vasoactive's as of approximately 7 AM this morning Recommendations: 1. Neurologic: Patient is neurologically intact. No acute issues. Continue to follow clinically. She has received oxycodone for pain due to her vertebral fractures. 2. Cardiovascular: A-fib with hypotension. Echocardiogram showed normal LV systolic function with moderate MR and moderate TR with an elevated right ventricular systolic pressure in the 40-50 range with mild dilatation of the inferior vena cava. Continue amiodarone for now per cardiology. Would consider beta-manny once the patient's blood pressure allows. 3. Pulmonary: No current issues. Continue to follow clinically. 4. GI: Transaminitis improving. Total bili continues to slightly increase, not surprising, likely secondary to some degree of hemolysis 5. ID: Babesiosis. ID consultation pending. On atovaquone and azithromycin. Suspect she will continue to have some degree of cyclical fevers. Consider transition to oral medications once afebrile 6. Heme-onc: Risk for hemolytic anemia. Haptoglobin pending but LDH elevated and likely some degree of hemolysis, however H&H remains stable 7. Renal: At risk for renal insufficiency due to hemolysis. Mild hyponatremia improving electrolyte replacement protocol in place. 8. Endocrine: Random cortisol 16. Utility of steroids with 3% of parasitemia is unclear so we will hold off for now. Patient appears to be responding appropriately, hopeful for downgrade out of ICU tomorrow Admission and Anticipated Discharge Date Admission Date: November 27, 2024 Supervising Physician Co-Signing Physician Notes I have personally spent 35 minutes of critical care time in the direct management of this patient. This is a life/limb threatening event. This includes time spent evaluating patient, direct bedside care, chart review, placing orders, interpretation of diagnostic studies, discussion with consultants, patient, and/or family members regarding treatment decisions, as well as other required patient management activities. This time is exclusive of all separately billable procedures, and teaching time and separate from and in addition to any other critical care service time. Subjective Patient is pleasant and hopeful to get better. Off vasoactive's as of this morning feels mildly improved compared to yesterday Physical Exam Physical Exam: General: Alert. nontoxic. Skin: Warm, dry, Head: Atraumatic Ears, nose, mouth and throat: airway patent Cardiovascular: Normal peripheral perfusion Respiratory: no respiratory distress Gastrointestinal: Non distended Musculoskeletal: No deformity Results & Data Results & Data Vital Signs (Past 12 Hours) Vital Signs Temp Pulse Resp BP Pulse Ox 12/01/24 05:00 111/72 12/01/24 04:57 37.8 C H 64 21 98 12/01/24 04:06 38.2 C H 66 28 H 97 12/01/24 03:18 38.8 C H 107 H 25 H 95 12/01/24 02:06 39.0 C H 74 34 H 93 12/01/24 02:01 102/69 12/01/24 02:01 102/12/01/24 01:57 38.9 C H 65 30 H 98 12/01/24 01:00 38.5 C H 62 27 H 99 12/01/24 00:31 111/76 12/01/24 00:31 111/76 12/01/24 00:31 111/76 12/01/24 00:18 38.1 C H 59 L 26 H 99 12/01/24 00:06 38.0 C H 60 27 H 100 12/01/24 00:01 121/71 12/01/24 00:01 121/12/01/24 00:01 121/71 11/30/24 23:51 37.9 C H 59 L 29 H 100 11/30/24 23:00 110/61 11/30/24 23:00 110/61 11/30/24 23:00 110/61 11/30/24 23:00 37.7 C H 59 L 22 88 L 11/30/24 22:31 124/58 L 11/30/24 22:31 124/58 L 11/30/24 22:18 37.6 C H 63 25 H 91 11/30/24 22:15 37.6 C H 65 22 93 11/30/24 22:01 104/71 11/30/24 21:45 37.6 C H 59 L 30 H 93 11/30/24 21:30 121/69 11/30/24 21:21 37.7 C H 61 25 H 94 11/30/24 21:03 37.7 C H 60 21 96 11/30/24 21:01 109/65 11/30/24 20:51 37.7 C H 61 23 94 11/30/24 20:06 37.8 C H 58 L 27 H 95 Coding Level of Care Code 97077 CRITICAL CARE 1ST 30-74M Diagnoses Babesiosis B60.00 Hyponatremia E87.1 Hypotension I95.9 Compression fracture of T11 vertebra S22.080A Anemia D64.9 Thrombocytopenia D69.6
[2024-12-01] MEDS: POTASSIUM CHLORIDE CRTAB 20 MEQ TABCR PO SCH ×2 (09:01→09:28)
--- NOTE | 2024-12-01 10:23 | Cardiology Progress Note ---
Date of Service December 01, 2024 Assessment & Plan (1) Atrial fibrillation: (2) Mitral regurgitation: (3) Babesiosis: (4) Hypotension: Plan 1. Atrial fibrillation: No known history of atrial fibrillation. Likely related to her advanced age, mitral regurgitation and acute illness. 5-hour episode without symptoms. Patient has been hypotensive since admission and she had recurrent hypotension. Now in sinus rhythm with a requirement for phenylephrine. Unclear relationship between atrial fibrillation and or hemodynamic compromise. In order to produce the best hemodynamic results continuing her Amiodarone would seem reasonable at this point in time. After 24 hours we could consider change to an oral regimen. With respect to anticoagulation, guidelines would suggest the benefit in the setting of recurrent and prolonged episodes of atrial fibrillation. Unclear benefit in the acute term given the short episode she experienced. If she develops more frequent and sustained episodes of atrial fibrillation would be a candidate for anticoagulation. We would have a low threshold for discontinuing heparin especially in the setting of her acute illness and thrombocytopenia. Convert to oral Amiodarone 200 mg daily beginning on 12/02/24. 2. Mitral regurgitation: Mild to moderate in echocardiogram. Not contributing to any clinical problems at this time. This can be monitored as an outpatient. Admission and Anticipated Discharge Date Admission Date: November 27, 2024 Subjective Mrs. Lutz is an 83 year old female with a history of GERD, Mitral Regurgitation, and Tricuspid Regurgitation who presented with Acute Babesiosis and developed New Onset Atrial Fibrillation that lasted approximately 5 hours in total. She will finish up her IV Amiodarone loading this afternoon and she will be converted to oral Amiodarone beginning 12/02/24. Patient is feeling better overall. She denies any recurrent atrial fibrillation to her knowledge. She denies any palpitations or syncope. She denies any chest pain, heaviness, tightness, pressure, or discomfort. She denies any shortness of breath, dyspnea on exertion, orthopnea, or PND. Review of Systems Review of Systems: -- As per HPI. Physical Exam Physical Exam: Blood pressure is 111/72, pulse is 54 and regular. GENERAL: Patient in no acute distress. HEENT: Head is atraumatic, normocephalic. EOM's intact. Facies symmetric. No perioral cyanosis. NECK: No JVD. JVP is not elevated. Carotid upstrokes are + 2 bilaterally. No bruits. CHEST/LUNGS: Clear to auscultation throughout all lung emery. No wheezes, rales, or crackles. CVS: S1 and S2 are regular without murmurs, gallops, or rubs. PMI is nonpalpable. No lifts, heaves, or thrills. No abdominal aortic or renal br uits. ABDOMINAL EXAM: Bowel sounds are present. EXTREMITIES: No clubbing or cyanosis. No edema. Extremities are well perfused. NEUROLOGIC EXAM: Patient is awake, alert, and oriented. Pleasant and cooperative. Answers questions appropriately. Speech is clear. Results & Data Vital Signs (Past 12 Hours) Vital Signs Temp Pulse Resp BP Pulse Ox 12/01/24 09:30 37.4 C 56 L 31 H 98 12/01/24 09:09 37.5 C 65 19 97 12/01/24 09:00 117/69 12/01/24 08:03 37.4 C 64 20 96 12/01/24 08:01 118/64 12/01/24 07:30 37.4 C 56 L 22 99 12/01/24 07:01 110/66 12/01/24 07:00 37.4 C 56 L 22 96 12/01/24 05:00 111/72 12/01/24 04:57 37.8 C H 64 21 98 12/01/24 04:06 38.2 C H 66 28 H 97 12/01/24 03:18 38.8 C H 107 H 25 H 95 12/01/24 02:06 39.0 C H 74 34 H 93 12/01/24 02:01 102/12/01/24 02:01 102/12/01/24 01:57 38.9 C H 65 30 H 98 12/01/24 01:00 38.5 C H 62 27 H 99 12/01/24 00:31 111/76 12/01/24 00:31 111/12/01/24 00:31 11112/01/24 00:18 38.1 C H 59 L 26 H 99 12/01/24 00:06 38.0 C H 60 27 H 100 12/01/24 00:01 121/71 12/01/24 00:01 121/12/01/24 00:01 121/11/30/24 23:51 37.9 C H 59 L 29 H 100 11/30/24 23:00 110/61 11/30/24 23:00 110/61 11/30/24 23:00 110/61 11/30/24 23:00 37.7 C H 59 L 22 88 L 11/30/24 22:31 124/58 L 11/30/24 22:31 124/58 L Laboratory Results Laboratory Results - last 24 hr 11/29/24 11/30/24 12/01/24 07:11 16:04 04:49 WBC 6.01 RBC 3.21 L Hgb 9.7 L Hct 27.0 L MCV 84.1 MCH 30.2 MCHC 35.9 RDW Std Deviation 41.3 RDW Coeff of Lydia 13.4 Plt Count 103 L MPV 12.5 H Immature Gran % (Auto) 0.5 Neut % (Auto) 57.2 Lymph % (Auto) 25.8 [place] % (Auto) 16.1 Eos % (Auto) 0.2 Baso % (Auto) 0.2 Neut # (Auto) 3.44 Lymph # (Auto) 1.55 [place] # (Auto) 0.97 H Eos # (Auto) 0.01 Baso # (Auto) 0.01 Immature Gran # (Auto) 0.03 Absolute Nucleated RBC 0.02 Nucleated RBC % (auto) 0.3 Polychromasia 1+ Heparin Anti-Xa, Unfract 0.46 0.38 Sodium 131 L Potassium 3.4 L Chloride 100 Carbon Dioxide 27 Anion Gap 4 BUN 8 Creatinine 0.53 L Est Cr Clr Drug Dosing 76.7 eGFR 92.28 BUN/Creatinine Ratio 15.1 Glucose 121 H Calcium 7.7 L Phosphorus 2.6 D Magnesium 2.1 Total Bilirubin 2.0 H AST 72 H ALT 35 Alkaline Phosphatase 113 H Total Protein 5.8 L Albumin 2.4 L Globulin 3.4 Albumin/Globulin Ratio 0.7 L Procalcitonin Miscellaneous Test Pending 12/01/24 07:42 WBC RBC Hgb Hct MCV MCH MCHC RDW Std Deviation RDW Coeff of Lydia Plt Count MPV Immature Gran % (Auto) Neut % (Auto) Lymph % (Auto) [place] % (Auto) Eos % (Auto) Baso % (Auto) Neut # (Auto) Lymph # (Auto) [place] # (Auto) Eos # (Auto) Baso # (Auto) Immature Gran # (Auto) Absolute Nucleated RBC Nucleated RBC % (auto) Polychromasia Heparin Anti-Xa, Unfract Sodium Potassium Chloride Carbon Dioxide Anion Gap BUN Creatinine Est Cr Clr Drug Dosing eGFR BUN/Creatinine Ratio Glucose Calcium Phosphorus Magnesium Total Bilirubin AST ALT Alkaline Phosphatase Total Protein Albumin Globulin Albumin/Globulin Ratio Procalcitonin Pending Miscellaneous Test Medications Administered Medication List Albuterol (Albuterol 0.083% Nebu Soln 3 Ml Vial) 2.5 mg NEB Q6H PRN; Protocol PRN Reason: Shortness Of Breath Or Wheezing Stop: 12/28/24 21:53 Last Admin: 11/28/24 23:29 Dose: 2.5 mg Documented By: EKATERINA Atovaquone (Atovaquone 750 Mg/5 Ml Udc) 750 mg PO BID [facility] Stop: 12/27/24 20:59 Last Admin: 12/01/24 09:02 Dose: 750 mg Documented By: Admin: 11/30/24 21:01 Dose: 750 mg Documented By: Admin: 11/30/24 08:45 Dose: 750 mg Documented By: Admin: 11/29/24 21:25 Dose: 750 mg Documented By: Admin: 11/29/24 09:07 Dose: 750 mg Documented By: Admin: 11/28/24 21:33 Dose: 750 mg Documented By: Admin: 11/28/24 08:05 Dose: 750 mg Documented By: Admin: 11/27/24 20:19 Dose: 750 mg Documented By: STACI Docusate Sodium (Docusate Sodium 100 Mg Cap) 100 mg PO BID PRN PRN Reason: Constipation Stop: 12/27/24 18:30 Last Admin: 11/29/24 13:11 Dose: 100 mg Documented By: ALONSO Phenylephrine HCl (Phenylephrine/Nss) 25 mg in 250 mls @ 0 mls/hr IV .Q0M [facility]; Protocol Stop: 12/28/24 15:44 Last Titration: 12/01/24 10:05 Dose: 0 mcg/kg/min, 0 mls/hr Documented By: CECILIA(2) Co-signed By: CORA Titration: 12/01/24 07:08 Dose: 0.3 mcg/kg/min, 11.5 mls/hr Documented By: TP Co-signed By: CECILIA(2) Admin: 12/01/24 04:53 Dose: 0.3 mcg/kg/min, 11.5 mls/hr Documented By: TP Co-signed By: [id number] Titration: 12/01/24 04:53 Dose: Infused Documented By: TP Co-signed By: [id number] Admin: 11/30/24 21:22 Dose: 0.3 mcg/kg/min, 11.5 mls/hr Documented By: TP Co-signed By: [id number] Titration: 11/30/24 21:22 Dose: Infused Documented By: TP Co-signed By: [id number] Titration: 11/30/24 19:06 Dose: 0.3 mcg/kg/min, 11.5 mls/hr Documented By: AMB Co-signed By: TP Titration: 11/30/24 07:06 Dose: 0.3 mcg/kg/min, 11.5 mls/hr Documented By: AMB Co-signed By: ESG Titration: 11/30/24 05:25 Dose: 0.3 mcg/kg/min, 11.5 mls/hr Documented By: ESG Co-signed By: AMS Titration: 11/29/24 21:22 Dose: 0 mcg/kg/min, 0 mls/hr Documented By: ESG Co-signed By: [id number] Admin: 11/29/24 20:36 Dose: 0.3 mcg/kg/min, 11.5 mls/hr Documented By: ESG Co-signed By: [id number] Titration: 11/29/24 20:25 Dose: Infused Documented By: ESG Co-signed By: [id number] Titration: 11/29/24 17:51 Dose: 0.3 mcg/kg/min, 11.5 mls/hr Documented By: AMB Co-signed By: ESG(2) Titration: 11/29/24 06:20 Dose: 0 mcg/kg/min, 0 mls/hr Documented By: ESG Co-signed By: [email or web address] Titration: 11/29/24 03:35 Dose: 0.3 mcg/kg/min, 11.5 mls/hr Documented By: ESG Co-signed By: [id number] Titration: 11/28/24 23:30 Dose: 0.3 mcg/kg/min, 11.5 mls/hr Documented By: ESG Co-signed By: [id number] Titration: 11/28/24 19:10 Dose: 0.5 mcg/kg/min, 19.1 mls/hr Documented By: CECILIA Co-signed By: FRANSISCA(2) Admin: 11/28/24 16:04 Dose: 0.5 mcg/kg/min, 19.1 mls/hr Documented By: FRANSISCA(2) Co-signed By: KJLucinda Azithromycin 500 mg/ Dextrose 255 mls @ 125 mls/hr IV Q24H [facility] Stop: 12/06/24 15:59 Last Infusion: 11/30/24 18:36 Dose: Infused Documented By: Admin: 11/30/24 16:33 Dose: 125 mls/hr Documented By: Infusion: 11/29/24 20:34 Dose: Infused Documented By: Admin: 11/29/24 17:10 Dose: 125 mls/hr Documented By: AMB Amiodarone HCl/Dextrose (Nexterone / D5w) 360 mg in 200 mls @ 16.667 mls/hr IV .Q12H [facility] Stop: 12/30/24 03:44 Last Infusion: 12/01/24 07:08 Dose: 0.5 mg/min, 16.7 mls/hr Documented By: TP Co-signed By: CECILIA(2) Admin: 12/01/24 02:03 Dose: 0.5 mg/min, 16.7 mls/hr Documented By: TP Co-signed By: [id number] Infusion: 12/01/24 02:03 Dose: Infused Documented By: TP Co-signed By: [id number] Admin: 11/30/24 14:52 Dose: 0.5 mg/min, 16.7 mls/hr Documented By: AMB Co-signed By: GPF Infusion: 11/30/24 14:52 Dose: Infused Documented By: AMB Co-signed By: GPF Admin: 11/30/24 04:04 Dose: 0.5 mg/min, 16.7 mls/hr Documented By: CECILIA Co-signed By: FRANSISCA Heparin Sodium/Dextrose (Heparin 82852 Unit/500 Ml D5w) 25,000 units in 500 mls @ 21 mls/hr IV .[id number] [facility]; Protocol Stop: 12/30/24 07:44 Last Titration: 12/01/24 07:08 Dose: 1,050 units/hr, 21 mls/hr Documented By: MILADIS Co-signed By: CECILIA(2) Admin: 11/30/24 10:14 Dose: 1,050 units/hr, 21 mls/hr Documented By: ALONSO Co-signed By: GUDELIA Latanoprost (Latanoprost 0.005% Op Soln 2.5 Ml Btl) 1 drops OP HS [facility] Stop: 12/27/24 20:59 Last Admin: 11/30/24 21:04 Dose: 1 drops Documented By: Admin: 11/29/24 21:25 Dose: 1 drops Documented By: Admin: 11/28/24 21:33 Dose: 1 drops Documented By: Admin: 11/27/24 20:20 Dose: 1 drops Documented By: STACI Midodrine (Midodrine Hcl 2.5 Mg Tab) 7.5 mg PO TID@0800,1200,1700 [facility] Stop: 12/30/24 07:59 Last Admin: 12/01/24 09:01 Dose: 7.5 mg Documented By: Admin: 11/30/24 16:33 Dose: 7.5 mg Documented By: Admin: 11/30/24 14:11 Dose: 7.5 mg Documented By: Admin: 11/30/24 08:44 Dose: 7.5 mg Documented By: ALONSO Miscellaneous (Icu Electrolyte Replacement Protocol) 1 each N/A BID@06,18 [facility]; Protocol Stop: 12/05/24 17:59 Last Admin: 12/01/24 06:25 Dose: 1 each Documented By: Admin: 11/30/24 19:06 Dose: Not Given Documented By: Admin: 11/30/24 06:15 Dose: 1 each Documented By: Admin: 11/29/24 17:52 Dose: Not Given Documented By: Admin: 11/29/24 06:16 Dose: 1 each Documented By: Admin: 11/28/24 17:29 Dose: Not Given Documented By: FRANSISCA(2) Ondansetron HCl (Ondansetron Inj 2 Mg/Ml 2 Ml Vial) 4 mg IV Q6H PRN PRN Reason: Nausea And Vomiting Stop: 12/27/24 18:30 Last Admin: 11/28/24 05:03 Dose: 4 mg Documented By: STACI Oxycodone HCl (Oxycodone Hcl Ir 5 Mg Tab (Immediate Release)) 5 mg PO Q6 PRN PRN Reason: Severe Pain (Scale 7, 8, 9,10) Stop: 12/11/24 18:30 Last Admin: 11/28/24 19:41 Dose: 5 mg Documented By: CECILIA Pantoprazole Sodium (Pantoprazole 40 Mg Tab) 40 mg PO QAM [facility] Stop: 12/28/24 08:59 Last Admin: 12/01/24 09:02 Dose: 40 mg Documented By: Admin: 11/30/24 08:46 Dose: 40 mg Documented By: Admin: 11/29/24 09:07 Dose: 40 mg Documented By: Admin: 11/28/24 08:05 Dose: 40 mg Documented By: LEXI Potassium Chloride (Potassium Chloride Crtab 20 Meq Tabcr) 40 meq PO Q4 [facility] Stop: 12/01/24 12:01 Last Admin: 12/01/24 09:01 Dose: 40 meq Documented By: CORA Timolol Maleate (Timolol Maleate 0.5% Op Soln 5 Ml Btl) 1 drops [facility] [place] Stop: 12/28/24 08:59 Last Admin: 12/01/24 09:02 Dose: 1 drops Documented By: Admin: 11/30/24 08:46 Dose: 1 drops Documented By: Admin: 11/29/24 09:08 Dose: 1 drops Documented By: Admin: 11/28/24 08:05 Dose: 1 drops Documented By: LEXI PG Care Time/CCT Total # of Minutes Spent Total Time Spent with Patient: Total time spent is greater than 50% in coordination of care (as documented) at patient's floor/unit and/or counseling patient:35 Coding [place] [address] SUB INP/OBS CARE 3/50MIN Patient Type Established History Detailed Exam Detailed Medical Decision Making Moderate Complexity Diagnoses Paroxysmal atrial fibrillation I48.0 Atrial fibrillation type: paroxysmal Nonrheumatic mitral valve regurgitation I34.0 Cardiac valve disease etiology: nonrheumatic 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
--- NOTE | 2024-12-01 12:48 | Hospitalist Progress Note ---
Date of Service December 01, 2024 Assessment & Plan (1) Thrombocytopenia: (2) Acute hypotension: (3) Acute hyponatremia: (4) Babesiosis: (5) Transaminitis: (6) Hyponatremia: (7) Hypotension: Plan Patient is an 83-year-old female with past medical history of GERD, she is otherwise healthy and walks 10,000 steps per day. Patient presented after referral by PCP for fevers, chills, body aches, dark urine since Sunday. 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 Patient also noted that she slipped and fell onto her back approximately 3 weeks ago and was found to have a T11 and L2 compression fracture which she has been following with orthospine for. #Atrial Fibrillation - Went to Afib at 22:00 on 11/29. Continue IV Amiodarone. Switch to Oral tomorrow. - TTE reveals EF 55-80%; Mild to Moderate MR, Mild to Moderate TR, RVSP elevated at 40-50mm Hg and mildly dilated IV - Cardiology on board. Appreciate Cardiology Recommendations - Continue Heparin drip. Anticoagulation initially on hold due to low platelets. Platelet count seems to be improving #Increased O2 requirement -Likely 2/2 to Babesiosis -O2 requirement 2l/min -Chest Xray with increased pulmonary markings in both lungs, and bilateral lower zone haziness suggesting edema -Lasix 10mg IV daily -Continue the same course today #Babesiosis #Tick borne illness -Test positive for Babesia - On Atovaquone and Azithromycin -Tylenol 1000mg QID scheduled -Anaplasma and Lyme negative. However it does not rule out the presence of disease. PCR for Lyme and Anaplasma is pending -ID on board. Talked with ID on phone 11/29. Recommended Doxycycline. Continue IV Doxycycline -Parasitemia percent(11/30): 2-4.9% which is similar to 11/28. Remain on increased dose of Azithromycin to 500mg Iv daily -Will monitor parasite percent daily as per ID #Hypotension -BP improved to 109/62 -Continue Midodrine and Phenylephrine #Hyponatremia -Sodium:131 -Replete according to ICU electrolyte protocol -Monitor BMP #Transaminitis -Likely 2/2 to Babesiosis -liver enzymes improving -Monitor CMP daily #Fall/T11 compression fracture/L2 compression fracture - - S/p mechanical fall approximately 3 weeks ago, unrelated to above -Patient already following with orthospine. Continue back brace PT/OT evaluation Continue to follow with orthospine in outpatient setting #Endometrial polyp/mass noted on AP CT Follow-up with outpatient [facility] #GERD continue PPI VTE ppx: Heparin Dispo: ICU Admission and Anticipated Discharge Date Admission Date: November 27, 2024 Supervising Physician Co-Signing Physician Notes I personally examined the patient and verified all white points of history and exam, discussed case, and agree with decision making with Dr Kincaid Feeling a bit of headaches this afternoon. Abdomen somewhat bloated, no bowel movements. Otherwise no new complaints. Poor p.o. intake/poor appetite. Vitals noted, in general she is awake and alert pleasant no distress. HEENT normocephalic atraumatic mucous membranes moist. Left greater than right suboc cipitals high tone, tender, decreased range of motioninhibitory pressureimproved some. Patient tolerated well. Neuro without focal deficits. Babesiosis, concern on concomitant anaplasmosiscontinue Zithromax/atovaquone, continue doxycycline. Encouraged better p.o. intake. Discussed anticipated fairly long course of recovery and concern on malnutrition during that time period. Headacheappears to be suboccipital tension headachegentle OMT as above atrial fibrillationrate controlled. Appreciate cardiology assistance. Constipation gentle bowel regimen. Otherwise as above Subjective Patient looks and feels a lot better than yesterday. No any events overnight. Still febrile with MRT 39.0. Has persistence of on and off chills, rigors, malaise. Feels bloated, not had bowel movement since 4 days. Review of Systems Review of Systems: As per HPI Physical Exam Physical Exam: Constitutional: Well appearing, No acute distress, PILCCOD: Negative HEENT: Atraumatic, Normocephalic, No conjunctival injection CVS: S1 S2 no murmur, Regular Rhythm, no LE edema Respiratory: BL equal air entry with NVBS. No rhonchi, wheezes, or crackles. No increased work of breathing GI: Soft, Nondistended, Nontender, Normal Bowel sounds + MSK: No gross deformities noted Skin: Warm, Dry, No rashes Neuro: Alert, Oriented to TPP, No Focal deficit Psych: Mood and Affect congruent, Cooperative on exam Results & Data Results & Data Vital Signs (Past 12 Hours) Vital Signs Temp Pulse Resp BP Pulse Ox O2 Del Method O2 Flow Rate 12/01/24 12:24 109/62 12/01/24 12:06 37.5 C 59 L 26 H 94 12/01/24 12:01 73/45 L 12/01/24 11:54 37.5 C 58 L 24 94 12/01/24 11:00 37.6 C H 62 26 H 94 12/01/24 11:00 113/62 12/01/24 10:27 37.7 C H 57 L 18 96 12/01/24 10:27 99/74 L 12/01/24 10:03 37.7 C H 54 L 23 96 12/01/24 09:30 37.4 C 56 L 31 H 98 12/01/24 09:09 37.5 C 65 19 97 12/01/24 09:00 Nasal Cannula 2 12/01/24 09:00 117/69 12/01/24 08:03 37.4 C 64 20 96 12/01/24 08:01 118/64 12/01/24 08:00 58 L 12/01/24 07:30 37.4 C 56 L 22 99 12/01/24 07:01 110/66 12/01/24 07:00 37.4 C 56 L 22 96 12/01/24 05:00 111/72 12/01/24 04:57 37.8 C H 64 21 98 12/01/24 04:06 38.2 C H 66 28 H 97 12/01/24 03:18 38.8 C H 107 H 25 H 95 12/01/24 02:06 39.0 C H 74 34 H 93 12/01/24 02:01 102/69 12/01/24 02:01 102/69 12/01/24 01:57 38.9 C H 65 30 H 98 12/01/24 01:00 38.5 C H 62 27 H 99 (7) Hypotension Hypotension type: unspecified hypotension type Qualified Code(s): I95.9 - Hypotension, unspecified
--- NOTE | 2024-12-01 15:23 | Infectious Disease Progress Nt ---
Date of Service December 01, 2024 Assessment & Plan (1) Thrombocytopenia: (2) Babesiosis: (3) Sepsis: (4) Compression fracture of T11 vertebra: Plan ID Problem List: # Babesiosis # Fevers # Thrombocytopenia # Recent fall 3 weeks prior, T11/L2 compression fractures Impression: Tere Lutz is an 83-year-old woman with history of T11 and L2 compression fracture, glaucoma, TMJ, IBS, who presents to [facility] ED on 11/27/24 for weakness and fevers up to 104F, found to have a positive Babesia smear. ID is consulted for babesiosis. The patient slipped and fell on her back 3 weeks ago, resulting in T11 and L2 compression fractures and she has been wearing a brace. Prior her fall, she has been healthy, independent in ADLs, and walks 10k steps a day. She has been feeling unwell since 11/23, and experiencing dark urine, chills, and generalized body aches. Starting on Sunday 11/26, her daughter measured her temperature and noted that she was having high fevers up to 104F, that would then mayito by the evening. She has continued to have fevers and chills since that time, as well as weakness making it hard for her to get out of bed. She denied cough/congestion/rhinorrhea, headaches, vision changes, chest pain, shortness of breath, n/v/d, dysuria. In the ED, Tmax on 11/27 of 39C, hypotensive with SBPs to 70s that improved with IV fluids, WBC 4.3 Hgb plt 46 AST 78 ALT 48 tbili 2.3 procal 3.6. UA neg for LE/nitrites (no microscopy done). 11/27 CXR without acute findings. 11/27 CT A/P showing T11 and L2 compression fractures, increased spleen size, small endometrial polyp/mass, no other acute findings. 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 She was given pip-tazo in the ED which was discontinued. She was then treated with azithromycin and atovaquone. On 11/28, Tmax 37.9, WBC 4.77 plt 56, AST 63 ALT 36 alk phos 123 tbili 1.6 LDH 443. At the time of evaluation, her daughter is at bedside. She is still e xperiencing intermittent fevers and chills in cycles. She has generalized weakness and body aches, with pain especially in her thighs and hip muscles. She does not recall any tick bites, but [place] and frequently walks outdoors and does gardening/yardwork. She notes there are often deer in her yard. Discussion The patient presents with high fevers and chills, found to have thrombocytopenia, elevated transaminases, CT A/P with increased spleen, and found to have a positive blood smear for Babesia. Lyme screen negative. Blood smear without e/o Anaplasma but Anaplasma PCR pending. I discussed with Dr. Kincaid of the primary team on 11/28 the lab is not able to discern parasitemia % from 11/27 smear given that it has to be done within 1h of the blood draw. She is due for repeat smear today and tomorrow (and subsequently if needed) with parasitemia % requested. She is not known to be immunocompromised but given her older age she is at higher risk for severe disease. Based on % parasitemia and clinical symptoms, can risk-stratify to mild-moderate vs. severe disease, which has different treatment dosing and monitoring parameters, as per below; severe disease also has a much higher risk of relapse. Reassuringly, she has mildly elevated LFTs which are already starting to downtrend, normal renal function, and normal mental status. She is starting to have worsening hypoxemia (2L increased to 4L on 11/28) and would monitor closely given possible progression to ARDS. Can continue azithromycin and atovaquone, with the azithromycin currently dosed for mild-moderate disease.. QTc 431 on 11/28. If % parasitemia and clinical improvement are consistent with mild-moderate disease, then anticipate completing a 10-day course of treatment. If % parasitemia >=4% or clinical worsening, would increase azithromycin to 500 mg IV daily and low threshold to add doxycycline while awaiting Anaplasma PCR, and will need more intensive monitoring of blood smears. 11/28, 11/29, 11/30 smears with 2-4.9% parasitemia. Azithromycin dose increased from 250 to 500 mg IV daily on 11/29. O2 requirement increased to 5 L overnight on 11/30, now down to 2 L NC. Thrombocytopenia improving. Recommendations: - Continue treatment with azithromycin 500 mg IV daily and atovaquone 750 mg PO q12h. - Continue doxycycline 100 mg PO BID pending Anaplasma PCR - Obtain daily blood smear for % parasitemia - Continue to trend CBC w/ diff and CMP - F/u 11/27 Babesia PCR, Anaplasma DNA PCR - F/u 11/27 BCx until finalized to ensure remains negative - Per primary team, can repeat Lyme screen in 2-4 weeks - Ensure close follow-up with PCP ID will continue to follow. Please contact us with any questions. Admission and Anticipated Discharge Date Admission Date: November 27, 2024 Subjective This patient recommendation is based on a telemedicine consult request which was completed asynchronously through chart review and information provided by the primary physician. The patient was not seen or examined today. The evaluation is consultative in nature and all patient care and treatment decisions can either be accepted or rejected by the patient's primary hospital-based treating physician using their own independent medical judgment for their patient. Time Spent Reviewing Chart: 31+ minutes Febrile overnight On 2 L NC Review of System pt not seen Physical Exam Physical Exam: pt not seen Results & Data Vital Signs (Past 12 Hours) Vital Signs Temp Pulse Resp BP Pulse Ox O2 Del Method O2 Flow Rate 12/01/24 12:24 109/62 12/01/24 12:06 37.5 C 59 L 26 H 94 12/01/24 12:01 73/45 L 12/01/24 11:54 37.5 C 58 L 24 94 12/01/24 11:00 37.6 C H 62 26 H 94 12/01/24 11:00 113/62 12/01/24 10:27 37.7 C H 57 L 18 96 12/01/24 10:27 99/74 L 12/01/24 10:03 37.7 C H 54 L 23 96 12/01/24 09:30 37.4 C 56 L 31 H 98 12/01/24 09:09 37.5 C 65 19 97 12/01/24 09:00 Nasal Cannula 2 12/01/24 09:00 117/69 12/01/24 08:03 37.4 C 64 20 96 12/01/24 08:01 118/64 12/01/24 08:00 58 L 12/01/24 07:30 37.4 C 56 L 22 99 12/01/24 07:01 110/66 12/01/24 07:00 37.4 C 56 L 22 96 12/01/24 05:00 111/72 12/01/24 04:57 37.8 C H 64 21 98 12/01/24 04:06 38.2 C H 66 28 H 97 12/01/24 03:18 38.8 C H 107 H 25 H 95 Laboratory Results Short CBC 12/01/24 Range/Units 04:49 WBC 6.01 (4.8-10.8) K/ul Hgb 9.7 L (12.0-16.0) g/dl Hct 27.0 L (37.0-47.0) % Plt Count 103 L (130-400) K/uL BMP 12/01/24 04:49 Sodium 131 L Potassium 3.4 L Chloride 100 Carbon Dioxide 27 BUN 8 Creatinine 0.53 L Glucose 121 H Calcium 7.7 L Liver Function 12/01/24 Range/Units 04:49 Total Bilirubin 2.0 H (0.2-1.0) mg/dl AST 72 H (13-39) U/L ALT 35 (7-52) U/L Alkaline Phosphatase 113 H (34-104) U/L Albumin 2.4 L (3.4-5.0) gm/dl Medications Administered Current Inpatient Medications Acetaminophen (Acetaminophen 500 Mg Tab) 1,000 mg PO Q8H PRN PRN Reason: pain Stop: 12/31/24 15:59 Albuterol (Albuterol 0.083% Nebu Soln 3 Ml Vial) 2.5 mg NEB Q6H PRN; Protocol PRN Reason: Shortness Of Breath Or Wheezing Stop: 12/28/24 21:53 Last Admin: 11/28/24 23:29 Dose: 2.5 mg Atovaquone (Atovaquone 750 Mg/5 Ml Udc) 750 mg PO BID NAVIN Stop: 12/27/24 20:59 Last Admin: 12/01/24 09:02 Dose: 750 mg Docusate Sodium (Docusate Sodium 100 Mg Cap) 100 mg PO BID PRN PRN Reason: Constipation Stop: 12/27/24 18:30 Last Admin: 11/29/24 13:11 Dose: 100 mg Doxycycline Hyclate (Doxycycline Hyclate 100 Mg Cap) 100 mg PO BID NAVIN Stop: 12/07/24 20:59 Phenylephrine HCl (Phenylephrine/Nss) 25 mg in 250 mls @ 11.484 mls/hr IV .[id number] [facility]; Protocol Stop: 12/28/24 15:44 Last Admin: 12/01/24 14:08 Dose: Not Given Azithromycin 500 mg/ Dextrose 255 mls @ 125 mls/hr IV Q24H [facility] Stop: 12/06/24 15:59 Last Infusion: 11/30/24 18:36 Dose: Infused Amiodarone HCl/Dextrose (Nexterone / D5w) 360 mg in 200 mls @ 16.667 mls/hr IV .Q12H [facility] Stop: 12/30/24 03:44 Last Admin: 12/01/24 13:09 Dose: 0.5 mg/min, 16.7 mls/hr Heparin Sodium/Dextrose (Heparin 12705 Unit/500 Ml D5w) 25,000 units in 500 mls @ 21 mls/hr IV .[id number] [facility]; Protocol Stop: 12/30/24 07:44 Last Admin: 12/01/24 10:28 Dose: 1,050 units/hr, 21 mls/hr Latanoprost (Latanoprost 0.005% Op Soln 2.5 Ml Btl) 1 drops OP HS [facility] Stop: 12/27/24 20:59 Last Admin: 11/30/24 21:04 Dose: 1 drops Midodrine (Midodrine Hcl 2.5 Mg Tab) 7.5 mg PO TID@0800,1200,1700 [facility] Stop: 12/30/24 07:59 Last Admin: 12/01/24 12:00 Dose: 7.5 mg Miscellaneous (Icu Electrolyte Replacement Protocol) 1 each N/A BID@06,18 [facility]; Protocol Stop: 12/05/24 17:59 Last Admin: 12/01/24 06:25 Dose: 1 each Ondansetron HCl (Ondansetron Inj 2 Mg/Ml 2 Ml Vial) 4 mg IV Q6H PRN PRN Reason: Nausea And Vomiting Stop: 12/27/24 18:30 Last Admin: 11/28/24 05:03 Dose: 4 mg Oxycodone HCl (Oxycodone Hcl Ir 5 Mg Tab (Immediate Release)) 5 mg PO Q6 PRN PRN Reason: Severe Pain (Scale 7, 8, 9,10) Stop: 12/11/24 18:30 Last Admin: 11/28/24 19:41 Dose: 5 mg Oxycodone HCl (Oxycodone Hcl Ir 5 Mg Tab (Immediate Release)) 2.5 mg PO Q6 PRN PRN Reason: Moderate Pain (Scale 4, 5, 6) Stop: 12/11/24 18:30 Pantoprazole Sodium (Pantoprazole 40 Mg Tab) 40 mg PO QAM [facility] Stop: 12/28/24 08:59 Last Admin: 12/01/24 09:02 Dose: 40 mg Timolol Maleate (Timolol Maleate 0.5% Op Soln 5 Ml Btl) 1 drops OP QAM NAVIN Stop: 12/28/24 08:59 Last Admin: 12/01/24 09:02 Dose: 1 drops (3) Sepsis Sepsis acute organ dysfunction status: unspecified Sepsis type: sepsis due to unspecified organism Qualified Code(s): A41.9 - Sepsis, unspecified organism
--- NOTE | 2024-12-01 16:32 | Billing Data ---
Date of Service December 01, 2024 Coding Level of Care Code 80921 SUB INP/OBS CARE
[2024-12-01] MEDS: ACETAMINOPHEN 500 MG TAB PO PRN (17:06)
[2024-12-01] MEDS: DOXYCYCLINE HYCLATE 100 MG CAP PO SCH (22:11)
[2024-12-02 04:52] LABS: ANTI-Xa, UFH(UnfractionatedHep 0.37 IU/ml (0.3-0.7)
[2024-12-02 05:08] LABS: Alanine Aminotransferase 33.0 U/L (7-52); Alkaline Phosphatase 110.0 U/L (34-104); Anion Gap 5.0 (3-11); Bilirubin,Total 2.0 mg/dl (0.2-1.0); Blood Urea Nitrogen 10.0 mg/dl (6-23); Calcium 7.7 mg/dl (8.6-10.3); Carbon Dioxide 27.0 mmol/L (21-32); Chloride 99.0 mmol/L (98-107); Creatinine Clr Calc Pharmacy 81.3 ml/min; Glucose 112.0 mg/dl (70-99(Fasting)); Magnesium 2.0 mg/dl (1.7-2.4); Potassium 4.2 mmol/L (3.5-5.1); Sodium 131.0 mmol/L (136-145); Total Protein 5.9 gm/dl (6.0-8.3)
[2024-12-02 05:16] LABS: ALC (manual) 1.93 K/uL (1.2-3.4); ANC (manual) 3.35 K/uL (1.4-6.5); Hematocrit (blood only) 27.0 % (37.0-47.0); Hemoglobin 9.4 g/dl (12.0-16.0); Large Granular Lymph # (manua 0.85 K/uL; Large Granular Lymph % (manual) 15 %; Mean Corpuscular Hemoglobin 29.9 pg (25.0-34.0); Mean Corpuscular Volume 86.0 fL (80.0-100.0); Platelet Count 137 K/uL (130-400); Polychromasia 1+; RDW Standard Deviation 43.3 fL (36.4-46.3); Red Blood Count 3.14 M/uL (4.20-5.40); White Blood Count 5.68 K/ul (4.8-10.8)
--- NOTE | 2024-12-02 06:46 | Hospitalist Progress Note ---
Date of Service December 02, 2024 Assessment & Plan (1) Thrombocytopenia: (2) Acute hypotension: (3) Acute hyponatremia: (4) Babesiosis: (5) Transaminitis: (6) Hyponatremia: (7) Hypotension: Plan Patient is an 83-year-old female with past medical history of GERD, she is otherwise healthy and walks 10,000 steps per day. Patient presented after referral by PCP for fevers, chills, body aches, dark urine since Sunday. 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 Patient also noted that she slipped and fell onto her back approximately 3 weeks ago and was found to have a T11 and L2 compression fracture which she has been following with orthospine for. #Atrial Fibrillation - Went to Afib at 22:00 on 11/29. Switch to oral Amiodarone today - TTE reveals EF 55-80%; Mild to Moderate MR, Mild to Moderate TR, RVSP elevated at 40-50mm Hg and mildly dilated IV - Cardiology on board. Appreciate Cardiology Recommendations - Continue Heparin drip. Anticoagulation initially on hold due to low platelets. Platelet count seems to be improving #Increased O2 requirement -Likely 2/2 to Babesiosis -O2 requirement 2l/min -Chest Xray with increased pulmonary markings in both lungs, and bilateral lower zone haziness suggesting edema -Lasix 10mg IV daily -Continue the same course today #Babesiosis #Tick borne illness -Test positive for Babesia - On Atovaquone and Azithromycin -Tylenol 1000mg QID scheduled -Anaplasma and Lyme negative. However it does not rule out the presence of disease. PCR for Lyme and Anaplasma is pending -ID on board. Talked with ID on phone 11/29. Recommended Doxycycline. Continue IV Doxycycline -Parasitemia percent(11/30): 2-4.9% which is similar to 11/28. Remain on increased dose of Azithromycin to 500mg Iv daily -Will monitor parasite percent daily as per ID. No parasites detected on parasite smear today. #Hypotension -BP improved -Continue Midodrine and Phenylephrine -Downgrade to Med Surg with Telemetry given BP has been stable off pressors #Hyponatremia -Sodium:131 -Repleted according to ICU electrolyte protocol -Monitor BMP tomorrow AM #Transaminitis -Likely 2/2 to Babesiosis -liver enzymes improving -Monitor CMP daily #Fall/T11 compression fracture/L2 compression fracture - - S/p mechanical fall approximately 3 weeks ago, unrelated to above -Patient already following with orthospine. Continue back brace PT/OT evaluation Continue to follow with orthospine in outpatient setting #Endometrial polyp/mass noted on AP CT Follow-up with outpatient [facility] #GERD continue PPI VTE ppx: Heparin Dispo: ICU Admission and Anticipated Discharge Date Admission Date: November 27, 2024 Supervising Physician Co-Signing Physician Notes I personally examined the patient and verified all white points of history and exam, discussed case, and agree with decision making with Dr Kincaid Feeling a little bit dizzy. Poor appetite. Did have a bowel movement today. Feels dizzy when if she is uprightbut in discussion with nursing she is actually very stable, just weak but does well with encouragement. Vitals noted, in general she is awake and alert pleasant fatigued no distress. HEENT normocephalic atraumatic mucous membranes moist. Breathing unlabored no accessory muscle use good effort. Skin without rashes pallor or icterus. Neuro without focal deficits. Sepsis present on admission, due to Babesiosis, concern on concomitant anaplasmosiscontinue Zithromax/atovaquone, continue doxycycline. continue to encourage better p.o. intake. atrial fibrillationrate controlled. Appreciate cardiology assistance. Constipation gentle bowel regimen. did have BM today Otherwise as above Subjective No any overnight events. She reports she is feeling dizzy, nauseated . Had one episode of vomiting after PO Doxycycline. Not had her Bowel Movement since being in the hospital. She still feels bloated Review of Systems Review of Systems: As per HPI Physical Exam Physical Exam: Constitutional: Well appearing, No acute distress, PILCCOD: Negative HEENT: Atraumatic, Normocephalic, No conjunctival injection CVS: S1 S2 no murmur, Regular Rhythm, no LE edema Respiratory: BL equal air entry with NVBS. No rhonchi, wheezes, or crackles. No increased work of breathing GI: Soft, Nondistended, Nontender, Normal Bowel sounds + MSK: B/L lower extremities edematous, swelling of hand(left>right) Skin: Warm, Dry, No rashes Neuro: Alert, Oriented to TPP, No Focal deficit Psych: Mood and Affect congruent, Cooperative on exam Results & Data Results & Data Vital Signs (Past 12 Hours) Vital Signs Temp Pulse Resp BP Pulse Ox O2 Del Method O2 Flow Rate 12/02/24 00:09 37.4 C 56 L 23 95 12/01/24 23:00 11412/01/24 23:00 11412/01/24 23:00 11412/01/24 23:00 11412/01/24 23:00 12/01/24 23:00 12/01/24 23:00 12/01/24 23:00 11412/01/24 23:00 11412/01/24 23:00 37.2 C 57 L 24 95 12/01/24 22:00 37.4 C 56 L 21 96 12/01/24 21:06 37.4 C 56 L 21 94 12/01/24 20:03 37.6 C H 59 L 23 94 12/01/24 20:00 93/56 L 12/01/24 20:00 93/56 L 12/01/24 20:00 93/56 L 12/01/24 20:00 Nasal Cannula 2 12/01/24 19:57 37.6 C H 59 L 32 H 94 12/01/24 19:03 37.9 C H 58 L 29 H 94 12/01/24 19:00 96/55 L 12/01/24 19:00 96/55 L 12/01/24 18:54 38.0 C H 58 L 25 H 93 Resident Activity Tracking Resident Involvement: Resident Care Provided Care Provided: Adult Hospital Medicine (7) Hypotension Hypotension type: unspecified hypotension type Qualified Code(s): I95.9 - Hypotension, unspecified
[2024-12-02] MEDS: AMIODARONE 200 MG TAB PO SCH (09:07)
[2024-12-02] MEDS: POT PHOSPHATE MONOBASIC W/ SOD TAB PO SCH (09:08)
[2024-12-02] MEDS ORDERED: POLYETHYLENE (MIRALAX) 17 GM PACK PO PRN (09:14)
[2024-12-02] MEDS: POLYETHYLENE (MIRALAX) 17 GM PACK PO SCH ×2 (09:14→20:50)
--- NOTE | 2024-12-02 10:07 | Critical Care Progress Note ---
Date of Service December 02, 2024 Assessment & Plan (1) Babesiosis: (2) Hyponatremia: (3) Hypotension: (4) Compression fracture of T11 vertebra: (5) Anemia: (6) Thrombocytopenia: Plan Impression: 83-year-old female admitted with probable babesiosis transferred to the ICU due to hypotension. She has thrombocytopenia and anemia. 24-hour events: Off vasoactive's as of approximately 7 AM this morning Recommendations: 1. Neurologic: Patient is neurologically intact. No acute issues. Continue to follow clinically. She has received oxycodone for pain due to her vertebral fractures. 2. Cardiovascular: A-fib with hypotension. Echocardiogram showed normal LV systolic function with moderate MR and moderate TR with an elevated right ventricular systolic pressure in the 40-50 range with mild dilatation of the inferior vena cava. Continue amiodarone for now per cardiology. Would consider beta-manny once the patient's blood pressure allows. Could consider discontinuation of amiodarone for QT interval considerations given necessity of anti-infective medications 3. Pulmonary: No current issues. Continue to follow clinically. 4. GI: Transaminitis improving and stable 5. ID: Babesiosis. ID consultation reviewed. On atovaquone and azithromycin. Suspect she will continue to have some degree of cyclical fevers. Consider transition to oral medications once afebrile 6. Heme-onc: Risk for hemolytic anemia. Haptoglobin pending but LDH elevated and likely some degree of hemolysis, however H&H remains stable 7. Renal: At risk for renal insufficiency due to hemolysis; however, patient has remained stable. Discontinued Lasix recently would reconsider reinitiation in 24 hours 8. Endocrine: Blood sugars in acceptable range Stable for downgrade out of ICU Admission and Anticipated Discharge Date Admission Date: November 27, 2024 Subjective Off pressors since midnight. Feels slightly dizzy today however generally better than on admission Physical Exam Physical Exam: General: Alert. nontoxic. Skin: Warm, dry, Head: Atraumatic Ears, nose, mouth and throat: airway patent Cardiovascular: Normal peripheral perfusion Respiratory: no respiratory distress Gastrointestinal: Non distended Musculoskeletal: No deformity Results & Data Results & Data Vital Signs (Past 12 Hours) Vital Signs Temp Pulse Resp BP Pulse Ox O2 Del Method O2 Flow Rate 12/02/24 09:00 103/64 12/02/24 09:00 38.2 C H 71 26 H 94 12/02/24 08:00 118/66 12/02/24 08:00 38.2 C H 65 24 95 12/02/24 08:00 Nasal Cannula 2 12/02/24 07:00 38.3 C H 68 23 95 12/02/24 07:00 118/68 12/02/24 00:09 37.4 C 56 L 23 95 12/01/24 23:00 11412/01/24 23:00 11412/01/24 23:00 11412/01/24 23:00 11412/01/24 23:00 11412/01/24 23:00 11412/01/24 23:00 11412/01/24 23:00 11412/01/24 23:00 11412/01/24 23:00 37.2 C 57 L 24 95 Critical Care Results & Data Vital Signs (Past 12 Hours) Vital Signs Temp Pulse Resp BP Pulse Ox O2 Del Method O2 Flow Rate 12/02/24 12:06 38.2 C H 63 23 98 12/02/24 12:00 123/67 12/02/24 11:57 38.2 C H 63 28 H 96 12/02/24 11:29 121/74 12/02/24 11:18 38.2 C H 73 25 H 96 12/02/24 11:12 38.1 C H 68 22 97 12/02/24 10:06 38.2 C H 69 22 95 12/02/24 10:00 113/77 12/02/24 09:54 96 12/02/24 09:00 103/64 12/02/24 09:00 38.2 C H 71 26 H 94 12/02/24 08:00 118/66 12/02/24 08:00 38.2 C H 65 24 95 12/02/24 08:00 Nasal Cannula 2 12/02/24 07:00 38.3 C H 68 23 95 12/02/24 07:00 118/68 Lab & Micro Results (Past 24 Hours) RBC 3.14 M/uL (4.20-5.40) L 12/02/24 WBC 5.68 K/ul (4.8-10.8) 12/02/24 Hgb 9.4 g/dl (12.0-16.0) L 12/02/24 Hct 27.0 % (37.0-47.0) L 12/02/24 MCV 86.0 fL (80.0-100.0) 12/02/24 MCH 29.9 pg (25.0-34.0) 12/02/24 MCHC 34.8 g/dL (32.0-36.0) 12/02/24 RDW Standard Deviation 43.3 fL (36.4-46.3) 12/02/24 RDW Coefficient of Variation 13.8 % (11.5-14.5) 12/02/24 Plt Count 137 K/uL (130-400) 12/02/24 MPV 11.8 fL (9.4-12.4) 12/02/24 Nucleated Red Blood Cells % (auto) 0.7 % 12/02 Nucleated RBC Absolute Count (auto) 0.04 K/uL (0.00-0.12) 0 12/02/24 ANC 3.35 K/uL (1.4-6.5) 12/02/24 ALC 1.93 K/uL (1.2-3.4) 12/02/24 Neutrophils % (Manual) 59 % 12/02/24 Lymphocytes % (Manual) 19 % 12/02/24 Large Granular Lymphocytes 15 % 12/02/24 Monocytes % (Manual) 7 % 12/02/24 Neutrophils # (Manual) 3.35 K/uL (1.40-6.50) 12/02/24 Lymphocytes # (Manual) 1.08 K/uL (1.2-3.4) L 12/02/24 Absolute Large Granular Lymphocytes 0.85 K/uL 06/28 Monocytes # (Manual) 0.40 K/uL (0.11-0.59) 12/02/24 Polychromasia 1+ 12/02/24 Na 131 mmol/L (136-145) L 12/02/24 K 4.2 mmol/L (3.5-5.1) 12/02/24 Cl 99 mmol/L (98-107) 12/02/24 CO2 27 mmol/L (21-32) 12/02/24 Anion Gap 5 (3-11) 12/02/24 BUN 10 mg/dl (6-23) 12/02/24 Creatinine 0.50 mg/dl (0.6-1.2) L 12/02/24 BUN/Creatinine Ratio 20.0 (10-20) 12/02/24 Glu 112 mg/dl (70-99(Fasting)) H 12/02/24 Ca 7.7 mg/dl (8.6-10.3) L 12/02/24 Phosphorus Level 2.4 mg/dl (2.5-4.9) L 12/02/24 Total Bilirubin 2.0 mg/dl (0.2-1.0) H 12/02/24 Direct Bilirubin 0.6 mg/dl (0-0.2) H 12/02/24 AST 80 U/L (13-39) H 12/02/24 ALT 33 U/L (7-52) 12/02/24 Alkaline Phosphatase 110 U/L (34-104) H 12/02/24 TP 5.9 gm/dl (6.0-8.3) L 12/02/24 Albumin 2.4 gm/dl (3.4-5.0) L 12/02/24 Mg 2.0 mg/dl (1.7-2.4) 12/02/24 04:06 Calcium Level 7.7 mg/dl (8.6-10.3) L 12/02/24 04:06 Microbiology 12/02/24 08:39 Blood Parasites Smear - Preliminary Blood I & O Totals 24 Hours 12/01/24 12/02/24 12/03/24 06:59 06:59 06:59 Intake Total 2658.989 / 2658.989 2239.117 / 2239.117 1152.22 / 1152.22 Output Total 3700 / 3700 1240 / 1240 Balance -1041.011 / -1041.011 999.117 / 826.620 6025.22 / 1152.22 Cumulative 11/27/24 11:24 thru 12/02/24 12:00 Intake Total 50769.301 Output Total 7540 Balance 9306.301 RT Ventilator Mngmt (Last Documented) Ventilator Ordered Settings Respiratory Rate 23 12/02/24 12:06 Ventilator - PT Measurements Respiratory Rate 23 Coding Level of Care Code 91314 SUB INP/OBS CARE 2/35MIN Diagnoses Babesiosis B60.00 Hyponatremia E87.1 Hypotension, unspecified hypotension type I95.9 Hypotension type: unspecified hypotension type Compression fracture of T11 vertebra S22.080A Anemia D64.9 Thrombocytopenia D69.6 (3) Hypotension Hypotension type: unspecified hypotension type Qualified Code(s): I95.9 - Hypotension, unspecified
[2024-12-02] MEDS: DOCUSATE SODIUM 100 MG CAP PO SCH (10:43)
--- NOTE | 2024-12-02 14:39 | Electrocardiogram Report ---
Test Reason : Blood Pressure : */* mmHG Vent. Rate : 55 BPM Atrial Rate : 55 BPM P-R Int : 178 ms QRS Dur : 90 ms QT Int : 502 ms P-R-T Axes : 45 44 41 degrees QTcB Int : 480 ms Sinus bradycardia Low voltage QRS QTcB >= 480 msec Abnormal ECG When compared with ECG of 28-Nov-2024 06:34, Sinus rhythm has replaced Atrial fibrillation Vent. rate has decreased by 49 bpm Confirmed by Cirilo Barahona ([id number]) on 12/02/2024 2:39:32 PM Referred By: REFERRED SELF Confirmed By: Cirilo Barahona
--- NOTE | 2024-12-02 16:54 | Billing Data ---
Date of Service December 02, 2024 Coding Level of Care Code 95706 SUB INP/OBS CARE MIN
--- NOTE | 2024-12-02 16:59 | Billing Data ---
Date of Service December 02, 2024 Coding Level of Care Code 86423 SUB INP/OBS CARE MIN
[2024-12-03 06:57] LABS: Hematocrit (blood only) 23.9 % (37.0-47.0); Hemoglobin 8.3 g/dl (12.0-16.0); Mean Corpuscular Hemoglobin 30.2 pg (25.0-34.0); Mean Corpuscular Volume 86.9 fL (80.0-100.0); Platelet Count 159 K/uL (130-400); RDW Standard Deviation 43.9 fL (36.4-46.3); Red Blood Count 2.75 M/uL (4.20-5.40); White Blood Count 5.05 K/ul (4.8-10.8)
[2024-12-03 07:20] LABS: ANTI-Xa, UFH(UnfractionatedHep 0.43 IU/ml (0.3-0.7)
[2024-12-03 07:22] LABS: Alanine Aminotransferase 43.0 U/L (7-52); Albumin Globulin Ratio 0.7 (0.9-2); Alkaline Phosphatase 104.0 U/L (34-104); Anion Gap 3.0 (3-11); Bilirubin,Total 2.0 mg/dl (0.2-1.0); Blood Urea Nitrogen 12.0 mg/dl (6-23); Calcium 7.6 mg/dl (8.6-10.3); Carbon Dioxide 31.0 mmol/L (21-32); Chloride 100.0 mmol/L (98-107); Creatinine Clr Calc Pharmacy 64.7 ml/min; Globulin 3.3 gm/dl (2.5-4.0); Glucose 103.0 mg/dl (70-99(Fasting)); Magnesium 2.2 mg/dl (1.7-2.4); Potassium 3.9 mmol/L (3.5-5.1); Sodium 134.0 mmol/L (136-145); Total Protein 5.7 gm/dl (6.0-8.3)
[2024-12-03] MEDS: SENNA 8.6 MG TAB PO SCH (07:40)
--- NOTE | 2024-12-03 07:59 | Hospitalist Progress Note ---
Date of Service December 03, 2024 Assessment & Plan (1) Thrombocytopenia: (2) Acute hypotension: (3) Acute hyponatremia: (4) Babesiosis: (5) Transaminitis: (6) Hyponatremia: (7) Hypotension: Plan Patient is an 83-year-old female with past medical history of GERD, she is otherwise healthy and walks 10,000 steps per day. Patient presented after referral by PCP for fevers, chills, body aches, dark urine since Sunday. 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 Patient also noted that she slipped and fell onto her back approximately 3 weeks ago and was found to have a T11 and L2 compression fracture which she has been following with orthospine for. #Atrial Fibrillation - Went to Afib at 22:00 on 11/29. On oral Amiodarone - TTE reveals EF 55-80%; Mild to Moderate MR, Mild to Moderate TR, RVSP elevated at 40-50mm Hg and mildly dilated IV - Cardiology on board. Appreciate Cardiology Recommendations - Continue Heparin drip. Anticoagulation initially on hold due to low platelets. Platelet count seems to be improving #Increased O2 requirement -Likely 2/2 to Babesiosis - On RA -Chest Xray with increased pulmonary markings in both lungs, and bilateral lower zone haziness suggesting edema -Lasix 10mg IV daily -Continue the same course today #Babesiosis #Tick borne illness -Test positive for Babesia - On Atovaquone and Azithromycin -Tylenol 1000mg QID scheduled -Anaplasma and Lyme negative. However it does not rule out the presence of disease. PCR for Lyme and Anaplasma is pending -ID on board. Anaplasma came back negative. Discontinue Doxycycline - Remain on increased dose of Azithromycin to 500mg Iv daily -No parasites detected on parasite smear (12/02) #Hypotension -BP improved -Continue Midodrine and Phenylephrine -Downgrade to Med Surg with Telemetry given BP has been stable off pressors #Hyponatremia -Sodium:131 -Repleted according to ICU electrolyte protocol -Monitor BMP tomorrow AM #Transaminitis -Likely 2/2 to Babesiosis -liver enzymes improving -Monitor CMP daily #Fall/T11 compression fracture/L2 compression fracture - - S/p mechanical fall approximately 3 weeks ago, unrelated to above -Patient already following with orthospine. Continue back brace PT/OT evaluation Continue to follow with orthospine in outpatient setting #Endometrial polyp/mass noted on AP CT Follow-up with outpatient [facility] #GERD continue PPI VTE ppx: Heparin Dispo: ICU Admission and Anticipated Discharge Date Admission Date: November 27, 2024 Supervising Physician Co-Signing Physician Notes I personally examined the patient and verified all white points of history and exam, discussed case, and agree with decision making with Dr Kincaid Feeling better and stronger. Doing better overall. Did better with therapy . Vitals noted, in general she is awake and alert pleasant fatigued no distress. HEENT normocephalic atraumatic mucous membranes moist. Breathing unlabored no accessory muscle use good effort. Skin without rashes pallor or icterus. Neuro without focal deficits. Sepsis present on admission, due to Babesiosis - With symptoms all explainable by babesiosis, and with Anaplasma PCR negativeagree with discontinuation of doxycycline. Obviously, if she were to have any recurrent fevers in the next few days to a week the first thought would be to resume Doxy, but I strongly suspect this was entirely babesiosis. She is improving nicely. Hopefully to rehab as soon as bed is available. atrial fibrillationrate controlled. On amiodarone for now, on Eliquis Constipation gentle bowel regimen. Otherwise as above, for rehab once bed is available. Safe/stable for medical. Subjective She reports she is feeling a lot better than yesterday. Her appetite is improved. She had her Bowel Movement. Feels less bloated than yesterday Review of Systems Review of Systems: As per HPI Physical Exam Physical Exam: Constitutional: Well appearing, No acute distress, PILCCOD: Negative HEENT: Atraumatic, Normocephalic, No conjunctival injection CVS: S1 S2 no murmur, Regular Rhythm, no LE edema Respiratory: BL equal air entry with NVBS. No rhonchi, wheezes, or crackles. No increased work of breathing GI: Soft, Nondistended, Nontender, Normal Bowel sounds + MSK: B/L lower extremities edematous, swelling of hand(left>right) Skin: Warm, Dry, No rashes Neuro: Alert, Oriented to TPP, No Focal deficit Psych: Mood and Affect congruent, Cooperative on exam Results & Data Results & Data Vital Signs (Past 12 Hours) Vital Signs Temp Pulse Pulse Resp BP BP Pulse Ox 12/03/24 07:47 12/03/24 06:57 36.7 C 67 18 108/66 95 12/03/24 03:24 36.5 C 61 16 114/71 97 12/02/24 23:29 36.9 C 62 18 137/80 96 12/02/24 21:42 55 L 12/02/24 20:05 36.7 C 58 L 18 128/73 96 12/02/24 20:00 O2 Del Method O2 Flow Rate 12/03/24 07:47 Nasal Cannula 3 12/03/24 06:57 Nasal Cannula 2 12/03/24 03:24 Nasal Cannula 1 12/02/24 23:29 Nasal Cannula 1 12/02/24 21:42 12/02/24 20:05 Room Air 12/02/24 20:00 Nasal Cannula 2 (7) Hypotension Hypotension type: unspecified hypotension type Qualified Code(s): I95.9 - Hypotension, unspecified
[2024-12-03 08:00] LABS: Immature Granulocytes # (auto) 0.03 K/uL (0.01-0.20); Immature Granulocytes % (auto) 0.6 %; Polychromasia 1+
--- NOTE | 2024-12-03 10:46 | Infectious Disease Progress Nt ---
Date of Service December 03, 2024 Assessment & Plan (1) Thrombocytopenia: (2) Babesiosis: (3) Sepsis: (4) Compression fracture of T11 vertebra: Plan ID Problem List: # Babesiosis # Fevers # Thrombocytopenia # Recent fall 3 weeks prior, T11/L2 compression fractures Impression: Tere Lutz is an 83-year-old woman with history of T11 and L2 compression fracture, glaucoma, TMJ, IBS, who presents to [facility] ED on 11/27/24 for weakness and fevers up to 104F, found to have a positive Babesia smear. ID is consulted for babesiosis. The patient slipped and fell on her back 3 weeks ago, resulting in T11 and L2 compression fractures and she has been wearing a brace. Prior her fall, she has been healthy, independent in ADLs, and walks 10k steps a day. She has been feeling unwell since 11/23, and experiencing dark urine, chills, and generalized body aches. Starting on Sunday 11/26, her daughter measured her temperature and noted that she was having high fevers up to 104F, that would then mayito by the evening. She has continued to have fevers and chills since that time, as well as weakness making it hard for her to get out of bed. She denied cough/congestion/rhinorrhea, headaches, vision changes, chest pain, shortness of breath, n/v/d, dysuria. In the ED, Tmax on 11/27 of 39C, hypotensive with SBPs to 70s that improved with IV fluids, WBC 4.3 Hgb plt 46 AST 78 ALT 48 tbili 2.3 procal 3.6. UA neg for LE/nitrites (no microscopy done). 11/27 CXR without acute findings. 11/27 CT A/P showing T11 and L2 compression fractures, increased spleen size, small endometrial polyp/mass, no other acute findings. 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 She was given pip-tazo in the ED which was discontinued. She was then treated with azithromycin and atovaquone. On 11/28, Tmax 37.9, WBC 4.77 plt 56, AST 63 ALT 36 alk phos 123 tbili 1.6 LDH 443. At the time of evaluation, her daughter is at bedside. She is still ex periencing intermittent fevers and chills in cycles. She has generalized weakness and body aches, with pain especially in her thighs and hip muscles. She does not recall any tick bites, but [place] and frequently walks outdoors and does gardening/yardwork. She notes there are often deer in her yard. Discussion The patient presents with high fevers and chills, found to have thrombocytopenia, elevated transaminases, CT A/P with increased spleen, and found to have a positive blood smear for Babesia, and Babesia PCR positive. Lyme screen negative. Was started on doxycycline on 11/30 in case of Anaplasma coinfection, but Anaplasma PCR returned negative. 11/28, 11/29, 11/30 smears with 2-4.9% parasitemia. Azithromycin dose increased from 250 to 500 mg IV daily on 11/29 for treatment of severe disease. QTc 480 on 12/01. O2 requirement increased to 5 L overnight on 11/30, now down to 2-3 L NC. Thrombocytopenia improving. She is not known to be immunocompromised but given her older age she is at higher risk for severe disease. Recommendations: - Continue treatment with azithromycin 500 mg IV daily and atovaquone 750 mg PO q12h. Anticipate transitioning to PO antibiotics as pt continues to improve. Ensure atovaquone is taken with a fatty meal for better absorption. - Discontinued doxycycline given negative Anaplasma PCR - Continue to trend CBC w/ diff and CMP - Can repeat Lyme screen in 2-4 weeks - Ensure close follow-up with PCP ID will continue to follow. Please contact us with any questions. Admission and Anticipated Discharge Date Admission Date: November 27, 2024 Subjective This patient recommendation is based on a telemedicine consult request which was completed asynchronously through chart review and information provided by the primary physician. The patient was not seen or examined today. The evaluation is consultative in nature and all patient care and treatment decisions can either be accepted or rejected by the patient's primary hospital-based treating physician using their own independent medical judgment for their patient. Time Spent Reviewing Chart: 11 - 20 minutes Afebrile overnight Plts improving Appetite improving Results & Data Vital Signs (Past 12 Hours) Vital Signs Temp Pulse Pulse Resp BP BP Pulse Ox 12/03/24 08:00 59 L 12/03/24 07:47 12/03/24 06:57 36.7 C 67 18 108/66 95 12/03/24 03:24 36.5 C 61 16 114/71 97 12/02/24 23:29 36.9 C 62 18 137/80 96 O2 Del Method O2 Flow Rate 12/03/24 08:00 12/03/24 07:47 Nasal Cannula 3 12/03/24 06:57 Nasal Cannula 2 12/03/24 03:24 Nasal Cannula 1 12/02/24 23:29 Nasal Cannula 1 Laboratory Results Short CBC 12/03/24 Range/Units 06:05 WBC 5.05 (4.8-10.8) K/ul Hgb 8.3 L (12.0-16.0) g/dl Hct 23.9 L (37.0-47.0) % Plt Count 159 (130-400) K/uL BMP 12/03/24 06:05 Sodium 134 L Potassium 3.9 Chloride 100 Carbon Dioxide 31 BUN 12 Creatinine 0.65 Glucose 103 H Calcium 7.6 L Liver Function 12/03/24 Range/Units 06:05 Total Bilirubin 2.0 H (0.2-1.0) mg/dl AST 137 H (13-39) U/L ALT 43 (7-52) U/L Alkaline Phosphatase 104 (34-104) U/L Albumin 2.4 L (3.4-5.0) gm/dl Medications Administered Current Inpatient Medications Acetaminophen (Acetaminophen 500 Mg Tab) 1,000 mg PO Q8H PRN PRN Reason: pain Stop: 12/31/24 15:59 Last Admin: 12/02/24 13:44 Dose: 1,000 mg Albuterol (Albuterol 0.083% Nebu Soln 3 Ml Vial) 2.5 mg NEB Q6H PRN; Protocol PRN Reason: Shortness Of Breath Or Wheezing Stop: 12/28/24 21:53 Last Admin: 11/28/24 23:29 Dose: 2.5 mg Amiodarone HCl (Amiodarone 200 Mg Tab) 200 mg PO QAM [facility] Stop: 01/01/25 08:59 Last Admin: 12/03/24 07:41 Dose: 200 mg Atovaquone (Atovaquone 750 Mg/5 Ml Udc) 750 mg PO BID [facility] Stop: 12/27/24 20:59 Last Admin: 12/03/24 07:41 Dose: 750 mg Docusate Sodium (Docusate Sodium 100 Mg Cap) 100 mg PO BID PRN PRN Reason: Constipation Stop: 12/27/24 18:30 Last Admin: 11/29/24 13:11 Dose: 100 mg Docusate Sodium (Docusate Sodium 100 Mg Cap) 100 mg PO BID [facility] Stop: 01/01/25 09:14 Last Admin: 12/03/24 07:40 Dose: Not Given Azithromycin 500 mg/ Dextrose 255 mls @ 125 mls/hr IV Q24H [facility] Stop: 12/06/24 15:59 Last Infusion: 12/02/24 17:09 Dose: Infused Heparin Sodium/Dextrose (Heparin 45345 Unit/500 Ml D5w) 25,000 units in 500 mls @ 21 mls/hr IV .[id number] [facility]; Protocol Stop: 12/30/24 07:44 Last Titration: 12/03/24 10:18 Dose: 1,050 units/hr, 21 mls/hr Latanoprost (Latanoprost 0.005% Op Soln 2.5 Ml Btl) 1 drops OP HS [facility] Stop: 12/27/24 20:59 Last Admin: 12/02/24 20:13 Dose: 1 drops Midodrine (Midodrine Hcl 2.5 Mg Tab) 7.5 mg PO TID@0800,1200,1700 [facility] Stop: 12/30/24 07:59 Last Admin: 12/03/24 07:42 Dose: 7.5 mg Ondansetron HCl (Ondansetron Inj 2 Mg/Ml 2 Ml Vial) 4 mg IV Q6H PRN PRN Reason: Nausea And Vomiting Stop: 12/27/24 18:30 Last Admin: 12/02/24 21:36 Dose: 4 mg Oxycodone HCl (Oxycodone Hcl Ir 5 Mg Tab (Immediate Release)) 5 mg PO Q6 PRN PRN Reason: Severe Pain (Scale 7, 8, 9,10) Stop: 12/11/24 18:30 Last Admin: 11/28/24 19:41 Dose: 5 mg Oxycodone HCl (Oxycodone Hcl Ir 5 Mg Tab (Immediate Release)) 2.5 mg PO Q6 PRN PRN Reason: Moderate Pain (Scale 4, 5, 6) Stop: 12/11/24 18:30 Pantoprazole Sodium (Pantoprazole 40 Mg Tab) 40 mg PO QAM [facility] Stop: 12/28/24 08:59 Last Admin: 12/03/24 07:41 Dose: 40 mg Polyethylene Glycol (Polyethylene (Miralax) 17 Gm Pack) 17 gm PO DAILY PRN PRN Reason: Constipation Stop: 01/01/25 09:13 Polyethylene Glycol (Polyethylene (Miralax) 17 Gm Pack) 17 gm PO BID [facility] Stop: 01/01/25 20:59 Last Admin: 12/03/24 07:40 Dose: Not Given Potassium Phosphate (Pot Phosphate Monobasic W/ Sod Tab) 1 tab PO QID [facility] Stop: 01/01/25 08:59 Last Admin: 12/03/24 07:43 Dose: 1 tab Sennosides (Senna 8.6 Mg Tab) 8.6 mg PO QAM [facility] Stop: 01/02/25 08:59 Last Admin: 12/03/24 07:40 Dose: Not Given Timolol Maleate (Timolol Maleate 0.5% Op Soln 5 Ml Btl) 1 drops OP QAM [facility] Stop: 12/28/24 08:59 Last Admin: 12/03/24 07:41 Dose: 1 drops (3) Sepsis Sepsis acute organ dysfunction status: unspecified Sepsis type: sepsis due to unspecified organism Qualified Code(s): A41.9 - Sepsis, unspecified organism
--- NOTE | 2024-12-03 17:48 | Billing Data ---
Date of Service December 03, 2024 Coding Level of Care Code 32433 SUB INP/OBS CARE
[2024-12-03] MEDS: APIXABAN 5 MG TABLET PO SCH (20:44)
[2024-12-04 06:01] LABS: Hematocrit (blood only) 22.3 % (37.0-47.0); Hemoglobin 7.7 g/dl (12.0-16.0); Mean Corpuscular Hemoglobin 30.6 pg (25.0-34.0); Mean Corpuscular Volume 88.5 fL (80.0-100.0); Platelet Count 190 K/uL (130-400); RDW Standard Deviation 44.6 fL (36.4-46.3); Red Blood Count 2.52 M/uL (4.20-5.40); White Blood Count 4.76 K/ul (4.8-10.8)
[2024-12-04 06:19] LABS: Alanine Aminotransferase 46.0 U/L (7-52); Albumin Globulin Ratio 0.8 (0.9-2); Alkaline Phosphatase 100.0 U/L (34-104); Anion Gap 3.0 (3-11); Bilirubin,Total 1.8 mg/dl (0.2-1.0); Blood Urea Nitrogen 10.0 mg/dl (6-23); Calcium 7.7 mg/dl (8.6-10.3); Carbon Dioxide 31.0 mmol/L (21-32); Chloride 102.0 mmol/L (98-107); Creatinine Clr Calc Pharmacy 65.7 ml/min; Globulin 3.0 gm/dl (2.5-4.0); Glucose 98.0 mg/dl (70-99(Fasting)); Potassium 3.9 mmol/L (3.5-5.1); Sodium 136.0 mmol/L (136-145); Total Protein 5.5 gm/dl (6.0-8.3)
[2024-12-04 06:57] LABS: ALC (manual) 2.05 K/uL (1.2-3.4); ANC (manual) 2.19 K/uL (1.4-6.5); Polychromasia 1+; Reactive Lymphocytes # (manual) 0.62 K/uL; Reactive Lymphocytes % (manual) 13 %
--- NOTE | 2024-12-04 07:34 | Hospitalist Progress Note ---
Date of Service December 04, 2024 Assessment & Plan (1) Thrombocytopenia: (2) Acute hypotension: (3) Acute hyponatremia: (4) Babesiosis: (5) Transaminitis: (6) Hyponatremia: (7) Hypotension: Plan Patient is an 83-year-old female with past medical history of GERD, she is otherwise healthy and walks 10,000 steps per day. Patient presented after referral by PCP for fevers, chills, body aches, dark urine since Sunday. 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 Patient also noted that she slipped and fell onto her back approximately 3 weeks ago and was found to have a T11 and L2 compression fracture which she has been following with orthospine for. #Atrial Fibrillation - Went to Afib at 22:00 on 11/29. On oral Amiodarone - TTE reveals EF 55-80%; Mild to Moderate MR, Mild to Moderate TR, RVSP elevated at 40-50mm Hg and mildly dilated IV - Started on eliquis #Increased O2 requirement -Likely 2/2 to Babesiosis - On RA -Chest Xray with increased pulmonary markings in both lungs, and bilateral lower zone haziness suggesting edema -Lasix 10mg IV daily -Continue the same course today #Babesiosis #Tick borne illness -Test positive for Babesia - On Atovaquone and Azithromycin -Tylenol 1000mg QID scheduled -Anaplasma and Lyme negative. However it does not rule out the presence of disease. PCR for Lyme and Anaplasma is pending -ID on board. Anaplasma came back negative. Discontinue Doxycycline - Switch to Azithromycin 500mg PO daily -No parasites detected on parasite smear (12/02) #Hypotension -BP improved -Downgrade to Med Surg with Telemetry given BP has been stable off pressors #Hyponatremia -Sodium:131 -Repleted according to ICU electrolyte protocol -Monitor BMP tomorrow AM #Transaminitis -Likely 2/2 to Babesiosis -liver enzymes improving -Monitor CMP daily #Fall/T11 compression fracture/L2 compression fracture - - S/p mechanical fall approximately 3 weeks ago, unrelated to above -Patient already following with orthospine. Continue back brace PT/OT evaluation Continue to follow with orthospine in outpatient setting #Endometrial polyp/mass noted on AP CT Follow-up with outpatient [facility] #GERD continue PPI VTE ppx: On Eliquis Dispo: ICU Admission and Anticipated Discharge Date Admission Date: November 27, 2024 Supervising Physician Co-Signing Physician Notes I personally examined the patient and verified all white points of history and exam, discussed case, and agree with decision making with Dr Kincaid Feeling about the same. Better than before, but still definitely not close to baseline. Still feels weak. Is trying to eat betterfor breakfast ate a piece of toast, piece of ibrahim and a yogurt. Vitals noted, in general she is awake and alert pleasant fatigued no distress. HEENT normocephalic atraumatic mucous membranes moist. Breathing unlabored no accessory muscle use good effort. Skin without rashes pallor or icterus. Neuro without focal deficits. Sepsis present on admission, due to Babesiosis - With symptoms all explainable by babesiosis, and with Anaplasma PCR negativeagree with discontinuation of doxycycline. Obviously, if she were to have any recurrent fevers in the next few days to a week the first thought would be to resume Doxy, but I strongly suspect this was entirely babesiosis. Continue azithromycin and atovaquone. atrial fibrillationrate controlled. On amiodarone for now, on Eliquis Constipation gentle bowel regimen. Having bowel movements Otherwise as above, for rehab once bed is available. Subjective Feel better. Appetite is improving. Remains Afebrile . On RA Review of Systems Review of Systems: As per HPI Physical Exam Physical Exam: Constitutional: Well appearing, No acute distress, PILCCOD: Negative HEENT: Atraumatic, Normocephalic, No conjunctival injection CVS: S1 S2 no murmur, Regular Rhythm, no LE edema Respiratory: BL equal air entry with NVBS. No rhonchi, wheezes, or crackles. No increased work of breathing GI: Soft, Nondistended, Nontender, Normal Bowel sounds + MSK: B/L lower extremities edematous, swelling of hand(left>right) Skin: Warm, Dry, No rashes Neuro: Alert, Oriented to TPP, No Focal deficit Psych: Mood and Affect congruent, Cooperative on exam Results & Data Results & Data Vital Signs (Past 12 Hours) Vital Signs Temp Pulse Resp BP Pulse Ox O2 Del Method O2 Flow Rate 12/04/24 07:23 36.5 C 58 L 16 103/62 96 Nasal Cannula 2 12/03/24 20:45 Nasal Cannula 2 12/03/24 20:16 36.5 C 57 L 20 122/65 95 Nasal Cannula 2 (7) Hypotension Hypotension type: unspecified hypotension type Qualified Code(s): I95.9 - Hypotension, unspecified
--- NOTE | 2024-12-04 09:13 | Infectious Disease Progress Nt ---
Date of Service December 04, 2024 Assessment & Plan (1) Thrombocytopenia: (2) Babesiosis: (3) Sepsis: (4) Compression fracture of T11 vertebra: Plan ID Problem List: # Babesiosis # Fevers: resolved # Thrombocytopenia: resolved # Recent fall 3 weeks prior, T11/L2 compression fractures Impression: Tere Lutz is an 83-year-old woman with history of T11 and L2 compression fracture, glaucoma, TMJ, IBS, who presents to [facility] ED on 11/27/24 for weakness and fevers up to 104F, found to have a positive Babesia smear. ID is consulted for babesiosis. The patient slipped and fell on her back 3 weeks ago, resulting in T11 and L2 compression fractures and she has been wearing a brace. Prior her fall, she has been healthy, independent in ADLs, and walks 10k steps a day. She has been feeling unwell since 11/23, and experiencing dark urine, chills, and generalized body aches. Starting on Sunday 11/26, her daughter measured her temperature and noted that she was having high fevers up to 104F, that would then mayito by the evening. She has continued to have fevers and chills since that time, as well as weakness making it hard for her to get out of bed. She denied cough/congestion/rhinorrhea, headaches, vision changes, chest pain, shortness of breath, n/v/d, dysuria. In the ED, Tmax on 11/27 of 39C, hypotensive with SBPs to 70s that improved with IV fluids, WBC 4.3 Hgb plt 46 AST 78 ALT 48 tbili 2.3 procal 3.6. UA neg for LE/nitrites (no microscopy done). 11/27 CXR without acute findings. 11/27 CT A/P showing T11 and L2 compression fractures, increased spleen size, small endometrial polyp/mass, no other acute findings. 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 She was given pip-tazo in the ED which was discontinued. She was then treated with azithromycin and atovaquone. On 11/28, Tmax 37.9, WBC 4.77 plt 56, AST 63 ALT 36 alk phos 123 tbili 1.6 LDH 443. At the time of evaluation, her daughter is at bedside. She is still experiencing intermittent fevers and chills in cycles. She has generalized weakness and body aches, with pain especially in her thighs and hip muscles. She does not recall any tick bites, but [place] and frequently walks outdoors and does gardening/yardwork. She notes there are often deer in her yard. Discussion The patient presents with high fevers and chills, found to have thrombocytopenia, elevated transaminases, CT A/P with increased spleen, and found to have a positive blood smear for Babesia, and Babesia PCR positive. Lyme screen negative. Was started on doxycycline on 11/30 in case of Anaplasma coinfection, but Anaplasma PCR returned negative. 11/28, 11/29, 11/30 smears with 2-4.9% parasitemia. Azithromycin dose increased from 250 to 500 mg IV daily on 11/29 for treatment of severe disease. QTc 480 on 12/01. O2 requirement increased to 5 L overnight on 11/30, now down to 2-3 L NC. Thrombocytopenia improving. She is not known to be immunocompromised but given her older age she is at higher risk for severe disease. A repeat blood smear on 12/02 showed no parasites. Recommendations: - Given clinical improvement, will step down to azithromycin 500 mg PO daily plus atovaquone 750 mg PO q12h. Can complete a total 10 day course through 12/06/24. Ensure atovaquone is taken with a fatty meal for better absorption. - Can repeat Lyme screen in 2-4 weeks - Ensure close follow-up with PCP Will sign off. Admission and Anticipated Discharge Date Admission Date: November 27, 2024 Subjective This patient recommendation is based on a telemedicine consult request which was completed asynchronously through chart review and information provided by the primary physician. The patient was not seen or examined today. The evaluation is consultative in nature and all patient care and treatment decisions can either be accepted or rejected by the patient's primary hospital-based treating physician using their own independent medical judgment for their patient. Time Spent Reviewing Chart: 11 - 20 minutes Afebrile Plts continue to improve On 2 L NC Results & Data Vital Signs (Past 12 Hours) Vital Signs Temp Pulse Resp BP Pulse Ox O2 Del Method O2 Flow Rate 12/04/24 07:23 36.5 C 58 L 16 103/62 96 Nasal Cannula 2 Laboratory Results Short CBC 12/04/24 Range/Units 05:45 WBC 4.76 L (4.8-10.8) K/ul Hgb 7.7 L (12.0-16.0) g/dl Hct 22.3 L (37.0-47.0) % Plt Count 190 (130-400) K/uL BMP 12/04/24 05:45 Sodium 136 Potassium 3.9 Chloride 102 Carbon Dioxide 31 BUN 10 Creatinine 0.64 Glucose 98 Calcium 7.7 L Liver Function 12/04/24 Range/Units 05:45 Total Bilirubin 1.8 H (0.2-1.0) mg/dl AST 142 H (13-39) U/L ALT 46 (7-52) U/L Alkaline Phosphatase 100 (34-104) U/L Albumin 2.5 L (3.4-5.0) gm/dl Medications Administered Current Inpatient Medications Acetaminophen (Acetaminophen 500 Mg Tab) 1,000 mg PO Q8H PRN PRN Reason: pain Stop: 12/31/24 15:59 Last Admin: 12/02/24 13:44 Dose: 1,000 mg Albuterol (Albuterol 0.083% Nebu Soln 3 Ml Vial) 2.5 mg NEB Q6H PRN; Protocol PRN Reason: Shortness Of Breath Or Wheezing Stop: 12/28/24 21:53 Last Admin: 11/28/24 23:29 Dose: 2.5 mg Amiodarone HCl (Amiodarone 200 Mg Tab) 200 mg PO QAM NAVIN Stop: 01/01/25 08:59 Last Admin: 12/04/24 08:52 Dose: Not Given Apixaban (Apixaban 5 Mg Tablet) 5 mg PO BID NAVIN Stop: 01/02/25 20:59 Last Admin: 12/04/24 08:38 Dose: 5 mg Atovaquone (Atovaquone 750 Mg/5 Ml Udc) 750 mg PO BID NAVIN Stop: 12/27/24 20:59 Last Admin: 12/04/24 08:39 Dose: 750 mg Docusate Sodium (Docusate Sodium 100 Mg Cap) 100 mg PO BID PRN PRN Reason: Constipation Stop: 12/27/24 18:30 Last Admin: 11/29/24 13:11 Dose: 100 mg Docusate Sodium (Docusate Sodium 100 Mg Cap) 100 mg PO BID [facility] Stop: 01/01/25 09:14 Last Admin: 12/04/24 08:36 Dose: Not Given Azithromycin 500 mg/ Dextrose 255 mls @ 125 mls/hr IV Q24H [facility] Stop: 12/06/24 15:59 Last Infusion: 12/03/24 18:28 Dose: Infused Latanoprost (Latanoprost 0.005% Op Soln 2.5 Ml Btl) 1 drops OP HS [facility] Stop: 12/27/24 20:59 Last Admin: 12/03/24 20:44 Dose: 1 drops Midodrine (Midodrine Hcl 2.5 Mg Tab) 7.5 mg PO TID@0800,1200,1700 [facility] Stop: 12/30/24 07:59 Last Admin: 12/04/24 08:36 Dose: 7.5 mg Ondansetron HCl (Ondansetron Inj 2 Mg/Ml 2 Ml Vial) 4 mg IV Q6H PRN PRN Reason: Nausea And Vomiting Stop: 12/27/24 18:30 Last Admin: 12/02/24 21:36 Dose: 4 mg Oxycodone HCl (Oxycodone Hcl Ir 5 Mg Tab (Immediate Release)) 5 mg PO Q6 PRN PRN Reason: Severe Pain (Scale 7, 8, 9,10) Stop: 12/11/24 18:30 Last Admin: 11/28/24 19:41 Dose: 5 mg Oxycodone HCl (Oxycodone Hcl Ir 5 Mg Tab (Immediate Release)) 2.5 mg PO Q6 PRN PRN Reason: Moderate Pain (Scale 4, 5, 6) Stop: 12/11/24 18:30 Pantoprazole Sodium (Pantoprazole 40 Mg Tab) 40 mg PO QAM [facility] Stop: 12/28/24 08:59 Last Admin: 12/04/24 08:37 Dose: 40 mg Polyethylene Glycol (Polyethylene (Miralax) 17 Gm Pack) 17 gm PO DAILY PRN PRN Reason: Constipation Stop: 01/01/25 09:13 Polyethylene Glycol (Polyethylene (Miralax) 17 Gm Pack) 17 gm PO BID [facility] Stop: 01/01/25 20:59 Last Admin: 12/04/24 08:40 Dose: Not Given Potassium Phosphate (Pot Phosphate Monobasic W/ Sod Tab) 1 tab PO QID [facility] Stop: 01/01/25 08:59 Last Admin: 12/04/24 08:39 Dose: 1 tab Sennosides (Senna 8.6 Mg Tab) 8.6 mg PO QAM [facility] Stop: 01/02/25 08:59 Last Admin: 12/04/24 08:40 Dose: Not Given Timolol Maleate (Timolol Maleate 0.5% Op Soln 5 Ml Btl) 1 drops OP QAM [facility] Stop: 12/28/24 08:59 Last Admin: 12/04/24 08:40 Dose: 1 drops (3) Sepsis Sepsis acute organ dysfunction status: unspecified Sepsis type: sepsis due to unspecified organism Qualified Code(s): A41.9 - Sepsis, unspecified organism
[2024-12-04] MEDS: AZITHROMYCIN 250 MG TAB PO SCH (15:42)
--- NOTE | 2024-12-04 17:28 | Billing Data ---
Date of Service December 04, 2024 Coding Level of Care Code 69201 SUB INP/OBS CARE
[2024-12-05 07:36] LABS: Hematocrit (blood only) 23.5 % (37.0-47.0); Hemoglobin 7.7 g/dl (12.0-16.0); Mean Corpuscular Hemoglobin 30.3 pg (25.0-34.0); Mean Corpuscular Volume 92.5 fL (80.0-100.0); Platelet Count 207 K/uL (130-400); RDW Standard Deviation 46.6 fL (36.4-46.3); Red Blood Count 2.54 M/uL (4.20-5.40); White Blood Count 4.21 K/ul (4.8-10.8)
[2024-12-05 08:02] LABS: Alanine Aminotransferase 42.0 U/L (7-52); Albumin Globulin Ratio 0.8 (0.9-2); Alkaline Phosphatase 92.0 U/L (34-104); Anion Gap 3.0 (3-11); Bilirubin,Total 1.8 mg/dl (0.2-1.0); Blood Urea Nitrogen 9.0 mg/dl (6-23); Calcium 7.6 mg/dl (8.6-10.3); Carbon Dioxide 33.0 mmol/L (21-32); Chloride 101.0 mmol/L (98-107); Creatinine Clr Calc Pharmacy 62.8 ml/min; Globulin 3.1 gm/dl (2.5-4.0); Glucose 95.0 mg/dl (70-99(Fasting)); Potassium 3.8 mmol/L (3.5-5.1); Sodium 137.0 mmol/L (136-145); Total Protein 5.6 gm/dl (6.0-8.3)
--- NOTE | 2024-12-05 08:17 | Hospitalist Progress Note ---
Date of Service December 05, 2024 Assessment & Plan (1) Thrombocytopenia: (2) Acute hypotension: (3) Acute hyponatremia: (4) Babesiosis: (5) Transaminitis: (6) Hyponatremia: (7) Hypotension: Plan Patient is an 83-year-old female with past medical history of GERD, she is otherwise healthy and walks 10,000 steps per day. Patient presented after referral by PCP for fevers, chills, body aches, dark urine since Sunday. 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 Patient also noted that she slipped and fell onto her back approximately 3 weeks ago and was found to have a T11 and L2 compression fracture which she has been following with orthospine for. #Atrial Fibrillation - Went to Afib at 22:00 on 11/29. On oral Amiodarone - TTE reveals EF 55-80%; Mild to Moderate MR, Mild to Moderate TR, RVSP elevated at 40-50mm Hg and mildly dilated IV - Started on eliquis #Increased O2 requirement -Likely 2/2 to Babesiosis - On RA -Chest Xray with increased pulmonary markings in both lungs, and bilateral lower zone haziness suggesting edema #Babesiosis #Tick borne illness -Test positive for Babesia - On Atovaquone and Azithromycin -Tylenol 1000mg QID scheduled -Anaplasma and Lyme negative. However it does not rule out the presence of disease. PCR for Lyme and Anaplasma is pending -ID on board. Anaplasma came back negative. Discontinue Doxycycline - Switch to Azithromycin 500mg PO daily -No parasites detected on parasite smear (12/02) #Hypotension -BP improved -Downgrade to Med Surg with Telemetry given BP has been stable off pressors #Hyponatremia -Sodium:131 -Monitor BMP tomorrow AM #Transaminitis -Likely 2/2 to Babesiosis -liver enzymes improving -Monitor CMP daily #Fall/T11 compression fracture/L2 compression fracture - - S/p mechanical fall approximately 3 weeks ago, unrelated to above -Patient already following with orthospine. Continue back brace PT/OT evaluation Continue to follow with orthospine in outpatient setting #Endometrial polyp/mass noted on AP CT Follow-up with outpatient [facility] #GERD continue PPI VTE ppx: On Eliquis Dispo: ICU Admission and Anticipated Discharge Date Admission Date: November 27, 2024 Supervising Physician Co-Signing Physician Notes I personally examined the patient and verified all white points of history and exam, discussed case, and agree with decision making with Dr Sanjiv Ding more bloated and bothering her more. Still trying to eat well. Trying to walk in the halls well. Discussed with case managementnot impossible that she will be able to get a rehab bed today, but not likely. Vitals noted, in general she is awake and alert pleasant fatigued no distress. HEENT normocephalic atraumatic mucous membranes moist. lungs diminished bibasilar and then clear from about the mid lung up. No rales rhonchi or wheezes good effort. Abdomen soft but mild/moderate distention nontender. Sepsis present on admission, due to Babesiosis - With symptoms all explainable by babesiosis, and with Anaplasma PCR negativeagree with disconti nuation of doxycycline. Obviously, if she were to have any recurrent fevers in the next few days to a week the first thought would be to resume Doxy, but I strongly suspect this was entirely babesiosis. Continue azithromycin and atovaquone To finish out course. hypoxiainitially was probably due to BCS, but now her exam is really fitting with atelectasis. Had her demonstrate incentive spirometry and then coached her on using it. Would expect more rapid improvement in hypoxia if she uses incentive spirometry 5 times an hour as well as increased ambulation. Constipationdiscussed abdominal bloating and overflow diarrhea with patient. Discussed that given the overflow diarrhea was bothering her and her belly otherwise was not I had held off on much as far as a bowel regimen, but now that her belly is starting to bother her more I would worry about it starting to get in the way of good p.o. intakeand with that in mind, we discussed a more aggressive bowel regimen. She and her daughter expressed understanding. 85 g of MiraLAX x 1. Leg edemalungs are clear hypoxia is stable, and hypoxia initially better explained 5 obesity and now better explained by atelectasis. I strongly suspect this is all venous stasis and will improve with increased ambulation and time atrial fibrillationrate controlled. On amiodarone for now, on Eliquis Otherwise as above, for rehab once bed is available. Subjective Feel better. Appetite is improving. Remains Afebrile . On RA Review of Systems Review of Systems: As per HPI Physical Exam Physical Exam: Constitutional: Well appearing, No acute distress, PILCCOD: Negative HEENT: Atraumatic, Normocephalic, No conjunctival injection CVS: S1 S2 no murmur, Regular Rhythm, no LE edema Respiratory: BL equal air entry with NVBS. No rhonchi, wheezes, or crackles. No increased work of breathing GI: Soft, Nondistended, Nontender, Normal Bowel sounds + MSK: B/L lower extremities edematous, swelling of hand(left>right) Skin: Warm, Dry, No rashes Neuro: Alert, Oriented to TPP, No Focal deficit Psych: Mood and Affect congruent, Cooperative on exam Results & Data Results & Data Vital Signs (Past 12 Hours) Vital Signs Temp Pulse Resp BP Pulse Ox O2 Del Method O2 Flow Rate 12/05/24 07:48 36.6 C 59 L 16 93/56 L 98 Nasal Cannula 2 (7) Hypotension Hypotension type: unspecified hypotension type Qualified Code(s): I95.9 - Hypotension, unspecified
[2024-12-05 08:25] LABS: ALC (manual) 1.56 K/uL (1.2-3.4); ANC (manual) 1.85 K/uL (1.4-6.5); Polychromasia 1+; Reactive Lymphocytes # (manual) 0.59 K/uL; Reactive Lymphocytes % (manual) 14 %
--- NOTE | 2024-12-05 11:04 | Ultrasound Report ---
HISTORY: Abdominal distention. Evaluation for ascites. TECHNIQUE: Limited four-quadrant abdominal ultrasound evaluation for ascites. COMPARISON: Abdominal CT dated 11/27/2024. FINDINGS: Bilateral pleural effusions are noted. No significant ascites is appreciated. IMPRESSION: * No significant ascites. * Bilateral pleural effusions. Electronically signed by Dewey Albrecht 12-05-2024 11:04 AM
[2024-12-05] MEDS: POLYETHYLENE (MIRALAX) 17 GM PACK PO ONE (12:52)
--- NOTE | 2024-12-05 15:38 | Billing Data ---
Date of Service December 05, 2024 Coding Level of Care Code 56381 SUB INP/OBS CARE
--- NOTE | 2024-12-05 16:43 | XRay Report ---
Clinical History: Possible pleural effusion Technique: A frontal view of the chest was obtained Comparison is made to the prior examination dated 11/30/2024 Findings: There are bilateral lower lobe hazy opacities, concerning for pneumonia. The heart is at the upper limit of normal in size. No pleural effusion or pneumothorax is seen. There is mild diffuse interstitial prominence, concerning for mild pulmonary edema No fracture is noted. No foreign body is seen Impression: Possible combination of mild pulmonary edema and bilateral lower lobe pneumonia ACT 112: Positive. There are findings on this exam that require communication between the performing entity and the patient following Patient Test Result Information Act ([place] ACT 112) guidelines. Electronically signed by Parth Cotton 12-05-2024 4:43 PM
[2024-12-06 06:44] LABS: Hematocrit (blood only) 25.2 % (37.0-47.0); Hemoglobin 8.3 g/dl (12.0-16.0); Mean Corpuscular Hemoglobin 30.7 pg (25.0-34.0); Mean Corpuscular Volume 93.3 fL (80.0-100.0); Platelet Count 237 K/uL (130-400); RDW Standard Deviation 46.5 fL (36.4-46.3); Red Blood Count 2.70 M/uL (4.20-5.40); White Blood Count 4.04 K/ul (4.8-10.8)
--- NOTE | 2024-12-06 07:05 | Hospitalist Progress Note ---
Date of Service December 06, 2024 Assessment & Plan (1) Babesiosis: (2) Transaminitis: (3) Hypotension: Plan Patient is an 83-year-old female with past medical history of GERD, she is otherwise healthy and walks 10,000 steps per day. Patient presented after referral by PCP for fevers, chills, body aches, dark urine since Sunday. 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 Patient also noted that she slipped and fell onto her back approximately 3 weeks ago and was found to have a T11 and L2 compression fracture which she has been following with orthospine for. Requires continued admission for treatment of acute babesiosis and for strengthening, pending discharge to acute rehab. #Babesiosis #Tick borne illness -Test positive for Babesia - On Atovaquone and Azithromycin, continue course for total of 10 days -Tylenol 1000mg QID scheduled -Anaplasma and Lyme negative - doxycycline was discontinued 12/05/24 -No parasites detected on parasite smear (12/02) - thrombocytopenia has resolved #Atrial Fibrillation - Went to Afib at 22:00 on 11/29. On oral Amiodarone - TTE reveals EF 55-80%; Mild to Moderate MR, Mild to Moderate TR, RVSP elevated at 40-50mm Hg and mildly dilated IV - Started on eliquis #Increased O2 requirement -Likely 2/2 to Babesiosis - tolerating 1L/min NC - Cxr with increased pulmonary markings in both lungs, and bilateral lower zone haziness suggesting edema #Hypotension -BP improved, continue monitoring VS #Hyponatremia, resolved -Sodium: 137 -BMP AM #Transaminitis -Likely 2/2 to Babesiosis -liver enzymes improving -Monitor CMP daily #Fall/T11 compression fracture/L2 compression fracture - - S/p mechanical fall approximately 3 weeks ago, unrelated to above -Patient already following with orthospine. Continue back brace PT/OT evaluation Continue to follow with orthospine in outpatient setting #Endometrial polyp/mass noted on AP CT Follow-up with outpatient REHABILITATION COUNSELLOR #GERD continue PPI FEN/GI: _ VTE ppx: On Eliquis Dispo: med/surg Admission and Anticipated Discharge Date Admission Date: November 27, 2024 Supervising Physician Co-Signing Physician Notes I personally examined the patient and verified all white points of history and exam, discussed case, and agree with decision making with Dr Kraft Feeling better overall. Walked the halls something on the order of 6 times so far today and is doing well. Family notes that she is doing surprisingly well with walking. No shortness of breath, I checked her and she is 95% on room air after walking. We are all starting to feel like she probably will not need to go to rehab. Vitals noted, in general she is awake and alert pleasant no distress. HEENT normocephalic atraumatic mucous membranes moist. Breathing unlabored no accessory muscle use good effort. Skin without rashes pallor or icterus. Sepsis present on admission, due to Babesiosis - With symptoms all explainable by babesiosis, and with Anaplasma PCR negativeagree with discontinuation of doxycycline. Obviously, if she were to have any recurrent fevers in the next few days to a week the first thought would be to resume Doxy, but I strongly suspect this was entirely babesiosis. Finished azithromycin today, finishes atovaquone tomorrow. hypoxiainitially was probably due to BCS, but now her exam is really fitting with atelectasis. Improved nicely, now off of oxygen Constipation improved Leg edemalungs are clear hypoxia is stable, and hypoxia initially better explained 5 obesity and now better explained by atelectasis. I strongly suspect this is all venous stasis and will improve with increased ambulation and time atrial fibrillationrate controlled. discussed risk/benefits/controversy in looking at "provoked A-fib"discussed that her rates have been great, and I do not think she will need amiodarone at discharge or any other rate controlling medications (instead we discussed simply spot checking her pulse once a dayshe has a Fitbit which will make this even easier), did discuss that while it is somewhat debatable, the stroke risk is likely to be there because it is quite probable for someone to have paroxysmal A-fib and not feel itsand in that respect risk/benefit in my opinion would favor anticoagulation, although I openly discussed that this is more debatable. She agreed, and at least for now we will have her on Eliquis for the indefinite future doing so much better that rehab no longer appears to be necessaryanticipate home tomorrow after her a.m. atovaquone dose. Subjective Julianna was seen and evaluated at bedside this AM, denies any pain or concerning symptoms aside from abdomen still being a bit swollen, although improving. Notes she had a significant bowel movement overnight which has given her some relief, feels less bloated than day prior. States she did 5 laps around the floor yesterday, willing to do the same or more today. Also has been eating most of each of her meals. Also denies any SOB, was on 2L NC but was willing to try 1L NC. Review of Systems Review of Systems: As per HPI Physical Exam Physical Exam: Constitutional: A&Ox3, well appearing, no acute distress, tolerating 1L NC HEENT: NC/AT, EOM intact, anicteric sclerae, no conjunctival injection CV: RRR, +s1/s2, no m/r/g Resp: clear to auscultation b/l, no w/r/R; no increased work of breathing GI/Abd: Soft, Nondistended, Nontender, Normal Bowel sounds + MSK: b/l LE with knee-high compression stockings, 1+ pitting edema at knee level; mild swelling of hands L>R Skin: Warm, Dry, no rash observed Neuro: no facial droop, speech intact, no focal deficits Psych: mood-affect congruence, good eye contact Results & Data Results & Data Vital Signs (Past 12 Hours) Vital Signs Temp Pulse Resp BP Pulse Ox O2 Del Method O2 Flow Rate 12/05/24 20:20 Nasal Cannula 2 12/05/24 19:38 36.6 C 52 L 18 118/69 97 Nasal Cannula 2 Resident Activity Tracking Resident Involvement: Resident Care Provided Care Provided: Adult Hospital Medicine (3) Hypotension Hypotension type: unspecified hypotension type Qualified Code(s): I95.9 - H ypotension, unspecified
[2024-12-06 07:11] LABS: Alanine Aminotransferase 33.0 U/L (7-52); Albumin Globulin Ratio 0.8 (0.9-2); Alkaline Phosphatase 88.0 U/L (34-104); Anion Gap 2.0 (3-11); Bilirubin,Total 1.6 mg/dl (0.2-1.0); Blood Urea Nitrogen 8.0 mg/dl (6-23); Calcium 7.9 mg/dl (8.6-10.3); Carbon Dioxide 33.0 mmol/L (21-32); Chloride 103.0 mmol/L (98-107); Creatinine Clr Calc Pharmacy 65.7 ml/min; Globulin 3.2 gm/dl (2.5-4.0); Glucose 95.0 mg/dl (70-99(Fasting)); Potassium 4.2 mmol/L (3.5-5.1); Sodium 138.0 mmol/L (136-145); Total Protein 5.9 gm/dl (6.0-8.3)
[2024-12-06 08:17] LABS: Immature Granulocytes # (auto) 0.06 K/uL (0.01-0.20); Immature Granulocytes % (auto) 1.5 %; Polychromasia 1+
--- NOTE | 2024-12-06 16:47 | Billing Data ---
Date of Service December 06, 2024 Coding Level of Care Code 17113 SUB INP/OBS CARE MIN
[2024-12-06 20:10] VITALS: TEMP 98.1
[2024-12-07 06:57] LABS: Hematocrit (blood only) 25.4 % (37.0-47.0); Hemoglobin 8.0 g/dl (12.0-16.0); Mean Corpuscular Hemoglobin 30.5 pg (25.0-34.0); Mean Corpuscular Volume 96.9 fL (80.0-100.0); Platelet Count 236 K/uL (130-400); RDW Standard Deviation 48.5 fL (36.4-46.3); Red Blood Count 2.62 M/uL (4.20-5.40); White Blood Count 4.02 K/ul (4.8-10.8)
[2024-12-07 07:26] VITALS: PULSE 57; RESP 16; O2SAT 93
--- NOTE | 2024-12-07 10:22 | Discharge Summary ---
Date of Service December 07, 2024 Admission HPI Per Admitting Provider Patient is an 83-year-old female with past medical history of GERD, she is otherwise healthy and walks 10,000 steps per day. Patient presented after referral by PCP for fevers, chills, body aches, dark urine since Sunday. 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 Patient also noted that she slipped and fell onto her back approximately 3 weeks ago and was found to have a T11 and L2 compression fracture which she has been following with orthospine for. Patient seen with daughter at bedside. Patient stated on Sunday she began with chills. On Sunday she felt pretty well and went on a walk into see Dr. John for her spine. Sunday she then began to develop significant fatigue and laid in bed for most of the day. Her daughter noticed a fever on Sunday and took her temperature which was 104 F, which resolved with cold compress and Tylenol. Patient also noted she has had dark yellow/orangecolored urine for the past 2 to 3 days as well as muscle aches. Patient stated she typically has episodes where she gasps for air when she is sick, which she did the first few days however now resolved, denies any shortness of breath, chest pain, acid reflux. She has not been able to eat or drink much for the past few days due to feeling sick. She typically has constipation at baseline however stated her stool is softer. She endorses nausea but no vomiting. She is feeling fatigued and with significant joint pain at bedside. She stated she was bit by a tick many years ago and was prescribed an antibiotic by urgent care, asymptomatic since. She denies any recent tick bites, no pets in her home; however [facility] and [place] [facility] daily. She denies any recent travel outside of the country. Patient also noted she slipped and fell while walking approximately 3 weeks ago landing on her buttocks. She had outpatient imaging which revealed possible compression fracture of her spine, she saw orthospine who stated it was unclear as to whether this was acute or chronic. She is treating this with Tylenol and a back brace. She has been taking Tylenol scheduled every 8 hours for the past few weeks and intermittent Advil as needed. Patient denies any significant nicotine or alcohol use. She did take her home medications this morning. She has a living will stating DNR/DNI status which she would like to maintain. Admission Exam Per Admitting Provider The patient is awake, alert and oriented 3, well developed and well nourished, normocephalic and atraumatic, in no acute distress. Non-toxic appearing. HEENT- EOMI, mucous membranes dry. Hearing grossly intact. Heart-normal S1 and S2. No murmurs, rubs or gallops. Lungs-clear bilaterally, no respiratory distress, no accessory muscle use. Abdomen-normal bowel sounds and soft. No ascites noted. Non-tender. Extremities- no clubbing, cyanosis, or edema. Rheumatologic-normal range of motion. Psychiatric-normal affect. Principal Diagnosis babesiosis Discharge Exam Constitutional: A&Ox3, well appearing, no acute distress, tolerating room air HEENT: NC/AT, EOM intact, anicteric sclerae, no conjunctival injection CV: RRR, +s1/s2, no m/r/g Resp: clear to auscultation b/l, no w/r/R; no increased work of breathing GI/Abd: Soft, Nondistended, Nontender, Normal Bowel sounds + MSK: trace edema b/l LE, 5/5 strength in b/l UE and LE Skin: Warm, dry, no rash observed Neuro: no facial droop, speech intact, no focal deficits Psych: mood-affect congruence, good eye contact Discharge Data Allergies Allergy/AdvReac Type Severity Reaction Status Date / Time No Known Allergies Allergy Unknown Verified 11/27/24 14:38 Consultations 11/27/24 13:24 ED Decision to Admit Stat 11/27/24 20:48 Consult Infectious Diseases Routine 11/28/24 15:25 Consult [employer] Set Up Technician Stat 11/30/24 07:20 Consult Cardiology Routine Ordered Studies 11/27/24 11:49 CT Abd and Pelvis [CT abd pelvis IV con only] Stat 12/05/24 09:29 US abdomen ltd ascites Routine Hospital Course (1) Babesiosis: (2) Transaminitis: (3) Hypotension: Plan Patient is an 83-year-old female with past medical history of GERD, she is otherwise healthy and walks 10,000 steps per day. Patient presented after referral by PCP for fevers, chills, body aches, dark urine since Sunday. 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 Patient also noted that she slipped and fell onto her back approximately 3 weeks ago and was found to have a T11 and L2 compression fracture which she has been following with orthospine for. Requires continued admission for treatment of acute babesiosis and for strengthening, pending discharge to acute rehab. #Babesiosis #Tick borne illness -Test positive for Babesia - Completed appropriate abx course: Anaplasma and Lyme negative - doxycycline was discontinued 12/05/24, azithromycin completed 12/06/24, atovaquone completed 12/07/24 -No parasites detected on parasite smear (12/02) - thrombocytopenia has resolved #Atrial Fibrillation - Went to [facility] at 22:00 on 11/29. On oral Amiodarone - TTE reveals EF 55-80%; Mild to Moderate MR, Mild to Moderate TR, RVSP elevated at 40-50mm Hg and mildly dilated IV - Continue on eliquis 5mg BID #Increased O2 requirement, resolved Tolerating room air - Cxr with increased pulmonary markings in both lungs, and bilateral lower zone haziness suggesting edema #Hypotension -BP improved, continue monitoring VS #Hyponatremia, resolved -Sodium: 137, stable #Transaminitis -Likely 2/2 to Babesiosis -liver enzymes improving #Fall/T11 compression fracture/L2 compression fracture - - S/p mechanical fall approximately 3 weeks ago, unrelated to above -Patient already following with orthospine. Continue back brace PT/OT evaluation Continue to follow with orthospine in outpatient setting #Endometrial polyp/mass noted on AP CT Follow-up with outpatient DIRECTOR OF BLOOD #GERD continue PPI Total Time Total Time Spent Total Time Spent (In Minutes): <30 Discharge Plan Discharge Items Patient Disposition: Home - Self-Care Reason For Visit: BABESIA, HYPOTENSION Discharge Diagnosis: babesiosis, sepsis Condition on Discharge: Fair Activity: Resume your previous activity Non-emergency contact: Primary Care Provider Call non-emergency contact if: your symptoms worsen and your pain is not controlled Follow-up/Referrals: Saadia Pereira DO [Primary Care Provider] - Diet: Regular Addtl Attending Provider Instructions: You presented after referral by PCP for fevers, chills, body aches, dark urine in November 2024. At [facility], you tested positive for babesiosis. You also slipped and fell onto your back approximately 3 weeks prior to admission, found to have a T11 and L2 compression fracture which you have been following with orthospine for. Due to your significant clinical improvement and strength, we feel comfortable with your discharge today 12/07/24 without acute rehab. #Babesiosis #Tick borne illness -Test positive for Babesia - Completed appropriate abx course: Anaplasma and Lyme negative - doxycycline was discontinued 12/05/24, azithromycin completed 12/06/24, atovaquone completed 12/07/24 -No parasites detected on parasite smear (12/02) - thrombocytopenia has resolved #Atrial Fibrillation - Went to [facility] at 22:00 on 11/29. On oral Amiodarone - TTE reveals EF 55-80%; Mild to Moderate MR, Mild to Moderate TR, RVSP elevated at 40-50mm Hg and mildly dilated IV - Continue on eliquis 5mg twice daily #Increased O2 requirement, resolved Tolerating room air - Cxr with increased pulmonary markings in both lungs, and bilateral lower zone haziness suggesting edema #Hypotension -BP improved, continue monitoring VS #Hyponatremia, resolved -Sodium: 137, stable #Transaminitis -Likely 2/2 to Babesiosis -liver enzymes improving - check CMP with primary care outpatient #Fall/T11 compression fracture/L2 compression fracture - - S/p mechanical fall approximately 3 weeks ago, unrelated to above -Patient already following with orthospine. Continue back brace Continue to follow with orthospine in outpatient setting #Endometrial polyp/mass noted on AP CT Follow-up with outpatient DIRECTOR OF BLOOD #GERD continue PPI Pending Studies at Discharge: No Stand-Alone Forms: My [facility] Candescent Soft[employer], Smoking Cessation Medications and DC Order Prescriptions: New Eliquis 5 mg Tablet 5 mg PO BID Qty: 60 0RF Continued Hair,Skin and Nails Tablet 1 tab PO DAILY multivitamin Tablet 1 tab PO DAILY cholecalciferol (vitamin D3) 50 mcg (2,000 unit) capsule 50 mcg PO DAILY timolol 0.5 % drops 1 drp ophthalmic (eye) QAM latanoprost 0.005 % drops 1 drp ophthalmic (eye) HS acetaminophen 500 mg Tablet 500 mg PO Q6H PRN (Reason: Pain) pantoprazole 20 mg tablet,delayed release (DR/EC) 20 mg PO QAM Rx Instructions: TAKE 1 TABLET BY MOUTH DAILY estradiol 0.01 % (0.1 mg/gram) cream 0.5 g vaginal HS PRN (Reason: dryness) Rx Instructions: use externally nightly for 3 months Discharge Orders: Discharge Order (Routine); Ordered 12/07/24 Ordered By: Dewey Peña/Other Patient Handouts: Tick Bites, ED Tick Facts Admission Data Admit Date/Time: 11/27/24 15:10 Attending Provider: Kenneth Morgan Admit Provider: Faraz Andrade Primary Care Provider: Saadia Pereira Other Providers: [facility]; Armen Rodriguez at [place]; [facility]; Faraz Andrade; Devyn Burnett; Alberto Diego; Joseph Shane; Cirilo Barahona; Nate Dodd; Efren Novak; Isiah Cruz Jr; Olegario Mondragon; Pearl Chicas; Marilee Hansen; Frederick Sethi; Frederick Holloway; Kirstin Jarvis; Zac Najera; Yoshi Heredia; Khadijah Soria; Yoshi Potter; Neeraj Chiu; Marco Martinez; Tato Rodrigues; Jackson Longoria; Samuel Guo; Kimberly Prado Other Interventions: Discharge Summary Assessment (RN) Last Done: 12/07/24 07:25 Supervising Physician Co-Signing Physician Notes I personally examined the patient and verified all white points of history and exam, discussed case, and agree with decision making with Dr Kraft feels up to going home! Doing well overall.. Vitals noted, in general she is awake and alert pleasant no distress. HEENT normocephalic atraumatic mucous membranes moist. Breathing unlabored no accessory muscle use good effort. Skin without rashes pallor or icterus. Sepsis present on admission, due to Babesiosis - With symptoms all explainable by babesiosis, and with Anaplasma PCR negativeagree with discontinuation of doxycycline. Obviously, if she were to have any recurrent fevers in the next few days to a week the first thought would be to resume Doxy, but I strongly suspect this was entirely babesiosis. Finished 10 days of azithromycin and atovaquone hypoxiainitially was probably due to BCS, but now her exam is really fitting with atelectasis. Improved nicely, now off of oxygen Constipation improved overall, discussed ongoing outpatient management if needed Leg edemalungs are clear hypoxia is stable, and hypoxia initially better explained by babesiosis and now better explained by atelectasis. I strongly suspect this is all venous stasis and will improve with increased ambulation and time atrial fibrillationrate controlled. discussed risk/benefits/controversy in looking at "provoked A-fib"discussed that her rates have been great, and I do not think she will need amiodarone at discharge or any other rate controlling medications (instead we discussed simply spot checking her pulse once a dayshe has a Fitbit which will make this even easier), did discuss that while it is somewhat debatable, the stroke risk is likely to be there because it is quite probable for someone to have paroxysmal A-fib and not feel itsand in that respect risk/benefit in my opinion would favor anticoagulation, although I openly discussed that this is more debatable. She agreed, and at least for now we will have her on Eliquis for the indefinite future doing so much better that rehab no longer appears to be necessary home today, close outpatient follow-up Rx for walker and outpt PT given Resident Activity Tracking Resident Involvement: Resident Care Provided Care Provided: Adult Hospital Medicine
[2024-12-07 11:29] VITALS: BP 148/75
--- NOTE | 2024-12-07 13:24 | Billing Data ---
Date of Service December 07, 2024 Coding Level of Care Code 58377 IN/OBS DISCH 30 MIN/LESS
== END 2024-12-07 12:35 | disposition home or self-care (01) | DRG 871 ==
LOC: ED 11:24 → 2N 15:10 → SUATTDRO 15:10 → 2N 18:00 → 2S 11-28 08:42 → 1E 11-28 15:24 → 2S 12-02 15:07 → 3E 12-03 18:21